=== PATIENT | female | born 1940 ===

== ENCOUNTER 2017-12-28 11:07 | Day surgery (SDC) | payer MEDICARE ==
[2017-12-23 14:18] VITALS: BMI 26.9
[2017-12-28] MEDS ORDERED: Propofol 10 mg/ml Inj (20 ML) ONE (13:54)
[2017-12-28 14:56] VITALS: RESP 16
[2017-12-28] MEDS ORDERED: Sodium Chloride 0.9% 1,000 ML IV SCH (15:00)
[2017-12-28 15:26] VITALS: PULSE 61
[2017-12-28 15:45] VITALS: BP 135/65; TEMP 98; O2SAT 99
== END 2017-12-28 16:20 | disposition home or self-care (01) ==
LOC: ENDO 11:07
PROVIDERS: ATTEND Internal Medicine Gastroenterology
DX: K92.1 Melena (principal); K63.5 Polyp of colon; K57.30 Diverticulosis of large intestine without perforation or abscess without bleeding; K64.8 Other hemorrhoids; K29.50 Unspecified chronic gastritis without bleeding
CPT/HCPCS: 43239; 45385; 88305; 88342; J2704; J7030; J7040

== ENCOUNTER 2018-07-20 07:04 | Outpatient (CLI) | payer MEDICARE | END 2018-07-20 07:05 | disposition home or self-care (01) | LOC: CARDIO 07:04 ==

== ENCOUNTER 2018-08-03 16:23 | Outpatient (CLI) | payer MEDICARE | END 2018-08-03 16:24 | disposition home or self-care (01) | LOC: RAD 16:24 | DX: G43.909 Migraine, unspecified, not intractable, without status migrainosus (principal); I73.9 Peripheral vascular disease, unspecified ==

== ENCOUNTER 2018-08-03 17:09 | Inpatient (IN) | payer MEDICARE ==
[2018-08-03 17:16] VITALS: BMI 25.1
--- NOTE | 2018-08-03 17:18 | ED PDOC ---
Arrival/HPI - General Time Seen by Provider: 08/03/18 17:10 - History of Present Illness Narrative History of Present Illness (Text): 78 y/o F c PMHx HTN, HLD, spontaneous ICH 15 years ago p/w intracranial hemorrhage. Patient has been having intermittent headache for approximately 1 week. Patient states headache was worst 3 nights ago[address] Sent to [facility] by LINDA Renteria for CT Head and found to have hemorrhage with mass effect and transported directly to ED. Patient denies any vision change, vomiting, numbness, weakness, confusion, trauma. Past Medical History - Cardiac Hx Hypertension: Yes - Neurological Hx Paralysis: No - Hematological/Oncological Hx Blood Transfusions: No - Musculoskeletal/Rheumatological Hx Musculoskeletal Disorders: Yes - Psychiatric Hx Emotional Abuse: No Hx Physical Abuse: No Hx Substance Use: No - Anesthesia Hx Anesthesia Reactions: No Hx Malignant Hyperthermia: No - Suicidal Assessment Feels Threatened In Home Enviroment: No Family/Social History Family/Social History: No Known Family HX Hx Alcohol Use: No Hx Substance Use: No Allergies/Home Meds Allergies/Adverse Reactions: Allergies No Known Allergies Allergy (Verified 12/23/17 14:18) Home Medications: Home Meds Medication Instructions Recorded Confirmed Calcium Carbonate [Calcium] 1,000 mg PO DAILY 12/23/17 07/20/18 Cholecalciferol (Vitamin D3) 2,000 units PO DAILY 12/23/17 07/20/18 [Vitamin D3] Raloxifene [Evista] 60 mg PO DAILY 12/23/17 07/20/18 Rosuvastatin Calcium [Crestor] 10 mg PO QOTHERDAY 12/23/17 07/20/18 Candesartan Cilexetil [Atacand] 4 mg PO DAILY 07/20/18 07/20/18 [id number] Ethyl Esters [OMEGA 3] 500 mg PO DAILY 07/20/18 07/20/18 Propranolol [Propranolol HCl] 10 mg PO DAILY 07/20/18 07/20/18 Review of Systems - Physician Review All systems were reviewed & negative as marked: Yes - Review of Systems Constitutional: absent: Fevers Respiratory: absent: SOB Cardiovascular: absent: Chest Pain Gastrointestinal: absent: Vomiting Physical Exam - Physical Exam Narrative Physical Exam (Text): Gen: NAD Head: NC/AT Eyes: PERRL ENT: MMM Neck: Supple Chest: No tenderness CV: Regular rate Lungs: CTA b/l Abd: Soft, NT Back: No CVA tenderness Skin: No rash Extremities: No edema Neuro: Alert, no focal deficit. CN II to XII intact. Motor 5/5 x 4. Sensation to light touch intact. Gait normal. Medical Decision Making ED Course and Treatment: EKG 63 bpm, no ST/T wave changes CXR no acute disease. Dr. Simon recommends cardene drip for SBP 120-150. HOB placed at 45 degrees. Keppra administered. Patient on no AC due to previous history of ICH. Dr. Norman consulted, recommends repeat CT at 6am. ICU accepts. Disposition/Present on Arrival - Present on Arrival Any Indicators Present on Arrival: No - Disposition Have Diagnosis and Disposition been Completed?: Yes Diagnosis: Intracranial hemorrhage Disposition: HOSPITALIZED Disposition Time: 18:30 Patient Plan: Admission, ICU Condition: CRITICAL
[2018-08-03] MEDS ORDERED: levETIRAcetam 1000mg/100ml NS 100 ML IV ONE (17:23)
[2018-08-03] MEDS ORDERED: Nicardipine 20 MG/200 ML 20 MG/200 ML BAG IV PRN (17:57)
[2018-08-03 18:17] LABS: BASO # 0.04 K/mm3 (0.0-2.0); BASO % 0.4 % (0.0-3.0); EOS # 0.1 (0.0-0.7); EOS % 1.3 % (1.5-5.0); HEMOGLOBIN 12.6 g/dL (12.0-16.0); LYMPH # 1.9 (1.2-3.4); MEAN CORPUSCULAR HEMOGLOBIN 27.8 pg (25.0-35.0); MEAN CORPUSCULAR HGB CONC 32.7 g/dl (31.0-37.0); MONO # 0.9 (0.1-0.6); MONO % 8.9 % (1.0-6.0); RBC 4.53 10^6/uL (3.5-6.1); RED CELL DISTRIBUTION WIDTH 13.6 % (11.5-14.5); WHITE BLOOD COUNT 9.5 10^3/uL (4.5-11.0)
[2018-08-03 18:26] LABS: INR 1.21; PARTIAL THROMBOPLASTIN TIME 33.2 Seconds (26.9-38.3); PROTHROMBIN TIME 13.4 SECONDS (9.4-12.5)
[2018-08-03 18:34] LABS: ALB/GLOB RATIO 1.1 (1.1-1.8); ALBUMIN 4.4 g/dL (3.0-4.8); ALT/SGPT 23 U/L (7-56); AST/SGOT 25 U/L (14-36); BLOOD UREA NITROGEN 21 mg/dL (7-21); CALCIUM 9.8 mg/dL (8.4-10.5); GFR NON-AFRICAN AMERICAN > 60
--- NOTE | 2018-08-03 21:27 | CP.PCM.HP ---
History of Present Illness - History of Present Illness History of Present Illness: Medicine History and Physical for Hospitalist Service, Dr. Torin Byers, DO PGY-1 This is a 78 y o female with PMhx HTN, HLD, prior spontaneous intracranial hemorrhage of unknown etiology 15 y ago, R breast cancer s/p lumpectomy in remission x 17 years, who presents to the ED sent in by her PMD Dr. Renteria for a bnormal Head CT results. Pt states that she has been having an intermittent headache for the past week. States the SHORT is localized to the R side of her head; pt describes the SHORT as "pushing toward the middle of my head against my brain". States the worst of her symptoms occurred 3 days ago. Pt states she went to her PMD's office with c/o these symptoms and that he sent her to do a CT scan of the head as outpatient at [facility] for further work-up. CT of Head at 16:39 on 08/03/18 demonstrated "intraparenchymal hemorrhage at the R parietal lobe with significant mass effect partially effacing the atrium of the R lateral ventricle; no significant midline shift, diffuse cerebral atrophy, chronic microangiopathy." Pt's PMD was notified by the radiologist at [facility] of the abnormal CT findings and thus instructed the pt to come to the ED immediately. Pt states her SHORT is resolved currently. Denies vision changes, tinnitus, changes in speech or being unable to articulate words, difficulty swallowing, gene ralized weakness, chest pain, sob, n/v/d/c, abd pain, urinary complaints, gait difficulties, or other symptoms. PMhx: HTN, HLD, prior spontaneous intracranial hemorrhage of unknown etiology 15 y ago, R breast cancer s/p lumpectomy in remission x 17 years PSurgHx: S/p R lumpectomy in 1994 for R breast cancer Allergies: NKDA Home meds: Propranolol 10 mg bid, Raloxifene 60 mg daily, Crestor 10 mg (takes 3 times/week) Fam hx: denies hx stroke, aneurysm, seizures, or sudden cardiac Soc hx: denies smoking, EtOH or illicit drug use PMD: Dr. Renteria Present on Admission - Present on Admission Any Indicators Present on Admission: No History of DVT/PE: No History of Uncontrolled Diabetes: No Urinary Catheter: No Decubitus Ulcer Present: No Review of Systems - Constitutional Constitutional: absent: Chills, Fever, Headache - EENT Eyes: absent: Blurred Vision, Change in Vision, Photophobia, Tunnel Vision Ears: absent: Tinnitus Nose/Mouth/Throat: absent: Dysphagia - Cardiovascular Cardiovascular: absent: Chest Pain, Dyspnea on Exertion, Leg Edema, Palpitations, Syncope - Respiratory Respiratory: absent: Cough, Dyspnea on Exertion - Neurological Neurological: Dizziness, Headaches. absent: Abnormal Gait, Abnormal Hearing, Abnormal Movements, Abnormal Speech, Behavioral Changes, Confusion, Numbness, Focal Weakness, Tingling, Tremor, Weakness Past Patient History - Past Social History Smoking Status: Never Smoked - CARDIAC Hx Hypertension: Yes - NEUROLOGICAL Hx Paralysis: No - HEMATOLOGICAL/ONCOLOGICAL Hx Blood Transfusions: No - MUSCULOSKELETAL/RHEUMATOLOGICAL Hx Musculoskeletal Disorders: Yes - PSYCHIATRIC Hx Emotional Abuse: No Hx Physical Abuse: No Hx Substance Use: No - SURGICAL HISTORY Hx Surgeries: Yes - ANESTHESIA Hx Anesthesia Reactions: No Hx Malignant Hyperthermia: No Meds Allergies/Adverse Reactions: Allergies Allergy/AdvReac Type Severity Reaction Status Date / Time No Known Allergies Allergy Verified 12/23/17 14:18 Physical Exam - Constitutional Appears: Non-toxic, No Acute Distress - Head Exam Head Exam: ATRAUMATIC, NORMOCEPHALIC - Eye Exam Eye Exam: EOMI, Normal appearance, PERRL - ENT Exam ENT Exam: Mucous Membranes Moist - Neck Exam Neck exam: Positive for: Full Rom, Normal Inspection. Negative for: Tenderness - Respiratory Exam Respiratory Exam: Clear to Auscultation Bilateral, NORMAL BREATHING PATTERN. absent: Rales, Rhonchi, Wheezes - Cardiovascular Exam Cardiovascular Exam: REGULAR RHYTHM, +S1, +S2. absent: Gallop, Rubs, Systolic Murmur - GI/Abdominal Exam GI & Abdominal Exam: Normal Bowel Sounds, Soft. absent: Distended, Organomegaly, Tenderness - Extremities Exam Extremities exam: Positive for: full ROM, normal capillary refill, normal inspection, pedal pulses present. Negative for: calf tenderness, pedal edema - Expanded Neurological Exam Expanded Patient oriented to: person, place, time Cranial nerves: EOM's Intact: Normal, Facial Sensation: Normal Cerebellar Function: Finger to Nose: Normal, Romberg: Normal Upper motor neuron: Babinski Sign: Normal, Pronator Drift: Normal Sensory exam: Lower Extremity 2 Point Discrimination: Normal, Lower Extremity Light Touch: Normal, Lower Extremity Pin Prick: Normal, Lower Extremity Temperature: Normal, Upper Extremity 2 Point Discrimination: Normal, Upper Extremity Light Touch: Normal, Upper Extremity Pin Prick: Normal, Upper Extremity Temperature: Normal Neuro motor strength exam: Left Upper Extremity: 5, Right Upper Extremity: 5, Left Lower Extremity: 5, Right Lower Extremity: 5 DTR: Patellar Left: 0, Patellar Right: 0 Coma Scale Eye Opening: SPONTANEOUS Coma Scale Motor Response: OBEYS COMMANDS Coma Scale Verbal: Oriented Coma Scale Total: 15 - Psychiatric Exam Psychiatric exam: Normal Affect, Normal Mood - Skin Skin Exam: Dry, Intact, Normal Color, Warm Results - Vital Signs Recent Vital Signs: Last Vital Signs Temp 98.5 F 08/03/18 17:25 Pulse 75 08/03/18 19:00 Resp 18 08/03/18 19:00 BP 149/80 08/03/18 19:00 Pulse Ox 95 08/03/18 19:00 - Labs Result Diagrams: 08/03/18 17:50 08/03/18 17:50 Labs: Laboratory Results - last 24 hr 08/03/18 08/03/18 08/03/18 17:50 17:50 17:50 WBC 9.5 RBC 4.53 Hgb 12.6 Hct 38.5 MCV 85.0 MCH 27.8 MCHC 32.7 RDW 13.6 Plt Count 198 MPV 12.0 H Neut % (Auto) 69.4 H Lymph % (Auto) 20.0 L Maverick % (Auto) 8.9 H Eos % (Auto) 1.3 L Baso % (Auto) 0.4 Lymph # (Auto) 1.9 Maverick # (Auto) 0.9 H Eos # (Auto) 0.1 Baso # (Auto) 0.04 Absolute Neuts (auto) 6.61 H PT 13.4 H INR 1.21 APTT 33.2 Sodium 139 Potassium 3.9 Chloride 105 Carbon Dioxide 27 Anion Gap 11 BUN 21 Creatinine 0.9 Est GFR ( Amer) > 60 Est GFR (Non-Af Amer) > 60 Random Glucose 127 H Calcium 9.8 Total Bilirubin 0.9 AST 25 ALT 23 Alkaline Phosphatase 58 Total Protein 8.3 Albumin 4.4 Globulin 3.9 Albumin/Globulin Ratio 1.1 Blood Type Antibody Screen BBK History Checked 08/03/18 17:50 WBC RBC Hgb Hct MCV MCH MCHC RDW Plt Count MPV Neut % (Auto) Lymph % (Auto) Maverick % (Auto) Eos % (Auto) Baso % (Auto) Lymph # (Auto) Maverick # (Auto) Eos # (Auto) Baso # (Auto) Absolute Neuts (auto) PT INR APTT Sodium Potassium Chloride Carbon Dioxide Anion Gap BUN Creatinine Est GFR ( Amer) Est GFR (Non-Af Amer) Random Glucose Calcium Total Bilirubin AST ALT Alkaline Phosphatase Total Protein Albumin Globulin Albumin/Globulin Ratio Blood Type O POSITIVE Antibody Screen Negative BBK History Checked No verified bt Assessment & Plan - Assessment and Plan (Free Text) Assessment: This is a 78 y o female with PMhx HTN, HLD, prior spontaneous intracranial h emorrhage of unknown etiology 15 y ago, R breast cancer s/p lumpectomy in remission x 17 years, who presents to the ED sent in by her PMD Dr. Renteria for abnormal Head CT results. Admitted for Intracranial Hemorrhage. Neurology and Neurosurgery consulted. Plan: Intracranial Hemorrhage Possibly 2/2 to small vessel dz; pt denies hx trauma, aneurysm or AVM Admit to ICU Neurology (Dr. Simon) and Neurosurgery consulted (Dr. Norman), recs appreciated; specialists recommend repeat CT head at 6 am tomorrow CTA head/neck study done, f/u results EKG on admission NSR at [address], [address]-t wave changes appreciated Neuro checks q 1 h Seizure/fall precautions Elevate head of bed at 45 degrees NPO Speech/swallow eval pending On Cardene drip Loaded w/ Keppra x1 in ED A1c pending Hx HTN BP 149/80, cont to trend vitals, goal to keep systolic BP 140-160 Home med Propranolol held on admission Currently on Cardene drip Hx HLD C/w home med Crestor Lipid panel pending Hx R breast ca s/p lumpectomy Home med Raloxifene held on admission Pt seen, examined with, and plan discussed with Dr. Torin Macdonald, attending physician. Trino Byers DO PGY-1, Director Of Elementary Education Pager #[phone]
[2018-08-04 06:24] LABS: BASO # 0.04 K/mm3 (0.0-2.0); BASO % 0.4 % (0.0-3.0); EOS # 0.2 (0.0-0.7); EOS % 2.5 % (1.5-5.0); HEMOGLOBIN 11.3 g/dL (12.0-16.0); LYMPH # 1.7 (1.2-3.4); LYMPH % 18.3 % (22.0-35.0); MEAN CELL VOLUME 84.7 fl (80.0-105.0); MEAN CORPUSCULAR HGB CONC 31.9 g/dl (31.0-37.0); MEAN PLATELET VOLUME 12.1 fl (7.0-11.0); MONO # 0.7 (0.1-0.6); MONO % 7.9 % (1.0-6.0); RBC 4.18 10^6/uL (3.5-6.1); RED CELL DISTRIBUTION WIDTH 13.6 % (11.5-14.5); WHITE BLOOD COUNT 9.2 10^3/uL (4.5-11.0)
[2018-08-04 06:32] LABS: ALB/GLOB RATIO 1.1 (1.1-1.8); ALBUMIN 3.8 g/dL (3.0-4.8); ALT/SGPT 22 U/L (7-56); AST/SGOT 21 U/L (14-36); BLOOD UREA NITROGEN 20 mg/dL (7-21); CALCIUM 9.1 mg/dL (8.4-10.5); GFR NON-AFRICAN AMERICAN > 60; HDL CHOLESTEROL 49 mg/dL (29-60)
[2018-08-04 06:42] LABS: LDL CHOLESTEROL 49 mg/dL (0-129)
--- NOTE | 2018-08-04 08:47 | CP.CCUPN ---
<Wilfrid Ulrich - Last Filed: 08/04/18 15:07> CCU Subjective - Physician Review Subjective (Free Text): 08/04/18 08:43 Wilfrid Ulrich PGY1 Critical Care Progress Note Patient seen and examined at bedside. No acute events reported overnight. Patient seen resting comfortably and denies any complaints at this time. She denies CP, SOB, headaches, blurry vision, tinnitus, nausea, vomiting, abdominal pain, urinary complaints, numbness, tingling and swelling. She states she slept comfortably and has good appetite. Per neurosurgery, no intervention at this time. Patient transferred to [facility]. CCU Objective - Vital Signs / Intake & Output Vital Signs (Last 4 hours): Vital Signs Pulse Resp BP Pulse Ox 08/04/18 08:10 59 L 15 95 08/04/18 08:00 58 L 21 115/60 95 08/04/18 07:50 68 17 93 L 08/04/18 07:40 68 31 H 93 L 08/04/18 07:30 70 20 93 L 08/04/18 07:20 74 93 L 08/04/18 07:10 68 13 94 L 08/04/18 07:00 65 117/57 L 95 08/04/18 06:50 70 19 95 08/04/18 06:40 68 94 L 08/04/18 06:30 74 19 95 08/04/18 06:20 71 16 94 L 08/04/18 06:18 71 16 109/45 L 93 L 08/04/18 06:17 73 14 08/04/18 05:57 65 18 106/54 L 95 08/04/18 05:50 55 L 18 93 L 08/04/18 05:40 53 L 17 92 L 08/04/18 05:30 62 11 L 95 08/04/18 05:20 56 L 17 92 L 08/04/18 05:10 55 L 17 92 L 08/04/18 05:00 63 13 99/46 L 93 L 08/04/18 04:50 57 L 17 91 L Intake and Output (Last 8hrs): Intake & Output 08/03/18 08/04/18 08/04/18 22:59 06:59 14:59 Weight 137 lb 9.6 oz 140 lb 1.6 oz - Physical Exam Head: Positive for: Normocephalic Pupils: Positive for: PERRL Extroacular Muscles: Positive for: EOMI Mouth: Positive for: Moist Mucous Membranes Neck: Positive for: Normal Range of Motion Respiratory/Chest: Positive for: Clear to Auscultation. Negative for: Respiratory Distress, Accessory Muscle Use Cardiovascular: Positive for: Regular Rate and Rhythm, Normal S1, S2 Abdomen: Positive for: Normal Bowel Sounds. Negative for: Tenderness, Rebound, Guarding Upper Extremity: Positive for: Normal Inspection, Normal ROM, NORMAL PULSES Lower Extremity: Positive for: Normal Inspection, NORMAL PULSES, Normal ROM. Negative for: CALF TENDERNESS Neurological: Positive for: GCS=15, CN II-XII Intact, Speech Normal, Motor Func Grossly Intact, Normal Sensory Function, Other (muscle strength in upper and lower extremitis 5/5 B/L ) Psychiatric: Positive for: Alert, Oriented x 3 - Medications Active Medications: Active Medications Generic Name Dose Route Start Last Admin Trade Name Freq PRN Reason Stop Dose Admin Atorvastatin Calcium 40 mg 08/05/18 10:00 Lipitor PO QOTHERDAY KEARA Nicardipine HCl 20 mg in 200 mls @ 50 mls/hr 08/03/18 17:57 Cardene Iv Premix IV .Q4H PRN TITRATE PER MD ORDER Protocol 5 MG/HR - Patient Studies Lab Studies: Lab Studies 08/04/18 08/04/18 08/03/18 Range/Units 05:25 05:25 22:55 WBC 9.2 (4.5-11.0) 10^3/uL RBC 4.18 (3.5-6.1) 10^6/uL Hgb 11.3 L (12.0-16.0) g/dL Hct 35.4 L (36.0-48.0) % MCV 84.7 (80.0-105.0) fl MCH 27.0 (25.0-35.0) pg MCHC 31.9 (31.0-37.0) g/dl RDW 13.6 (11.5-14.5) % Plt Count 182 (120.0-450.0) 10^3/uL MPV 12.1 H (7.0-11.0) fl Neut % (Auto) 70.9 H (50.0-68.0) % Lymph % (Auto) 18.3 L (22.0-35.0) % [place] % (Auto) 7.9 H (1.0-6.0) % Eos % (Auto) 2.5 (1.5-5.0) % Baso % (Auto) 0.4 (0.0-3.0) % Lymph # (Auto) 1.7 (1.2-3.4) [place] # (Auto) 0.7 H (0.1-0.6) Eos # (Auto) 0.2 (0.0-0.7) Baso # (Auto) 0.04 (0.0-2.0) K/mm3 Absolute Neuts (auto) 6.54 H (1.4-6.5) PT (9.4-12.5) SECONDS INR APTT (26.9-38.3) Seconds Sodium 140 (132-148) mmol/L Potassium 4.0 (3.6-5.0) mmol/L Chloride 110 H (98-107) mmol/L Carbon Dioxide 23 (21-33) mmol/L Anion Gap 10 (10-20) BUN 20 (7-21) mg/dL Creatinine 0.8 (0.7-1.2) mg/dl Est GFR ( Amer) > 60 Est GFR (Non-Af Amer) > 60 POC Glucose (mg/dL) (65-110) mg/dL Random Glucose 96 (70-110) mg/dL Calcium 9.1 (8.4-10.5) mg/dL Phosphorus 3.9 (2.5-4.5) mg/dL Magnesium 2.2 (1.7-2.2) mg/dL Total Bilirubin 0.9 (0.2-1.3) mg/dL AST 21 (14-36) U/L ALT 22 (7-56) U/L Alkaline Phosphatase 55 (38-126) U/L Total Protein 7.3 (5.8-8.3) g/dL Albumin 3.8 (3.0-4.8) g/dL Globulin 3.6 gm/dL Albumin/Globulin Ratio 1.1 (1.1-1.8) Triglycerides 84 (35-160) mg/dL Cholesterol 116 L (130-200) mg/dL LDL Cholesterol Direct 49 (0-129) mg/dL HDL Cholesterol 49 (29-60) mg/dL Blood Type Blood Type Confirm O POSITIVE Antibody Screen BBK History Checked 08/03/18 08/03/18 08/03/18 Range/Units 17:50 17:50 17:50 WBC (4.5-11.0) 10^3/uL RBC (3.5-6.1) 10^6/uL Hgb (12.0-16.0) g/dL Hct (36.0-48.0) % MCV (80.0-105.0) fl MCH (25.0-35.0) pg MCHC (31.0-37.0) g/dl RDW (11.5-14.5) % Plt Count (120.0-450.0) 10^3/uL MPV (7.0-11.0) fl Neut % (Auto) (50.0-68.0) % Lymph % (Auto) (22.0-35.0) % [place] % (Auto) (1.0-6.0) % Eos % (Auto) (1.5-5.0) % Baso % (Auto) (0.0-3.0) % Lymph # (Auto) (1.2-3.4) [place] # (Auto) (0.1-0.6) Eos # (Auto) (0.0-0.7) Baso # (Auto) (0.0-2.0) K/mm3 Absolute Neuts (auto) (1.4-6.5) PT 13.4 H (9.4-12.5) SECONDS INR 1.21 APTT 33.2 (26.9-38.3) Seconds Sodium 139 (132-148) mmol/L Potassium 3.9 (3.6-5.0) mmol/L Chloride 105 (98-107) mmol/L Carbon Dioxide 27 (21-33) mmol/L Anion Gap 11 (10-20) BUN 21 (7-21) mg/dL Creatinine 0.9 (0.7-1.2) mg/dl Est GFR ( Amer) > 60 Est GFR (Non-Af Amer) > 60 POC Glucose (mg/dL) (65-110) mg/dL Random Glucose 127 H (70-110) mg/dL Calcium 9.8 (8.4-10.5) mg/dL Phosphorus (2.5-4.5) mg/dL Magnesium (1.7-2.2) mg/dL Total Bilirubin 0.9 (0.2-1.3) mg/dL AST 25 (14-36) U/L ALT 23 (7-56) U/L Alkaline Phosphatase 58 (38-126) U/L Total Protein 8.3 (5.8-8.3) g/dL Albumin 4.4 (3.0-4.8) g/dL Globulin 3.9 gm/dL Albumin/Globulin Ratio 1.1 (1.1-1.8) Triglycerides (35-160) mg/dL Cholesterol (130-200) mg/dL LDL Cholesterol Direct (0-129) mg/dL HDL Cholesterol (29-60) mg/dL Blood Type O POSITIVE Blood Type Confirm Antibody Screen Negative BBK History Checked No verified bt 08/03/18 08/03/18 Range/Units 17:50 17:43 WBC 9.5 (4.5-11.0) 10^3/uL RBC 4.53 (3.5-6.1) 10^6/uL Hgb 12.6 (12.0-16.0) g/dL Hct 38.5 (36.0-48.0) % MCV 85.0 (80.0-105.0) fl MCH 27.8 (25.0-35.0) pg MCHC 32.7 (31.0-37.0) g/dl RDW 13.6 (11.5-14.5) % Plt Count 198 (120.0-450.0) 10^3/uL MPV 12.0 H (7.0-11.0) fl Neut % (Auto) 69.4 H (50.0-68.0) % Lymph % (Auto) 20.0 L (22.0-35.0) % [place] % (Auto) 8.9 H (1.0-6.0) % Eos % (Auto) 1.3 L (1.5-5.0) % Baso % (Auto) 0.4 (0.0-3.0) % Lymph # (Auto) 1.9 (1.2-3.4) [place] # (Auto) 0.9 H (0.1-0.6) Eos # (Auto) 0.1 (0.0-0.7) Baso # (Auto) 0.04 (0.0-2.0) K/mm3 Absolute Neuts (auto) 6.61 H (1.4-6.5) PT (9.4-12.5) SECONDS INR APTT (26.9-38.3) Seconds Sodium (132-148) mmol/L Potassium (3.6-5.0) mmol/L Chloride (98-107) mmol/L Carbon Dioxide (21-33) mmol/L Anion Gap (10-20) BUN (7-21) mg/dL Creatinine (0.7-1.2) mg/dl Est GFR ( Amer) Est GFR (Non-Af Amer) POC Glucose (mg/dL) 130 H (65-110) mg/dL Random Glucose (70-110) mg/dL Calcium (8.4-10.5) mg/dL Phosphorus (2.5-4.5) mg/dL Magnesium (1.7-2.2) mg/dL Total Bilirubin (0.2-1.3) mg/dL AST (14-36) U/L ALT (7-56) U/L Alkaline Phosphatase (38-126) U/L Total Protein (5.8-8.3) g/dL Albumin (3.0-4.8) g/dL Globulin gm/dL Albumin/Globulin Ratio (1.1-1.8) Triglycerides (35-160) mg/dL Cholesterol (130-200) mg/dL LDL Cholesterol Direct (0-129) mg/dL HDL Cholesterol (29-60) mg/dL Blood Type Blood Type Confirm Antibody Screen BBK History Checked Laboratory Results - last 24 hr 08/03/18 08/03/18 08/03/18 17:43 17:50 17:50 WBC 9.5 RBC 4.53 Hgb 12.6 Hct 38.5 MCV 85.0 MCH 27.8 MCHC 32.7 RDW 13.6 Plt Count 198 MPV 12.0 H Neut % (Auto) 69.4 H Lymph % (Auto) 20.0 L [place] % (Auto) 8.9 H Eos % (Auto) 1.3 L Baso % (Auto) 0.4 Lymph # (Auto) 1.9 [place] # (Auto) 0.9 H Eos # (Auto) 0.1 Baso # (Auto) 0.04 Absolute Neuts (auto) 6.61 H PT 13.4 H INR 1.21 APTT 33.2 Sodium Potassium Chloride Carbon Dioxide Anion Gap BUN Creatinine Est GFR ( Amer) Est GFR (Non-Af Amer) POC Glucose (mg/dL) 130 H Random Glucose Calcium Phosphorus Magnesium Total Bilirubin AST ALT Alkaline Phosphatase Total Protein Albumin Globulin Albumin/Globulin Ratio Triglycerides Cholesterol LDL Cholesterol Direct HDL Cholesterol Blood Type Blood Type Confirm Antibody Screen BBK History Checked 08/03/18 08/03/18 08/03/18 17:50 17:50 22:55 WBC RBC Hgb Hct MCV MCH MCHC RDW Plt Count MPV Neut % (Auto) Lymph % (Auto) [place] % (Auto) Eos % (Auto) Baso % (Auto) Lymph # (Auto) [place] # (Auto) Eos # (Auto) Baso # (Auto) Absolute Neuts (auto) PT INR APTT Sodium 139 Potassium 3.9 Chloride 105 Carbon Dioxide 27 Anion Gap 11 BUN 21 Creatinine 0.9 Est GFR ( Amer) > 60 Est GFR (Non-Af Amer) > 60 POC Glucose (mg/dL) Random Glucose 127 H Calcium 9.8 Phosphorus Magnesium Total Bilirubin 0.9 AST 25 ALT 23 Alkaline Phosphatase 58 Total Protein 8.3 Albumin 4.4 Globulin 3.9 Albumin/Globulin Ratio 1.1 Triglycerides Cholesterol LDL Cholesterol Direct HDL Cholesterol Blood Type O POSITIVE Blood Type Confirm O POSITIVE Antibody Screen Negative BBK History Checked No verified bt 08/04/18 08/04/18 05:25 05:25 WBC 9.2 RBC 4.18 Hgb 11.3 L Hct 35.4 L MCV 84.7 MCH 27.0 MCHC 31.9 RDW 13.6 Plt Count 182 MPV 12.1 H Neut % (Auto) 70.9 H Lymph % (Auto) 18.3 L [place] % (Auto) 7.9 H Eos % (Auto) 2.5 Baso % (Auto) 0.4 Lymph # (Auto) 1.7 [place] # (Auto) 0.7 H Eos # (Auto) 0.2 Baso # (Auto) 0.04 Absolute Neuts (auto) 6.54 H PT INR APTT Sodium 140 Potassium 4.0 Chloride 110 H Carbon Dioxide 23 Anion Gap 10 BUN 20 Creatinine 0.8 Est GFR ( Amer) > 60 Est GFR (Non-Af Amer) > 60 POC Glucose (mg/dL) Random Glucose 96 Calcium 9.1 Phosphorus 3.9 Magnesium 2.2 Total Bilirubin 0.9 AST 21 ALT 22 Alkaline Phosphatase 55 Total Protein 7.3 Albumin 3.8 Globulin 3.6 Albumin/Globulin Ratio 1.1 Triglycerides 84 Cholesterol 116 L LDL Cholesterol Direct 49 HDL Cholesterol 49 Blood Type Blood Type Confirm Antibody Screen BBK History Checked EKG/Cardiology Studies: Cardiology / EKG Studies 08/03/18 17:41 ELECTROCARDIOGRAM Stat Comment: Reason For Exam: intracranial hemorrhage Critical Care Progress Note - Nutrition Nutrition: Nutrition Category Date Time Status NPO Diet [DIET] Diets 08/03/18 Dinner Ordered Assessment/Plan - Assessment and Plan (Free Text) Assessment: This is a 78 y o female with PMhx HTN, HLD, prior spontaneous intracranial hemorrhage of unknown etiology 15 y ago, R breast cancer s/p lumpectomy in remission x 17 years, who presents to the ED sent in by her PMD Dr. Renteria for abnormal Head CT results. CT head on 08/03/18 showed intraparenchymal hemorrhage at the R parietal lobe with significant mass effect partially effacing the atrium of the R lateral ventricle; no significant midline shift, diffuse cerebral atrophy, chronic microangiopathy. Patient admitted to ICU for intrapare nchymal hemorrhage. Per neurosurgery, no intervention at this time. Transferred to [facility]. Plan: Neuro: Intracranial Hemorrhage -neurochecks, elevate HOB 45 degrees -Neurology (Dr. Simon) and Neurosurgery consulted (Dr. Norman) -per neursurgery, no neurosurgical interventions are indicated at this time -CTA head neck shows no acute process -CT head shows stable right parietal intraparenchymal hemorrhage, no midline shit -MRI Brain pending -Seizure/fall precautions -Speech/swallow eval pending -On Cardene drip -maintain normothermia -AAO x3, moving extremities spontaneously past midline Cardio: -maintain MAP>65 -Maintain SBP between 120 and 150mmHg -will monitor vitals including HR and BP closely -echo pending Hx HLD -continue home med Crestor -lipid panel unremarkable -troponin pending Hx HTN -goal to keep systolic BP 140-160 -currently on Cardene drip Lungs: -SaO2 >90% -supplementary O2 PRN Renal: -maintain euvolemia -avoid nephrotoxic agents, hypochloremia -replace electrolytes as needed -BUN/Cr WNL Heme: -Hg today is 11.3 from 12.6 , will monitor -INR 1.21 -DVT ppx Endo: -maintain euglycemia ID: -WBC is WNL today, afebrile GI: -HHD Patient seen and case discussed with attending, Dr. Alva <Manuel Alva - Last Filed: 08/04/18 16:04> CCU Objective - Vital Signs / Intake & Output Vital Signs (Last 4 hours): Vital Signs Pulse 08/04/18 14:00 80 Intake and Output (Last 8hrs): Intake & Output 08/04/18 08/04/18 08/04/18 06:59 14:59 22:59 Weight 140 lb 1.6 oz - Medications Active Medications: Active Medications Generic Name Dose Route Start Last Admin Trade Name Freq PRN Reason Stop Dose Admin Amlodipine Besylate 5 mg 08/05/18 10:00 Norvasc PO DAILY [facility] Atorvastatin Calcium 40 mg 08/05/18 10:00 Lipitor PO QOTHERDAY KEARA Nicardipine HCl 20 mg in 200 mls @ 50 mls/hr 08/03/18 17:57 Cardene Iv Premix IV .Q4H PRN TITRATE PER MD ORDER Protocol 5 MG/HR Sodium Chloride 1,000 mls @ 100 mls/hr 08/04/18 10:00 08/04/18 11:00 Sodium Chloride 0.9% IV Not Given .Q10H KEARA Levetiracetam 500 mg 08/04/18 12:00 08/04/18 12:24 Keppra PO 08/11/18 12:01 500 mg BID KEARA Administration - Patient Studies Lab Studies: Lab Studies 08/04/18 08/04/18 08/04/18 Range/Units 05:25 05:25 05:25 WBC (4.5-11.0) 10^3/uL RBC (3.5-6.1) 10^6/uL Hgb (12.0-16.0) g/dL Hct (36.0-48.0) % MCV (80.0-105.0) fl MCH (25.0-35.0) pg MCHC (31.0-37.0) g/dl RDW (11.5-14.5) % Plt Count (120.0-450.0) 10^3/uL MPV (7.0-11.0) fl Neut % (Auto) (50.0-68.0) % Lymph % (Auto) (22.0-35.0) % [place] % (Auto) (1.0-6.0) % Eos % (Auto) (1.5-5.0) % Baso % (Auto) (0.0-3.0) % Lymph # (Auto) (1.2-3.4) [place] # (Auto) (0.1-0.6) Eos # (Auto) (0.0-0.7) Baso # (Auto) (0.0-2.0) K/mm3 Absolute Neuts (auto) (1.4-6.5) PT (9.4-12.5) SECONDS INR APTT (26.9-38.3) Seconds Sodium 140 (132-148) mmol/L Potassium 4.0 (3.6-5.0) mmol/L Chloride 110 H (98-107) mmol/L Carbon Dioxide 23 (21-33) mmol/L Anion Gap 10 (10-20) BUN 20 (7-21) mg/dL Creatinine 0.8 (0.7-1.2) mg/dl Est GFR ( Amer) > 60 Est GFR (Non-Af Amer) > 60 POC Glucose (mg/dL) (65-110) mg/dL Random Glucose 96 (70-110) mg/dL Hemoglobin A1c 5.9 (4.2-6.5) % Calcium 9.1 (8.4-10.5) mg/dL Phosphorus 3.9 (2.5-4.5) mg/dL Magnesium 2.2 (1.7-2.2) mg/dL Total Bilirubin 0.9 (0.2-1.3) mg/dL AST 21 (14-36) U/L ALT 22 (7-56) U/L Alkaline Phosphatase 55 (38-126) U/L Troponin I < 0.01 ng/mL Total Protein 7.3 (5.8-8.3) g/dL Albumin 3.8 (3.0-4.8) g/dL Globulin 3.6 gm/dL Albumin/Globulin Ratio 1.1 (1.1-1.8) Triglycerides 84 (35-160) mg/dL Cholesterol 116 L (130-200) mg/dL LDL Cholesterol Direct 49 (0-129) mg/dL HDL Cholesterol 49 (29-60) mg/dL Blood Type Blood Type Confirm Antibody Screen BBK History Checked 08/04/18 08/03/18 08/03/18 Range/Units 05:25 22:55 17:50 WBC 9.2 (4.5-11.0) 10^3/uL RBC 4.18 (3.5-6.1) 10^6/uL Hgb 11.3 L (12.0-16.0) g/dL Hct 35.4 L (36.0-48.0) % MCV 84.7 (80.0-105.0) fl MCH 27.0 (25.0-35.0) pg MCHC 31.9 (31.0-37.0) g/dl RDW 13.6 (11.5-14.5) % Plt Count 182 (120.0-450.0) 10^3/uL MPV 12.1 H (7.0-11.0) fl Neut % (Auto) 70.9 H (50.0-68.0) % Lymph % (Auto) 18.3 L (22.0-35.0) % [place] % (Auto) 7.9 H (1.0-6.0) % Eos % (Auto) 2.5 (1.5-5.0) % Baso % (Auto) 0.4 (0.0-3.0) % Lymph # (Auto) 1.7 (1.2-3.4) [place] # (Auto) 0.7 H (0.1-0.6) Eos # (Auto) 0.2 (0.0-0.7) Baso # (Auto) 0.04 (0.0-2.0) K/mm3 Absolute Neuts (auto) 6.54 H (1.4-6.5) PT (9.4-12.5) SECONDS INR APTT (26.9-38.3) Seconds Sodium (132-148) mmol/L Potassium (3.6-5.0) mmol/L Chloride (98-107) mmol/L Carbon Dioxide (21-33) mmol/L Anion Gap (10-20) BUN (7-21) mg/dL Creatinine (0.7-1.2) mg/dl Est GFR ( Amer) Est GFR (Non-Af Amer) POC Glucose (mg/dL) (65-110) mg/dL Random Glucose (70-110) mg/dL Hemoglobin A1c (4.2-6.5) % Calcium (8.4-10.5) mg/dL Phosphorus (2.5-4.5) mg/dL Magnesium (1.7-2.2) mg/dL Total Bilirubin (0.2-1.3) mg/dL AST (14-36) U/L ALT (7-56) U/L Alkaline Phosphatase (38-126) U/L Troponin I ng/mL Total Protein (5.8-8.3) g/dL Albumin (3.0-4.8) g/dL Globulin gm/dL Albumin/Globulin Ratio (1.1-1.8) Triglycerides (35-160) mg/dL Cholesterol (130-200) mg/dL LDL Cholesterol Direct (0-129) mg/dL HDL Cholesterol (29-60) mg/dL Blood Type O POSITIVE Blood Type Confirm O POSITIVE Antibody Screen Negative BBK History Checked No verified bt 08/03/18 08/03/18 08/03/18 Range/Units 17:50 17:50 17:50 WBC 9.5 (4.5-11.0) 10^3/uL RBC 4.53 (3.5-6.1) 10^6/uL Hgb 12.6 (12.0-16.0) g/dL Hct 38.5 (36.0-48.0) % MCV 85.0 (80.0-105.0) fl MCH 27.8 (25.0-35.0) pg MCHC 32.7 (31.0-37.0) g/dl RDW 13.6 (11.5-14.5) % Plt Count 198 (120.0-450.0) 10^3/uL MPV 12.0 H (7.0-11.0) fl Neut % (Auto) 69.4 H (50.0-68.0) % Lymph % (Auto) 20.0 L (22.0-35.0) % [place] % (Auto) 8.9 H (1.0-6.0) % Eos % (Auto) 1.3 L (1.5-5.0) % Baso % (Auto) 0.4 (0.0-3.0) % Lymph # (Auto) 1.9 (1.2-3.4) [place] # (Auto) 0.9 H (0.1-0.6) Eos # (Auto) 0.1 (0.0-0.7) Baso # (Auto) 0.04 (0.0-2.0) K/mm3 Absolute Neuts (auto) 6.61 H (1.4-6.5) PT 13.4 H (9.4-12.5) SECONDS INR 1.21 APTT 33.2 (26.9-38.3) Seconds Sodium 139 (132-148) mmol/L Potassium 3.9 (3.6-5.0) mmol/L Chloride 105 (98-107) mmol/L Carbon Dioxide 27 (21-33) mmol/L Anion Gap 11 (10-20) BUN 21 (7-21) mg/dL Creatinine 0.9 (0.7-1.2) mg/dl Est GFR ( Amer) > 60 Est GFR (Non-Af Amer) > 60 POC Glucose (mg/dL) (65-110) mg/dL Random Glucose 127 H (70-110) mg/dL Hemoglobin A1c (4.2-6.5) % Calcium 9.8 (8.4-10.5) mg/dL Phosphorus (2.5-4.5) mg/dL Magnesium (1.7-2.2) mg/dL Total Bilirubin 0.9 (0.2-1.3) mg/dL AST 25 (14-36) U/L ALT 23 (7-56) U/L Alkaline Phosphatase 58 (38-126) U/L Troponin I ng/mL Total Protein 8.3 (5.8-8.3) g/dL Albumin 4.4 (3.0-4.8) g/dL Globulin 3.9 gm/dL Albumin/Globulin Ratio 1.1 (1.1-1.8) Triglycerides (35-160) mg/dL Cholesterol (130-200) mg/dL LDL Cholesterol Direct (0-129) mg/dL HDL Cholesterol (29-60) mg/dL Blood Type Blood Type Confirm Antibody Screen BBK History Checked 08/03/18 Range/Units 17:43 WBC (4.5-11.0) 10^3/uL RBC (3.5-6.1) 10^6/uL Hgb (12.0-16.0) g/dL Hct (36.0-48.0) % MCV (80.0-105.0) fl MCH (25.0-35.0) pg MCHC (31.0-37.0) g/dl RDW (11.5-14.5) % Plt Count (120.0-450.0) 10^3/uL MPV (7.0-11.0) fl Neut % (Auto) (50.0-68.0) % Lymph % (Auto) (22.0-35.0) % [place] % (Auto) (1.0-6.0) % Eos % (Auto) (1.5-5.0) % Baso % (Auto) (0.0-3.0) % Lymph # (Auto) (1.2-3.4) [place] # (Auto) (0.1-0.6) Eos # (Auto) (0.0-0.7) Baso # (Auto) (0.0-2.0) K/mm3 Absolute Neuts (auto) (1.4-6.5) PT (9.4-12.5) SECONDS INR APTT (26.9-38.3) Seconds Sodium (132-148) mmol/L Potassium (3.6-5.0) mmol/L Chloride (98-107) mmol/L Carbon Dioxide (21-33) mmol/L Anion Gap (10-20) BUN (7-21) mg/dL Creatinine (0.7-1.2) mg/dl Est GFR ( Amer) Est GFR (Non-Af Amer) POC Glucose (mg/dL) 130 H (65-110) mg/dL Random Glucose (70-110) mg/dL Hemoglobin A1c (4.2-6.5) % Calcium (8.4-10.5) mg/dL Phosphorus (2.5-4.5) mg/dL Magnesium (1.7-2.2) mg/dL Total Bilirubin (0.2-1.3) mg/dL AST (14-36) U/L ALT (7-56) U/L Alkaline Phosphatase (38-126) U/L Troponin I ng/mL Total Protein (5.8-8.3) g/dL Albumin (3.0-4.8) g/dL Globulin gm/dL Albumin/Globulin Ratio (1.1-1.8) Triglycerides (35-160) mg/dL Cholesterol (130-200) mg/dL LDL Cholesterol Direct (0-129) mg/dL HDL Cholesterol (29-60) mg/dL Blood Type Blood Type Confirm Antibody Screen BBK History Checked Laboratory Results - last 24 hr 08/03/18 08/03/18 08/03/18 17:43 17:50 17:50 WBC 9.5 RBC 4.53 Hgb 12.6 Hct 38.5 MCV 85.0 MCH 27.8 MCHC 32.7 RDW 13.6 Plt Count 198 MPV 12.0 H Neut % (Auto) 69.4 H Lymph % (Auto) 20.0 L [place] % (Auto) 8.9 H Eos % (Auto) 1.3 L Baso % (Auto) 0.4 Lymph # (Auto) 1.9 [place] # (Auto) 0.9 H Eos # (Auto) 0.1 Baso # (Auto) 0.04 Absolute Neuts (auto) 6.61 H PT 13.4 H INR 1.21 APTT 33.2 Sodium Potassium Chloride Carbon Dioxide Anion Gap BUN Creatinine Est GFR ( Amer) Est GFR (Non-Af Amer) POC Glucose (mg/dL) 130 H Random Glucose Hemoglobin A1c Calcium Phosphorus Magnesium Total Bilirubin AST ALT Alkaline Phosphatase Troponin I Total Protein Albumin Globulin Albumin/Globulin Ratio Triglycerides Cholesterol LDL Cholesterol Direct HDL Cholesterol Blood Type Blood Type Confirm Antibody Screen BBK History Checked 08/03/18 08/03/18 08/03/18 17:50 17:50 22:55 WBC RBC Hgb Hct MCV MCH MCHC RDW Plt Count MPV Neut % (Auto) Lymph % (Auto) [place] % (Auto) Eos % (Auto) Baso % (Auto) Lymph # (Auto) [place] # (Auto) Eos # (Auto) Baso # (Auto) Absolute Neuts (auto) PT INR APTT Sodium 139 Potassium 3.9 Chloride 105 Carbon Dioxide 27 Anion Gap 11 BUN 21 Creatinine 0.9 Est GFR ( Amer) > 60 Est GFR (Non-Af Amer) > 60 POC Glucose (mg/dL) Random Glucose 127 H Hemoglobin A1c Calcium 9.8 Phosphorus Magnesium Total Bilirubin 0.9 AST 25 ALT 23 Alkaline Phosphatase 58 Troponin I Total Protein 8.3 Albumin 4.4 Globulin 3.9 Albumin/Globulin Ratio 1.1 Triglycerides Cholesterol LDL Cholesterol Direct HDL Cholesterol Blood Type O POSITIVE Blood Type Confirm O POSITIVE Antibody Screen Negative BBK History Checked No verified bt 08/04/18 08/04/18 08/04/18 05:25 05:25 05:25 WBC 9.2 RBC 4.18 Hgb 11.3 L Hct 35.4 L MCV 84.7 MCH 27.0 MCHC 31.9 RDW 13.6 Plt Count 182 MPV 12.1 H Neut % (Auto) 70.9 H Lymph % (Auto) 18.3 L [place] % (Auto) 7.9 H Eos % (Auto) 2.5 Baso % (Auto) 0.4 Lymph # (Auto) 1.7 [place] # (Auto) 0.7 H Eos # (Auto) 0.2 Baso # (Auto) 0.04 Absolute Neuts (auto) 6.54 H PT INR APTT Sodium 140 Potassium 4.0 Chloride 110 H Carbon Dioxide 23 Anion Gap 10 BUN 20 Creatinine 0.8 Est GFR ( Amer) > 60 Est GFR (Non-Af Amer) > 60 POC Glucose (mg/dL) Random Glucose 96 Hemoglobin A1c 5.9 Calcium 9.1 Phosphorus 3.9 Magnesium 2.2 Total Bilirubin 0.9 AST 21 ALT 22 Alkaline Phosphatase 55 Troponin I Total Protein 7.3 Albumin 3.8 Globulin 3.6 Albumin/Globulin Ratio 1.1 Triglycerides 84 Cholesterol 116 L LDL Cholesterol Direct 49 HDL Cholesterol 49 Blood Type Blood Type Confirm Antibody Screen BBK History Checked 08/04/18 05:25 WBC RBC Hgb Hct MCV MCH MCHC RDW Plt Count MPV Neut % (Auto) Lymph % (Auto) [place] % (Auto) Eos % (Auto) Baso % (Auto) Lymph # (Auto) [place] # (Auto) Eos # (Auto) Baso # (Auto) Absolute Neuts (auto) PT INR APTT Sodium Potassium Chloride Carbon Dioxide Anion Gap BUN Creatinine Est GFR ( Amer) Est GFR (Non-Af Amer) POC Glucose (mg/dL) Random Glucose Hemoglobin A1c Calcium Phosphorus Magnesium Total Bilirubin AST ALT Alkaline Phosphatase Troponin I < 0.01 Total Protein Albumin Globulin Albumin/Globulin Ratio Triglycerides Cholesterol LDL Cholesterol Direct HDL Cholesterol Blood Type Blood Type Confirm Antibody Screen BBK History Checked Radiology Impressions: Radiology Impressions Head/Neck CTA 08/03/18 17:59 IMPRESSION: Unremarkable CT Angiography of the Brain and Neck. Incidental note is made of intraparenchymal hemorrhage right parietal lobe. Normal variation at origin of right common carotid artery off distal portion brachycephalic artery. [facility] 8:[address] 08/04/18 06:00 IMPRESSION: Stable right parietal intraparenchymal hemorrhage with stable local edema and mass effect but no midline shift once again. No new intracranial hemorrhage appreciable in the interval. 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 Otherwise [facility], 08/04/2018 at 6:43 a.m.. EKG/Cardiology Studies: Cardiology / EKG Studies 08/03/18 17:41 ELECTROCARDIOGRAM Stat Comment: Reason For Exam: intracranial hemorrhage Critical Care Progress Note - Nutrition Nutrition: Nutrition Category Date Time Status Heart Healthy Diet [DIET] Diets 08/04/18 Lunch Active Attending/Attestation - Attestation I have personally seen and examined this patient.: Yes I have fully participated in the care of the patient.: Yes I have reviewed all pertinent clinical information: Yes Notes (Text): 08/04/18 16:[address] Alva note
--- NOTE | 2018-08-04 09:40 | CP.PCM.PN ---
Subjective - Date & Time of Evaluation Date of Evaluation: 08/04/18 Time of Evaluation: 09:39 - Subjective Subjective: Discussed case with Dr Vargas small R parietal hematoma no indication for evacuation Objective - Vital Signs/Intake and Output Vital Signs (last 24 hours): Temp Pulse Resp BP Pulse Ox 98.5 F 75 21 146/58 L 97 08/03/18 17:25 08/04/18 09:00 08/04/18 09:00 08/04/18 09:00 08/04/18 09:00 - Medications Medications: Current Medications Atorvastatin Calcium (Lipitor) 40 mg PO QOTHERDAY KEARA Nicardipine HCl (Cardene Iv Premix) 20 mg in 200 mls @ 50 mls/hr IV .Q4H PRN; Protocol PRN Reason: TITRATE PER MD ORDER - Labs Labs: 08/04/18 05:25 08/04/18 05:25 PT 13.4 SECONDS (9.4-12.5) H 08/03/18 17:50 INR 1.21 08/03/18 17:50 APTT 33.2 Seconds (26.9-38.3) 08/03/18 17:50
[2018-08-04] MEDS ORDERED: Sodium Chloride 0.9% 1,000 ML IV SCH (10:00)
--- NOTE | 2018-08-04 10:22 | CT ---
Date of service: 08/03/2018 PROCEDURE: CT Angiography of the Brain and Neck. HISTORY: intracranial hemorrhage COMPARISON: None available. TECHNIQUE: CT angiography of the head and neck was performed following intravenous contrast administration. Coronal and sagittal maximum intensity projection reformatted images were generated. Contrast Dose: Omnipaque 350, 148 cc Radiation dose: Total exam DLP = 581.94 mGy-cm. This CT exam was performed using one or more of the following dose reduction techniques: Automated exposure control, adjustment of the mA and/or kV according to patient size, and/or use of iterative reconstruction technique. FINDINGS: A 2 vessel aortic arch is identified with the right common carotid artery originating relatively distal off the brachiocephalic artery. INTERNAL CEREBRAL ARTERIES: Unremarkable. The skull base, petrous, cavernous and supraclinoid segments are bilaterally widely patent. ANTERIOR CEREBRAL ARTERIES: Unremarkable. A1 and A2 segments are widely patent. Smaller distal branches unremarkable, as visualized. MIDDLE CEREBRAL ARTERIES: Unremarkable. M1 and M2 segments are widely patent. Perisylvian branches grossly symmetric. POSTERIOR CIRCULATION: Basilar Artery: Unremarkable. Distal Vertebral Arteries: Unremarkable. Posterior Cerebral Arteries: Unremarkable. Posterior Inferior Cerebellar Arteries: Unremarkable. NECK CTA: Common Carotid arteries: The bilateral common carotid appear widely patent from their origins to their bifurcations with no significant stenosis appreciated. No evidence to suggest common carotid artery dissection. Internal Carotid arteries: No significant stenosis is appreciated throughout the cervical internal carotid artery segments bilaterally and there is no evidence of dissection either. External Carotid arteries: Appear unremarkable bilaterally. Vertebral arteries: The bilateral vertebral arteries appear normal in caliber from their origins to their distal cervical segments. No significant stenosis or definite pattern of dissection. ANEURYSM/ VASCULAR MALFORMATIONS: None. OTHER FINDINGS: Intraparenchymal hemorrhage right parietal lobe of the brain. IMPRESSION: Unremarkable CT Angiography of the Brain and Neck. Incidental note is made of intraparenchymal hemorrhage right parietal lobe. Normal variation at origin of right common carotid artery off distal portion brachycephalic artery. Concordant preliminary report from [facility], 08/03/2018, 8:51 p.m..
--- NOTE | 2018-08-04 11:08 | CP.PCM.PN ---
<Almaz Hayden - Last Filed: 08/04/18 11:28> Subjective - Date & Time of Evaluation Date of Evaluation: 08/04/18 Time of Evaluation: 11:05 - Subjective Subjective: INTERNAL MEDICINE PROGRESS NOTE FOR DR. JOSE Hayden PGY1 Pt seen and examined at bedside. No acute events overnight. Pt resting c omfortably. Pt denies any acute complaints, specifically headache, dizziness, vision changes, rhinorrhea, numbness, tingling, weakness, urinary/bowel incontinence. 12 point ROS otherwise negative Objective - Vital Signs/Intake and Output Vital Signs (last 24 hours): Temp Pulse Resp BP Pulse Ox 98.5 F 75 21 146/58 L 97 08/03/18 17:25 08/04/18 09:00 08/04/18 09:00 08/04/18 09:00 08/04/18 09:00 - Medications Medications: Current Medications Atorvastatin Calcium (Lipitor) 40 mg PO QOTHERDAY KEARA Nicardipine HCl (Cardene Iv Premix) 20 mg in 200 mls @ 50 mls/hr IV .Q4H PRN; Protocol PRN Reason: TITRATE PER MD ORDER Sodium Chloride (Sodium Chloride 0.9%) 1,000 mls @ 100 mls/hr IV .Q10H KEARA - Labs Labs: 08/04/18 05:25 08/04/18 05:25 PT 13.4 SECONDS (9.4-12.5) H 08/03/18 17:50 INR 1.21 08/03/18 17:50 APTT 33.2 Seconds (26.9-38.3) 08/03/18 17:50 - Constitutional Appears: Well, Non-toxic, No Acute Distress - Head Exam Head Exam: NORMAL INSPECTION, NORMOCEPHALIC - Eye Exam Eye Exam: EOMI, Normal appearance - ENT Exam ENT Exam: Mucous Membranes Moist, Normal Exam - Neck Exam Neck Exam: Normal Inspection. absent: Meningismus - Respiratory Exam Respiratory Exam: Clear to Ausculation Bilateral - Cardiovascular Exam Cardiovascular Exam: REGULAR RHYTHM, +S1, +S2 - GI/Abdominal Exam GI & Abdominal Exam: Soft. absent: Tenderness - Extremities Exam Extremities Exam: Normal Inspection. absent: Calf Tenderness - Back Exam Back Exam: NORMAL INSPECTION - Neurological Exam Neurological Exam: Alert, Awake, CN II-XII Intact, Oriented x3, Reflexes Normal. absent: Motor Sensory Deficit Neuro motor strength exam: Left Upper Extremity: 5, Right Upper Extremity: 5, Left Lower Extremity: 5, Right Lower Extremity: 5 - Psychiatric Exam Psychiatric exam: Normal Affect, Normal Mood - Skin Skin Exam: Dry, Intact, Warm Assessment and Plan - Assessment and Plan (Free Text) Assessment: 78 y o female with PMhx HTN, HLD, prior spontaneous intracranial hemorrhage of unknown etiology 15 y ago, R breast cancer s/p lumpectomy in remission x 17 years, who presented to the ED sent in by her PMD Dr. Renteria for abnormal Head CT results. Admitted for Intracranial Hemorrhage. Neurology and Neurosurgery consulted. Plan: Intracranial Hemorrhage Repeat CT this am reveals stable intraperenchymal hemorrhage w/ stable local edema and mass effect but no midline shift once again. No new intracranial hemorrhage appreciable in the interval. H/N CTA is unremarkable with incidental note of intraparenchymal hemorrhage. EKG on admission NSR at 63 bpm, no St-t wave changes appreciated No neurosurgical intervention per neurosurgery Echo pending Neuro checks q 1 h Seizure/fall precautions Elevate head of bed at 45 degrees NPO Speech/swallow eval pending Pt never received nicardipine drip Loaded w/ Keppra x1 in ED A1c pending HTN continue to to trend vitals, maintain systolic BP 140-160 continue home propranolol HLD continue home crestor R breast ca s/p lumpectomy Home med Raloxifene held on admission Dispo: Pending PT/OT/Speech/Swallow eval Case seen, examined and discussed with attending physician, Dr. Jose Hayden PGY1 <Sheila Garcia R - Last Filed: 08/05/18 08:35> Objective - Vital Signs/Intake and Output Vital Signs (last 24 hours): Temp Pulse Resp BP Pulse Ox 98.0 F 78 18 118/59 L 97 08/05/18 06:00 08/05/18 06:00 08/05/18 06:00 08/05/18 06:00 08/05/18 06:00 - Medications Medications: Current Medications Amlodipine Besylate (Norvasc) 5 mg PO DAILY KEARA Atorvastatin Calcium (Lipitor) 40 mg PO QOTHERDAY KEARA Nicardipine HCl (Cardene Iv Premix) 20 mg in 200 mls @ 50 mls/hr IV .Q4H PRN; Protocol PRN Reason: TITRATE PER MD ORDER Sodium Chloride (Sodium Chloride 0.9%) 1,000 mls @ 100 mls/hr IV .Q10H KEARA Last Admin: 08/04/18 11:00 Dose: Not Given Levetiracetam (Keppra) 500 mg PO BID KEARA Stop: 08/11/18 12:01 Last Admin: 08/04/18 18:19 Dose: 500 mg - Labs Labs: 08/05/18 07:30 08/05/18 07:30 PT 13.4 SECONDS (9.4-12.5) H 08/03/18 17:50 INR 1.21 08/03/18 17:50 APTT 33.2 Seconds (26.9-38.3) 08/03/18 17:50 Attending/Attestation - Attestation I have personally seen and examined this patient.: Yes I have fully participated in the care of the patient.: Yes I have reviewed all pertinent clinical information, including history, physical exam and plan: Yes Notes (Text): Patient seen and examined by me with resident at 8:25 AM in 08/04/18. Case including HPI, physical exam, and assessment and plan discussed with resident. Agree with above with following additions/corrections. Patient is a 78-year-old female past medical history significant for hypertension, hyperlipidemia, prior spontaneous intracranial hemorrhage, and right breast cancer status post lumpectomy who was sent to the emergency room by her primary care doctor for abnormal head CT results Patient states she is feeling ok. Patient denies any headaches today. Patient states she feels a little lightheaded and dizzy when she stands up. No change in vision. Patient denies any muscle weakness. She denies shortness of breath. No chest pain or palpitations. No fevers or chills. No nausea, vomiting, or abdominal pain. No dysuria or difficulty urinating. No diarrhea or constipation. Physical exam: General: Awake and alert sitting up in bed in no acute distress HEENT: Normocephalic, atraumatic. Extraocular muscles intact, pupils equal and reactive, no scleral icterus. Oropharynx is pink and moist. No pharyngeal eryth john or exudate apreciated. Neck is supple. Cardiovascular: Regular rhythm. Normal S1 and S2. No murmurs, rubs, or gallops appreciated Pulmonary: Normal respiratory effort. No rhonchi, rales, or wheezing appreciated. Gastrointestinal: Soft, nondistended. Nontender. Positive bowel sounds all 4 quadrants. No guarding. Musculoskeletal: Moves all extremities. No calf tenderness. No edema appreciate d Central nervous system: AAOx3, CN 2-12 grossly intact. 5/ 5 muscle strength all extremities. No aphasia. No facial droop. Dermatologic: Skin warm and dry. Assessment and plan: Patient is a 78-year-old female past medical history significant for hypertension, hyperlipidemia, prior spontaneous intracranial hemorrhage, and right breast cancer status post lumpectomy who was sent to the emergency room by her primary care doctor for abnormal head CT results 1. Right parietal lobe intracranial hemorrhage. CT head per radiologist showed stable right parietal intraparenchymal hemorrhage was stable local edema and mass effect but no midline shift, no new intracranial hemorrhage appreciable in the interval. Head and neck CTA per radiologist's showed unremarkable CT angiography of the brain and neck, incidental note is made of intraparenchymal hemorrhage right parietal lobe, normal variation at origin of right common carotid artery off distal portion of brachycephalic artery. No trauma. Brain MRI pending. Neurology following, recommendations appreciated. Neurosurgery following, recommendations appreciated. Per neurosurgery small right parietal hematoma, no indication for evacuation. 2-D echo pending. Speech and swallow eval pending. Continue neuro checks. PT/OT eval and treat. Continue Keppra. Continue Lipitor. 2. Essential hypertension. Home propanolol held for now. Periods of hypotension. Monitor blood pressure and add medications if needed. 3. Hyperlipidemia. Continue Lipitor 4. Right breast cancer status post lumpectomy. Patient to continue outpatient follow-up with with her oncologist and continue home medications upon discharge. 5. DVT prophylaxis. SCDs 6. Patient is a full code Case discussed in detail with the patient regarding current diagnosis and treatment plan. All questions answered.
--- NOTE | 2018-08-04 11:16 | CT ---
Date of service: 08/04/2018 PROCEDURE: CT HEAD WITHOUT CONTRAST. HISTORY: intracranial hemorrhage COMPARISON: Noncontrast head CT 08/03/2018. TECHNIQUE: Axial computed tomography images were obtained through the head/brain without intravenous contrast. Radiation dose: Total exam DLP = 844.19 mGy-cm. This CT exam was performed using one or more of the following dose reduction techniques: Automated exposure control, adjustment of the mA and/or kV according to patient size, and/or use of iterative reconstruction technique. FINDINGS: HEMORRHAGE: Stable right parietal intraparenchymal hemorrhage is identified measuring 3.2 x 1.9 x 4.0 cm (transverse by anteroposterior by superoinferior dimensions), not significantly changed in size in the interval. Local edema is stable and there remains no midline shift although the local sulci are effaced and the right lateral ventricle atrium is partially effaced once again as well. The basilar cisterns remain widely patent. No new intracranial hemorrhage is identified above or below the tentorium. BRAIN: Diffuse cerebral atrophy chronic microangiopathy are again identified. No suspicious extra-axial fluid collection is identified in the midline brain anatomy remains normal appearing. VENTRICLES: Unremarkable. No hydrocephalus. CALVARIUM: Unremarkable. PARANASAL SINUSES: Unremarkable as visualized. No significant inflammatory changes. MASTOID AIR CELLS: Unremarkable as visualized. No inflammatory changes. OTHER FINDINGS: None. IMPRESSION: Stable right parietal intraparenchymal hemorrhage with stable local edema and mass effect but no midline shift once again. No new intracranial hemorrhage appreciable in the interval. 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 Otherwise concordant comments are recognized in the [facility] report provided today, 08/04/2018 at 6:43 a.m..
--- NOTE | 2018-08-04 11:27 | CARD ---
APPROVED REPORT Date of service: 08/03/2018 EKG Measurement Heart [id number] <Conclusion> Sinus rhythm with Marked Sinus Arrythmia. Otherwise normal ECG
--- NOTE | 2018-08-04 13:06 | CON ---
DATE: 08/04/2018 HISTORY OF PRESENT ILLNESS: This is a 78-year-old lady with history of hypertension, hyperlipidemia, and prior CVA/intracranial hemorrhage of unknown etiology 10 years ago, who presented to ED after being sent by Dr. Renteria for abnormal head CT results. The patient states that she has been having the intermittent headaches for the past week and she is localizing this pain to the right side of her head. The pain is dull, pushing in nature. She stated that her symptoms climaxed around three days ago and she went to her PMD office with these symptoms. CT of the head yesterday showed intraparenchymal hemorrhage of the right parietal lobe with significant mass effect partially effacing the atrium of the right lateral ventricle. No significant midline shift, diffuse cerebral artery, chronic microangiopathy. At present time, the patient does not have any headache. She denies any vision change, tinnitus. No fever, no chills, no sweats, no nausea, no vomiting, no diarrhea, no constipation, no chest pain, no abdominal pain. PAST MEDICAL HISTORY: Hypertension, hyperlipidemia, prior spontaneous intracranial hemorrhage of unknown etiology, right breast cancer, status post lumpectomy in remission for 17 years. PAST SURGICAL HISTORY: Status post right lumpectomy in 1994 for right breast cancer. ALLERGIES: NKDA. MEDICATIONS AT HOME: Propranolol, raloxifene, Crestor. FAMILY HISTORY: Noncontributory. SOCIAL HISTORY: No alcohol or illicit drug abuse. No tobacco smoking. REVIEW OF SYSTEMS: Review of 12-organ system other than mentioned in history of present illness is negative. PHYSICAL EXAMINATION: VITAL SIGNS: Blood pressure 126/58, heart rate 68, oxygen saturation 94%, respiratory rate 16. ENT: Head and neck atraumatic. LUNGS: Clear to auscultation bilaterally. HEART: Regular rate and rhythm. S1, S2 normal. ABDOMEN: Soft, nontender, nondistended. MUSCULOSKELETAL EXAM: No C/C/E. NEURO: The patient moves all extremities spontaneously. 5/5 motor strength in both upper and lower extremities. No gross neuro deficits on cranial nerves II-XII. SKIN: Moist. PSYCH: The patient is alert, awake, and oriented x3. LABORATORY DATA: WBC 9.2, hemoglobin 11.3, platelet count 182. Sodium 140, potassium 4, chloride 110, carbon dioxide 23, BUN 20, creatinine 0.8, glucose 96. Troponin less than 0.01, glucose 127. INR 1.21. Head CT showed unchanged acute subacute intraparenchymal hematoma of the right parietal lobe measuring 3.3/3.7 cm in his largest anterior-posterior and transverse dimensions respectively, unchanged associated layering acute hemorrhage material, unchanged surrounded moderate brain edema, unchanged moderate impingement of the adjacent right lateral ventricle, unchanged 6.5 mm midline shift to the left side. CURRENT MEDICATIONS: Lipitor, Cardene drip, and Keppra. ASSESSMENT AND PLAN: This is a 78-year-old lady, who presented with intracranial hemorrhage without significant neurological deficit associated with some midline shift and mass effect. Neurosurgical consult was requested and Dr. Ruggiero evaluated the patient at bedside. His note is pending; however, he indicated that there is no neurosurgical intervention pending. At present time, we will proceed with blood pressure control with systolic pressure between 140 and 160. We are going to use nicardipine drip for this purpose. We will continue to target euvolemia, euglycemia, normothermia, and oxygen saturation more than 90%. We will continue with deep vein thrombosis and gastrointestinal prophylaxis.. Physical therapy, occupational therapy, speech and swallow eval. Official report of CTA of the head and neck is pending. We will continue with mechanical deep vein thrombosis and gastrointestinal prophylaxis. ccm time 40 min Manuel Alva MD DONNA
--- NOTE | 2018-08-04 13:48 | CP.PCM.CON ---
<Maurilio Hernandez - Last Filed: 08/04/18 14:02> History of Present Illness - History of Present Illness History of Present Illness: Neurology Consultation (Dr. Simon's Service) Consulting Physician: Dr. Torin Macdonald CC: ICH HPI: Mrs. Rivera is a 78 year old female with a past medical history significant for HTN, HLD, previous unprovoked intracranial hemorrhage (unknown etiology; 15 years ago; no neurosurgical intervention performed) and right breast cancer s/p lumpectomy (in remission for 17 years) who presents after being sent by her PMD for abnormal outpatient CT Head findings. Patient reported to her PMD for a headache that started three days [employer], which is when the worst of symptoms were experienced. She described the headache as a pounding headache on the top of her head. Patient was sent for a CT Head [place] [facility] and this showed an acute intraparenchymal hemorrhage within the right parietal lobe. Patient was notified of this by her PMD and she was instructed to come to the ED immediately. Patient currently reports that her headache has been resolved. She is resting comfortably without complaints and 12 point ROS unremarkable outside of what was mentioned above. PMH: As stated above PSH: Right Lumpectomy (1994) Family History: Denies any history of strokes, aneurysms or seizures Social History: Denies any tobacco, alcohol or illicit drug abuse Allergies: NKDA Home Medications: As per [facility] PMD: Dr. Renteria Review of Systems - Review of Systems Review of Systems: As stated in HPI, otherwise negative Past Patient History - Past Social History Smoking Status: Never Smoked - CARDIAC Hx Cardiac Disorders: No Hx Angina: No Hx Cardia Arrhythmia: No Hx Circulatory Problems: No Hx Congestive Heart Failure: No Hx Heart Murmur: No Hx Heart Transplant: No Hx Hypertension: No Hx Internal Defibrillator: Yes Hx Mitral Valve Prolapse: No Hx Pacemaker: No Hx Peripheral Edema: No Hx Peripheral Vascular Disease: No - PULMONARY Hx Respiratory Disorders: No Hx Asthma: No Hx Bronchitis: No Hx Chronic Obstructive Pulmonary Disease (COPD): No Hx Emphysema: No Hx Pneumonia: No Hx Respiratory Aspiration: No Hx Respiratory Tract Infection: No Hx Sleep Apnea: No Hx Tuberculosis: No - NEUROLOGICAL Hx Paralysis: No - HEMATOLOGICAL/ONCOLOGICAL Hx Blood Transfusions: No - MUSCULOSKELETAL/RHEUMATOLOGICAL Hx Falls: No - PSYCHIATRIC Hx Emotional Abuse: No Hx Physical Abuse: No Hx Substance Use: No - SURGICAL HISTORY Hx Cardiac Catheterization: No Hx Coronary Stent: No - ANESTHESIA Hx Anesthesia Reactions: No Hx Malignant Hyperthermia: No Meds Allergies/Adverse Reactions: Allergies Allergy/AdvReac Type Severity Reaction Status Date / Time No Known Allergies Allergy Verified 08/06/18 20:46 - Medications Medications: Current Medications Amlodipine Besylate (Norvasc) 5 mg PO DAILY [facility] Atorvastatin Calcium (Lipitor) 40 mg PO QOTHERDAY [facility] Nicardipine HCl (Cardene Iv Premix) 20 mg in 200 mls @ 50 mls/hr IV .Q4H PRN; Protocol PRN Reason: TITRATE PER MD ORDER Sodium Chloride (Sodium Chloride 0.9%) 1,000 mls @ 100 mls/hr IV .Q10H [facility] Last Admin: 08/04/18 11:00 Dose: Not Given Levetiracetam (Keppra) 500 mg PO BID [facility] Stop: 08/11/18 12:01 Last Admin: 08/04/18 12:24 Dose: 500 mg Physical Exam - Constitutional Appears: Non-toxic, No Acute Distress - Head Exam Head Exam: ATRAUMATIC, NORMOCEPHALIC - Eye Exam Eye Exam: EOMI, Normal appearance, PERRL. absent: Conjunctival injection, Nystagmus, Periorbital swelling, Periorbital tenderness, Scleral icterus Pupil Exam: NORMAL ACCOMODATION, PERRL. absent: Fixed, Irregular, Miosis, Mydriatic, Unequal - ENT Exam ENT Exam: Mucous Membranes Moist, Normal Exam - Neck Exam Neck exam: Positive for: Full Rom, Normal Inspection - Respiratory Exam Respiratory Exam: Clear to Auscultation Bilateral, NORMAL BREATHING PATTERN - Cardiovascular Exam Cardiovascular Exam: REGULAR RHYTHM - GI/Abdominal Exam GI & Abdominal Exam: Normal Bowel Sounds, Soft. absent: Tenderness - Neurological Exam Neurological exam: Alert, CN II-XII Intact, Normal Gait, Oriented x3, Reflexes Normal - Expanded Neurological Exam Expanded Patient oriented to: person, place, time Cranial nerves: EOM's Intact: Normal, Facial Palsey w/Forehead Movement: Normal, Facial Palsey w/o Forehead Movement: Normal, Facial Sensation: Normal, Gag Reflex: Normal, Nystagmus: Normal, Tongue Deviation: Normal Ataxia: No Cerebellar Function: Finger to Nose: Normal, Heel to Freeman: Normal, Romberg: Normal Upper motor neuron: Babinski Sign: Normal, Deniz Neglect: Normal, Pronator Drift: Abnormal Left, Sensory Extinction: Normal Sensory exam: Lower Extremity Light Touch: Normal, Upper Extremity Light Touch: Normal Neuro motor strength exam: Left Upper Extremity: 5, Right Upper Extremity: 5, Left Lower Extremity: 5, Right Lower Extremity: 5 Coma Scale Eye Opening: SPONTANEOUS Coma Scale Motor Response: OBEYS COMMANDS Coma Scale Verbal: Oriented Coma Scale Total: 15 - Psychiatric Exam Psychiatric exam: Normal Affect, Normal Mood - Skin Skin Exam: Dry, Intact, Normal Color, Warm Results - Vital Signs Recent Vital Signs: Last Vital Signs Temp 97.9 F 08/04/18 07:24 Pulse 80 08/04/18 12:00 Resp 20 08/04/18 12:00 BP 141/75 08/04/18 12:00 Pulse Ox 93 L 08/04/18 12:00 - Labs Result Diagrams: 08/04/18 05:25 08/04/18 05:25 Labs: Laboratory Results - last 24 hr 08/03/18 08/03/18 08/03/18 17:43 17:50 17:50 WBC 9.5 RBC 4.53 Hgb 12.6 Hct 38.5 MCV 85.0 MCH 27.8 MCHC 32.7 RDW 13.6 Plt Count 198 MPV 12.0 H Neut % (Auto) 69.4 H Lymph % (Auto) 20.0 L Rutherford % (Auto) 8.9 H Eos % (Auto) 1.3 L Baso % (Auto) 0.4 Lymph # (Auto) 1.9 Rutherford # (Auto) 0.9 H Eos # (Auto) 0.1 Baso # (Auto) 0.04 Absolute Neuts (auto) 6.61 H PT 13.4 H INR 1.21 APTT 33.2 Sodium Potassium Chloride Carbon Dioxide Anion Gap BUN Creatinine Est GFR ( Amer) Est GFR (Non-Af Amer) POC Glucose (mg/dL) 130 H Random Glucose Hemoglobin A1c Calcium Phosphorus Magnesium Total Bilirubin AST ALT Alkaline Phosphatase Troponin I Total Protein Albumin Globulin Albumin/Globulin Ratio Triglycerides Cholesterol LDL Cholesterol Direct HDL Cholesterol Blood Type Blood Type Confirm Antibody Screen BBK History Checked 08/03/18 08/03/18 08/03/18 17:50 17:50 22:55 WBC RBC Hgb Hct MCV MCH MCHC RDW Plt Count MPV Neut % (Auto) Lymph % (Auto) Rutherford % (Auto) Eos % (Auto) Baso % (Auto) Lymph # (Auto) Rutherford # (Auto) Eos # (Auto) Baso # (Auto) Absolute Neuts (auto) PT INR APTT Sodium 139 Potassium 3.9 Chloride 105 Carbon Dioxide 27 Anion Gap 11 BUN 21 Creatinine 0.9 Est GFR ( Amer) > 60 Est GFR (Non-Af Amer) > 60 POC Glucose (mg/dL) Random Glucose 127 H Hemoglobin A1c Calcium 9.8 Phosphorus Magnesium Total Bilirubin 0.9 AST 25 ALT 23 Alkaline Phosphatase 58 Troponin I Total Protein 8.3 Albumin 4.4 Globulin 3.9 Albumin/Globulin Ratio 1.1 Triglycerides Cholesterol LDL Cholesterol Direct HDL Cholesterol Blood Type O POSITIVE Blood Type Confirm O POSITIVE Antibody Screen Negative BBK History Checked No verified bt 08/04/18 08/04/18 08/04/18 05:25 05:25 05:25 WBC 9.2 RBC 4.18 Hgb 11.3 L Hct 35.4 L MCV 84.7 MCH 27.0 MCHC 31.9 RDW 13.6 Plt Count 182 MPV 12.1 H Neut % (Auto) 70.9 H Lymph % (Auto) 18.3 L Rutherford % (Auto) 7.9 H Eos % (Auto) 2.5 Baso % (Auto) 0.4 Lymph # (Auto) 1.7 Rutherford # (Auto) 0.7 H Eos # (Auto) 0.2 Baso # (Auto) 0.04 Absolute Neuts (auto) 6.54 H PT INR APTT Sodium 140 Potassium 4.0 Chloride 110 H Carbon Dioxide 23 Anion Gap 10 BUN 20 Creatinine 0.8 Est GFR ( Amer) > 60 Est GFR (Non-Af Amer) > 60 POC Glucose (mg/dL) Random Glucose 96 Hemoglobin A1c 5.9 Calcium 9.1 Phosphorus 3.9 Magnesium 2.2 Total Bilirubin 0.9 AST 21 ALT 22 Alkaline Phosphatase 55 Troponin I Total Protein 7.3 Albumin 3.8 Globulin 3.6 Albumin/Globulin Ratio 1.1 Triglycerides 84 Cholesterol 116 L LDL Cholesterol Direct 49 HDL Cholesterol 49 Blood Type Blood Type Confirm Antibody Screen BBK History Checked 08/04/18 05:25 WBC RBC Hgb Hct MCV MCH MCHC RDW Plt Count MPV Neut % (Auto) Lymph % (Auto) Rutherford % (Auto) Eos % (Auto) Baso % (Auto) Lymph # (Auto) Rutherford # (Auto) Eos # (Auto) Baso # (Auto) Absolute Neuts (auto) PT INR APTT Sodium Potassium Chloride Carbon Dioxide Anion Gap BUN Creatinine Est GFR ( Amer) Est GFR (Non-Af Amer) POC Glucose (mg/dL) Random Glucose Hemoglobin A1c Calcium Phosphorus Magnesium Total Bilirubin AST ALT Alkaline Phosphatase Troponin I < 0.01 Total Protein Albumin Globulin Albumin/Globulin Ratio Triglycerides Cholesterol LDL Cholesterol Direct HDL Cholesterol Blood Type Blood Type Confirm Antibody Screen BBK History Checked Assessment & Plan - Assessment and Plan (Free Text) Assessment: 78 year old female with a past medical history significant for HTN, HLD, previous unprovoked intracranial hemorrhage (unknown etiology; 15 years ago; no neurosurgical intervention performed) and right breast cancer s/p lumpectomy (in remission for 17 years) who presents after being sent by her PMD for abnormal outpatient CT Head findings including acute intraparenchymal hemorrhage within the right parietal lobe. Plan: -MRI Brain with/without contrast pending -Repeat CT Head showed no interval changes from previous study -CT Head showed an acute 3.0x4.0cm intraparenchymal hemorrhage within the right parietal lobe with significant mass effect partially effacing the atrium of the right lateral ventricle with no significant midline shift, diffuse cerebral atrophy, and chronic microangiopathy. -Start Keppra 500mg PO BID; Only for 7 days -No anticoagulation/antiplatelet medications at this time -Neurosurgery consulted and no neurosurgical interventions are indicated at this time -Maintain SBP between 120 and 150mmHg, normothermia, euglycemia and sodium concentrations within normal range -Further recommendations as per Dr. Simon Disposition: Patient will no longer require ICU level of care at this time. We will continue to follow with you. Patient seen and case discussed with attending, Dr. Simon. Maurilio Hernandez PGY2 - Date & Time Date: 08/04/18 Time: 13:43 <Connor Simon - Last Filed: 08/08/18 02:08> Results - Vital Signs Recent Vital Signs: Last Vital Signs Temp 98.0 F 08/06/18 14:00 Pulse 86 08/06/18 14:00 Resp 18 08/06/18 14:00 BP 128/61 08/06/18 14:00 Pulse Ox 96 08/06/18 14:00 - Labs Result Diagrams: 08/06/18 06:15 08/06/18 06:15 Attending/Attestation - Attestation I have personally seen and examined this patient.: Yes I have fully participated in the care of the patient.: Yes I have reviewed all pertinent clinical information: Yes Notes (Text): I agree with the assessment and plan. ICH appears to be cortical and may be due to amyloid or could be due to uncontrolled hypertension. Will proceed with work- up and management as outlined above.
[2018-08-04] MEDS ORDERED: Gadodiamide 287 MG/ML VIAL (15ML) IV ONE (20:25)
[2018-08-05 07:54] LABS: BASO # 0.03 K/mm3 (0.0-2.0); BASO % 0.4 % (0.0-3.0); EOS # 0.2 (0.0-0.7); EOS % 2.4 % (1.5-5.0); HEMOGLOBIN 13.1 g/dL (12.0-16.0); LYMPH # 1.7 (1.2-3.4); LYMPH % 20.1 % (22.0-35.0); MEAN CELL VOLUME 85.2 fl (80.0-105.0); MEAN CORPUSCULAR HEMOGLOBIN 27.7 pg (25.0-35.0); MEAN CORPUSCULAR HGB CONC 32.5 g/dl (31.0-37.0); MEAN PLATELET VOLUME 11.3 fl (7.0-11.0); MONO # 0.7 (0.1-0.6); RBC 4.73 10^6/uL (3.5-6.1); RED CELL DISTRIBUTION WIDTH 13.5 % (11.5-14.5); WHITE BLOOD COUNT 8.2 10^3/uL (4.5-11.0)
[2018-08-05 08:07] LABS: ALB/GLOB RATIO 1.1 (1.1-1.8); ALBUMIN 4.4 g/dL (3.0-4.8); ALT/SGPT 18 U/L (7-56); AST/SGOT 17 U/L (14-36); BLOOD UREA NITROGEN 20 mg/dL (7-21); CALCIUM 9.8 mg/dL (8.4-10.5); GFR NON-AFRICAN AMERICAN 54
--- NOTE | 2018-08-05 09:15 | CP.PCM.PN ---
<Maurilio Hernandez - Last Filed: 08/05/18 14:39> Subjective - Date & Time of Evaluation Date of Evaluation: 08/05/18 Time of Evaluation: 09:12 - Subjective Subjective: Neurology Progress Note: Patient seen and assessed at bedside. Patient noted to be hypotensive overnight with some reported dizziness. Patient denies any other complaints at this time and further 12 point ROS unremarkable. Objective - Vital Signs/Intake and Output Vital Signs (last 24 hours): Temp Pulse Resp BP Pulse Ox 98.0 F 78 18 118/59 L 97 08/05/18 06:00 08/05/18 06:00 08/05/18 06:00 08/05/18 06:00 08/05/18 06:00 - Medications Medications: Current Medications Amlodipine Besylate (Norvasc) 5 mg PO DAILY [facility] Atorvastatin Calcium (Lipitor) 40 mg PO QOTHERDAY [facility] Sodium Chloride (Sodium Chloride 0.9%) 1,000 mls @ 100 mls/hr IV .Q10H [facility] Last Admin: 08/04/18 11:00 Dose: Not Given Levetiracetam (Keppra) 500 mg PO BID [facility] Stop: 08/11/18 12:01 Last Admin: 08/04/18 18:19 Dose: 500 mg - Labs Labs: 08/05/18 07:30 08/05/18 07:30 PT 13.4 SECONDS (9.4-12.5) H 08/03/18 17:50 INR 1.21 08/03/18 17:50 APTT 33.2 Seconds (26.9-38.3) 08/03/18 17:50 - Additional Findings Additional findings: - Constitutional Appears: Non-toxic, No Acute Distress - Head Exam Head Exam: ATRAUMATIC, NORMOCEPHALIC - Eye Exam Eye Exam: EOMI, Normal appearance, PERRL. absent: Conjunctival injection, Nystagmus, Periorbital swelling, Periorbital tenderness, Scleral icterus Pupil Exam: NORMAL ACCOMODATION, PERRL. absent: Fixed, Irregular, Miosis, Mydriatic, Unequal - ENT Exam ENT Exam: Mucous Membranes Moist, Normal Exam - Neck Exam Neck exam: Positive for: Full Rom, Normal Inspection - Respiratory Exam Respiratory Exam: Clear to Auscultation Bilateral, NORMAL BREATHING PATTERN - Cardiovascular Exam Cardiovascular Exam: REGULAR RHYTHM - GI/Abdominal Exam GI & Abdominal Exam: Normal Bowel Sounds, Soft. absent: Tenderness - Neurological Exam Neurological exam: Alert, CN II-XII Intact, Normal Gait, Oriented x3, Reflexes Normal - Expanded Neurological Exam Expanded Patient oriented to: person, place, time Cranial nerves: EOM's Intact: Normal, Facial Palsey w/Forehead Movement: Normal, Facial Palsey w/o Forehead Movement: Normal, Facial Sensation: Normal, Gag Reflex: Normal, Nystagmus: Normal, Tongue Deviation: Normal Ataxia: No Cerebellar Function: Finger to Nose: Normal, Heel to Freeman: Normal, Romberg: Normal Upper motor neuron: Babinski Sign: Normal, Deniz Neglect: Normal, Pronator Drift: Abnormal Left, Sensory Extinction: Normal Sensory exam: Lower Extremity Light Touch: Normal, Upper Extremity Light Touch: Normal Neuro motor strength exam: Left Upper Extremity: 5, Right Upper Extremity: 5, Left Lower Extremity: 5, Right Lower Extremity: 5 Coma Scale Eye Opening: SPONTANEOUS Coma Scale Motor Response: OBEYS COMMANDS Coma Scale Verbal: Oriented Coma Scale Total: 15 - Psychiatric Exam Psychiatric exam: Normal Affect, Normal Mood - Skin Skin Exam: Dry, Intact, Normal Color, Warm Assessment and Plan - Assessment and Plan (Free Text) Assessment: 78 year old female with a past medical history significant for HTN, HLD, previous unprovoked intracranial hemorrhage (unknown etiology; 15 years ago; no neurosurgical intervention performed) and right breast cancer s/p lumpectomy (in remission for 17 years) who presents after being sent by her PMD for abnormal outpatient CT Head findings including acute intraparenchymal hemorrhage within the right parietal lobe. Plan: -MRI Brain with/without contrast showed stable appearing right posterior temporoparietal parenchymal hematoma with surrounding edema continuing to exert adjacent mass effect with overlying sulcal effacement and compression of the right atrium/right occipital horn, mild to moderate chronic periventricular white matter ischemic changes with multiple chronic lacunar infarcts scattered in the deep/subcortical white matter and to a lesser degree bilateral superior basal ganglia, mild to moderate atrophy and states that atypical hypertensive hemorrhage or possibly amyloid angiopathy must be ruled out -Repeat CT Head (08/04) showed no interval changes from previous study -CT Head (08/03) showed an acute 3.0x4.0cm intraparenchymal hemorrhage within the right parietal lobe with significant mass effect partially effacing the atrium of the right lateral ventricle with no significant midline shift, diffuse cerebral atrophy, and chronic microangiopathy -CTA Head/Neck (08/03) was unremarkable -Continue Keppra 500mg PO BID for a total of 7 days -Continue Lipitor -No anticoagulation/antiplatelet medications at this time -Neurosurgery consulted, no neurosurgical interventions are indicated at this time; All recommendations appreciated -Maintain SBP between 120 and 150mmHg, normothermia, euglycemia and sodium concentrations within normal range -Further recommendations as per Dr. Simon Disposition: Will obtain a repeat CT Head without contrast in the AM to monitor progression of the hemorrhage. Patient will need to be worked up for [facility] as an outpatient. Dr. Simon's contact information will be added to discharge paperwork and patient instructed to follow up with him two weeks after discharge. Patient also instructed that she should NOT take ASA or any NSAID's going forward. We will continue to follow this patient with you. Patient seen and case discussed with attending, Dr. Simon. Maurilio Hernandze PGY2 <Connor Simon - Last Filed: 08/08/18 01:43> Objective - Vital Signs/Intake and Output Vital Signs (last 24 hours): Temp Pulse Resp BP Pulse Ox 98.0 F 86 18 128/61 96 08/06/18 14:00 08/06/18 14:00 08/06/18 14:00 08/06/18 14:00 08/06/18 14:00 - Labs Labs: 08/06/18 06:15 08/06/18 06:15 PT 13.4 SECONDS (9.4-12.5) H 08/03/18 17:50 INR 1.21 08/03/18 17:50 APTT 33.2 Seconds (26.9-38.3) 08/03/18 17:50 Attending/Attestation - Attestation I have personally seen and examined this patient.: Yes I have fully participated in the care of the patient.: Yes I have reviewed all pertinent clinical information, including history, physical exam and plan: Yes Notes (Text): I agree with the assessment and plan. Likely amyloid angiopathy. Will follow as outpatient. Transfer to rehab if needed.
--- NOTE | 2018-08-05 09:23 | MRI ---
Date of service: 08/04/2018 PROCEDURE: MRI BRAIN WITH AND WITHOUT CONTRAST HISTORY: Hemorrhagic stroke COMPARISON: Comparison made with prior CT scan brain 08/04/2018. TECHNIQUE: Multiplanar, multisequence MR images of the brain were obtained with and without intravenous contrast enhancement. FINDINGS: HEMORRHAGE: Redemonstrated is a right posterior of temporoparietal parenchymal hemorrhage in various stages of evolution. There is a surrounding rim of prolonged T2 signal edema. No definitive underlying enhancing lesions are identified. Rule out atypical hypertensive hemorrhage or possibly sequela of amyloid angiopathy. Clinical the correlation recommended. The hematoma and attendant surrounding edema continue to exert adjacent mass effect with overlying sulcal effacement and compression of the right atrium/right occipital horn. No significant midline shift. DWI: No evidence of an acute or early subacute infarction seen on diffusion imaging.. BRAIN PARENCHYMA: Mild-moderate chronic periventricular white matter ischemic changes with multiple more discrete chronic appearing lacunar type infarcts scattered about the deep and subcortical white matter as well as to a lesser degree both superior basal ganglia. None of these changes exhibit restricted diffusion. Moderate- moderate the generalized volume loss. ENHANCEMENT: No abnormal intracranial enhancement. VENTRICLES: No obstructive hydrocephalus. CRANIUM: Unremarkable. ORBITS: Grossly unremarkable. PARANASAL SINUSES/MASTOIDS: Clear VASCULAR SYSTEM: Visualized major vascular flow voids at skull base patent. OTHER FINDINGS: None . IMPRESSION: Stable appearing right posterior temporoparietal parenchymal hematoma with surrounding edema. Rule out atypical hypertensive hemorrhage or possibly amyloid angiopathy. The hematoma and attendant surrounding edema continue to exert adjacent mass effect with overlying sulcal effacement and compression of the right atrium/right occipital horn. Mild to moderate chronic white matter and lesser basal nuclei ischemic changes. Mild moderate atrophy.
[2018-08-05 16:01] LABS: PH,URINE 5.5 (4.7-8.0); URINE BILIRUBIN NEGATIVE (NEGATIVE); URINE BLOOD SMALL (NEGATIVE); URINE GLUCOSE (UA) NEGATIVE (NEGATIVE); URINE LEUKOCYTE ESTERASE MODERATE Leu/uL (NEGATIVE); URINE PROTEIN NEGATIVE mg/dL (<30 mg/dL); URINE UROBILINOGEN 0.2 E.U./dL (<1 E.U./dL)
[2018-08-05 16:06] LABS: URINE APPEARANCE CLEAR (CLEAR); URINE COLOR YELLOW (YELLOW)
[2018-08-05 16:27] LABS: URINE AMORPHOUS SEDIMENT FEW /hpf; URINE BACTERIA LARGE /hpf; URINE RBC 15 - 20 /hpf (0-2); URINE WBC 25 - 30 /hpf (0-6)
--- NOTE | 2018-08-05 19:47 | CP.PCM.PN ---
<Almaz Hayden - Last Filed: 08/05/18 19:40> Subjective - Date & Time of Evaluation Date of Evaluation: 08/05/18 Time of Evaluation: 12:00 - Subjective Subjective: INTERNAL MEDICINE PROGRESS NOTE FOR DR. FREIDA Hayden PGY1 Pt seen and examined at bedside this am. No acute events overnight. Tolerating diet. Pt evaluated physical therapy session. Denies 12 point ROS Objective - Vital Signs/Intake and Output Vital Signs (last 24 hours): Temp Pulse Resp BP Pulse Ox 97.9 F 76 20 126/61 97 08/05/18 14:00 08/05/18 14:00 08/05/18 14:00 08/05/18 14:00 08/05/18 14:00 - Medications Medications: Current Medications Atorvastatin Calcium (Lipitor) 40 mg PO QOTHERDAY [facility] Last Admin: 08/05/18 10:50 Dose: 40 mg Sodium Chloride (Sodium Chloride 0.9%) 1,000 mls @ 100 mls/hr IV .Q10H [facility] Last Admin: 08/04/18 11:00 Dose: Not Given Levetiracetam (Keppra) 500 mg PO BID [facility] Stop: 08/11/18 12:01 Last Admin: 08/05/18 17:40 Dose: 500 mg - Labs Labs: 08/05/18 07:30 08/05/18 07:30 PT 13.4 SECONDS (9.4-12.5) H 08/03/18 17:50 INR 1.21 08/03/18 17:50 APTT 33.2 Seconds (26.9-38.3) 08/03/18 17:50 - Constitutional Appears: Well, Non-toxic, No Acute Distress - Head Exam Head Exam: NORMAL INSPECTION, NORMOCEPHALIC - Eye Exam Eye Exam: EOMI, Normal appearance - ENT Exam ENT Exam: Mucous Membranes Moist, Normal Exam - Neck Exam Neck Exam: Normal Inspection - Respiratory Exam Respiratory Exam: Clear to Ausculation Bilateral, NORMAL BREATHING PATTERN - Cardiovascular Exam Cardiovascular Exam: REGULAR RHYTHM - GI/Abdominal Exam GI & Abdominal Exam: Soft. absent: Tenderness - Extremities Exam Extremities Exam: Normal Inspection. absent: Calf Tenderness - Back Exam Back Exam: NORMAL INSPECTION - Neurological Exam Neurological Exam: Alert, Awake, Oriented x3 - Psychiatric Exam Psychiatric exam: Normal Affect, Normal Mood - Skin Skin Exam: Dry, Intact, Warm Assessment and Plan - Assessment and Plan (Free Text) Assessment: 78 y o female with PMhx HTN, HLD, prior spontaneous intracranial hemorrhage of unknown etiology 15 y ago, R breast cancer s/p lumpectomy in remission x 17 years, who presented to the ED sent in by her PMD Dr. Renteria for abnormal Head CT results. Admitted for Intracranial Hemorrhage. Neurology and Neurosurgery consulted. Plan: Intracranial Hemorrhage Repeat CT revealed stable intraperenchymal hemorrhage w/ stable local edema and mass effect but no midline shift once again. No new intracranial hemorrhage appreciable in the interval. H/N CTA is unremarkable with incidental note of intraparenchymal hemorrhage. EKG on admission NSR at 63 bpm, no St-t wave changes appreciated No neurosurgical intervention per neurosurgery continue keppra per neuro recs Neuro checks q 1 h Seizure/fall precautions Elevate head of bed at 45 degrees A1c pending Neurology consulted Pt to avoid ASA/NSAIDs HTN continue to to trend vitals, maintain systolic BP 140-160 hold SBP between 120-150mmHg Hold home antihypertensive HLD continue home crestor R breast ca s/p lumpectomy Home med Raloxifene held on admission Dispo: pending rehab placement Case seen, examined and discussed with attending physician, Dr. Freida Hayden PGY1 <Sheila Garcia R - Last Filed: 08/06/18 15:44> Objective - Vital Signs/Intake and Output Vital Signs (last 24 hours): Temp Pulse Resp BP Pulse Ox 98.0 F 86 18 128/61 96 08/06/18 14:00 08/06/18 14:00 08/06/18 14:00 08/06/18 14:00 08/06/18 14:00 Intake and Output: 08/06/18 08/06/18 06:59 18:59 Intake Total 660 Balance 660 - Medications Medications: Current Medications Atorvastatin Calcium (Lipitor) 40 mg PO QOTHERDAY [facility] Last Admin: 08/05/18 10:50 Dose: 40 mg Sodium Chloride (Sodium Chloride 0.9%) 1,000 mls @ 100 mls/hr IV .Q10H [facility] Last Admin: 08/04/18 11:00 Dose: Not Given Levetiracetam (Keppra) 500 mg PO BID [facility] Stop: 08/11/18 12:01 Last Admin: 08/06/18 10:43 Dose: 500 mg - Labs Labs: 08/06/18 06:15 08/06/18 06:15 PT 13.4 SECONDS (9.4-12.5) H 08/03/18 17:50 INR 1.21 08/03/18 17:50 APTT 33.2 Seconds (26.9-38.3) 08/03/18 17:50 Attending/Attestation - Attestation I have personally seen and examined this patient.: Yes I have fully participated in the care of the patient.: Yes I have reviewed all pertinent clinical information, including history, physical exam and plan: Yes Notes (Text): Patient seen and examined by me with resident at 11:10 AM in 08/05/18. Case including HPI, physical exam, and assessment and plan discussed with resident. Agree with above with following additions/corrections. Patient is a 78-year-old female past medical history significant for hypertension, hyperlipidemia, prior spontaneous intracranial hemorrhage, and right breast cancer status post lumpectomy who was sent to the emergency room by her primary care doctor for abnormal head CT results Patient states feels a little better today. States she had a right sided headache last night but that has since resolved. She denies feeling lightheaded or dizzy but states she is feeling weak. No change in vision. Patient denies any muscle weakness. She denies shortness of breath. No chest pain or palpitations. No fevers or chills. No nausea, vomiting, or abdominal pain. No dysuria or difficulty urinating. No diarrhea or constipation. Physical exam: General: Awake and alert sitting up in bed in no acute distress HEENT: Normocephalic, atraumatic. Extraocular muscles intact, pupils equal and reactive, no scleral icterus. Oropharynx is pink and moist. No pharyngeal erythema or exudate apreciated. Neck is supple. Cardiovascular: Regular rhythm. Normal S1 and S2. No murmurs, rubs, or gallops appreciated Pulmonary: Normal respiratory effort. No rhonchi, rales, or wheezing appreciated. Gastrointestinal: Soft, nondistended. Nontender. Positive bowel sounds all 4 quadrants. No guarding. Musculoskeletal: Moves all extremities. No calf tenderness. No edema appreciated Central nervous system: AAOx3, CN 2-12 grossly intact. 5/ 5 muscle strength all extremities. No aphasia. No facial droop. Dermatologic: Skin warm and dry. Assessment and plan: Patient is a 78-year-old female past medical history significant for hypertension, hyperlipidemia, prior spontaneous intracranial hemorrhage, and right breast cancer status post lumpectomy who was sent to the emergency room by her primary care doctor for abnormal head CT results 1. Right parietal lobe intracranial hemorrhage. PT/OT following, TCU recommended. Continue Keppra. Continue Lipitor. Brain MRI per radiologist showed stable appearing right posterior temporal parietal parenchymal hematoma with surrounding edema, hematoma and attendant surrounding edema continue to exert adjacent mass effect with overlying sulcal effacement and compression of the right atrium/right occipital horn; mild to moderate chronic white matter and posterior basal nuclei ischemic changes; mild/moderate atrophy. CT head per radiologist showed stable right parietal intraparenchymal hemorrhage was stable local edema and mass effect but no midline shift, no new intracranial hemorrhage appreciable in the interval. Head and neck CTA per radiologist's showed unremarkable CT angiography of the brain and neck, incidental note is made of intraparenchymal hemorrhage right parietal lobe, normal variation at origin of right common carotid artery off distal portion of brachycephalic artery. No trauma. Neurology following, recommendations appreciated. Neurosurgery following , recommendations appreciated. Per neurosurgery small right parietal hematoma, no indication for evacuation. 2-D echo recently done on 07/18/18 with hand roller. Speech and swallow following, recommendations appreciated. Continue neuro checks. 2. Essential hypertension. Home propanolol held for now. Normotensive now. Monitor blood pressure and add medications if needed. 3. Hyperlipidemia. Continue Lipitor 4. Right breast cancer status post lumpectomy. Patient to continue outpatient follow-up with with her oncologist and continue home medications upon discharge. 5. DVT prophylaxis. SCDs 6. Patient is a full code 7. Dispo. D/C planning to TCU. Case discussed in detail with the patient regarding current diagnosis and treatment plan. All questions answered.
[2018-08-05 21:41] VITALS: RESP 18; O2SAT 96
[2018-08-06 07:23] LABS: BASO # 0.03 K/mm3 (0.0-2.0); BASO % 0.3 % (0.0-3.0); EOS # 0.2 (0.0-0.7); EOS % 2.3 % (1.5-5.0); HEMOGLOBIN 13.2 g/dL (12.0-16.0); LYMPH # 2.1 (1.2-3.4); LYMPH % 22.1 % (22.0-35.0); MEAN CELL VOLUME 85.5 fl (80.0-105.0); MEAN CORPUSCULAR HEMOGLOBIN 27.3 pg (25.0-35.0); MONO # 0.8 (0.1-0.6); MONO % 8.1 % (1.0-6.0); RBC 4.83 10^6/uL (3.5-6.1); RED CELL DISTRIBUTION WIDTH 13.6 % (11.5-14.5); WHITE BLOOD COUNT 9.4 10^3/uL (4.5-11.0)
[2018-08-06 07:28] LABS: ALB/GLOB RATIO 1.1 (1.1-1.8); ALBUMIN 4.5 g/dL (3.0-4.8); ALT/SGPT 18 U/L (7-56); AST/SGOT 20 U/L (14-36); BLOOD UREA NITROGEN 22 mg/dL (7-21); CALCIUM 9.8 mg/dL (8.4-10.5); GFR NON-AFRICAN AMERICAN > 60
--- NOTE | 2018-08-06 14:04 | CT ---
Date of service: 08/06/2018 PROCEDURE: CT HEAD WITHOUT CONTRAST. HISTORY: [facility] COMPARISON: Comparison made with prior CT scan of the brain 08/04/2018. What is TECHNIQUE: Axial computed tomography images were obtained through the head/brain without intravenous contrast. Radiation dose: Total exam DLP = 867.97 mGy-cm. This CT exam was performed using one or more of the following dose reduction techniques: Automated exposure control, adjustment of the mA and/or kV according to patient size, and/or use of iterative reconstruction technique. FINDINGS: HEMORRHAGE: Redemonstrated is a elliptical shaped hemorrhage which is surrounded by a rim of low-attenuation edema located in the right posterior temporoparietal watershed zone.. The hemorrhage and attendant surrounding edema continue to exert surrounding mass effect with compression of overlying sulci and compressive effects on the right atrium/occipital horn. No evidence of a new hemorrhages BRAIN: Mild chronic periventricular white matter ischemic changes seen extending peripherally into the deep and to a lesser degree subcortical white matter both cerebral hemispheres. There may also be a few scattered chronic bilateral basal nuclei lacunar type infarcts. VENTRICLES: No evidence of hydrocephalus CALVARIUM: Unremarkable. PARANASAL SINUSES: Unremarkable as visualized. No significant inflammatory changes. MASTOID AIR CELLS: Unremarkable as visualized. No inflammatory changes. OTHER FINDINGS: None. IMPRESSION: Redemonstrated is a elliptical shaped hemorrhage which is surrounded by a rim of low-attenuation edema located in the right posterior temporoparietal watershed zone.. The hemorrhage and attendant surrounding edema continue to exert surrounding mass effect with compression of overlying sulci and compressive effects on the right atrium/occipital horn. No evidence of a new hemorrhages mild chronic periventricular white matter ischemic changes seen extending peripherally into the deep and to a lesser degree subcortical white matter both cerebral hemispheres. There may also be a few scattered chronic bilateral basal nuclei lacunar type infarcts.
[2018-08-06 14:55] VITALS: BP 128/61; PULSE 86; TEMP 98
--- NOTE | 2018-08-06 21:09 | CP.PCM.DIS ---
Provider - Provider Date of Admission: 08/03/18 19:36 Attending physician: Sheila Garcia DO Primary care physician: Juancarlos Renteria MD Consults: 08/03/18 21:01 Neurology Consult Routine Comment: Consulting Provider: Connor Simon Consulting Physician: Connor Simon Reason for Consult: [facility] 08/03/18 21:02 Physician Consult Routine Comment: Consulting Provider: Nehemiah Norman Consulting Physician: Nehemiah Norman Reason for Consult: [facility] 08/05/18 11:56 TCU [Evaluation for TRCU] Routine Comment: Physician Instructions: Reason For Exam: deconditioned Hospital Course - Lab Results Lab Results: Micro Results 08/04/18 02:05 [place] MRSA Culture (Admit) - Final MRSA NOT DETECTED Most Recent Lab Values WBC 9.4 10^3/uL (4.5-11.0) 08/06/18 06:15 RBC 4.83 10^6/uL (3.5-6.1) 08/06/18 06:15 Hgb 13.2 g/dL (12.0-16.0) 08/06/18 06:15 Hct 41.3 % (36.0-48.0) 08/06/18 06:15 MCV 85.5 fl (80.0-105.0) 08/06/18 06:15 MCH 27.3 pg (25.0-35.0) 08/06/18 06:15 MCHC 32.0 g/dl (31.0-37.0) 08/06/18 06:15 RDW 13.6 % (11.5-14.5) 08/06/18 06:15 Plt Count 228 10^3/uL (120.0-450.0) 08/06/18 06:15 MPV 12.0 fl (7.0-11.0) H 08/06/18 06:15 Neut % (Auto) 67.2 % (50.0-68.0) 08/06/18 06:15 Lymph % (Auto) 22.1 % (22.0-35.0) 08/06/18 06:15 [place] % (Auto) 8.1 % (1.0-6.0) H 08/06/18 06:15 Eos % (Auto) 2.3 % (1.5-5.0) 08/06/18 06:15 Baso % (Auto) 0.3 % (0.0-3.0) 08/06/18 06:15 Lymph # (Auto) 2.1 (1.2-3.4) 08/06/18 06:15 [place] # (Auto) 0.8 (0.1-0.6) H 08/06/18 06:15 Eos # (Auto) 0.2 (0.0-0.7) 08/06/18 06:15 Baso # (Auto) 0.03 K/mm3 (0.0-2.0) 08/06/18 06:15 Absolute Neuts (auto) 6.29 (1.4-6.5) 08/06/18 06:15 PT 13.4 SECONDS (9.4-12.5) H 08/03/18 17:50 INR 1.21 08/03/18 17:50 APTT 33.2 Seconds (26.9-38.3) 08/03/18 17:50 Sodium 140 mmol/L (132-148) 08/06/18 06:15 Potassium 4.4 mmol/L (3.6-5.0) 08/06/18 06:15 Chloride 106 mmol/L (98-107) 08/06/18 06:15 Carbon Dioxide 27 mmol/L (21-33) 08/06/18 06:15 Anion Gap 12 (10-20) 08/06/18 06:15 BUN 22 mg/dL (7-21) H 08/06/18 06:15 Creatinine 0.9 mg/dl (0.7-1.2) 08/06/18 06:15 Est GFR ( Amer) > 60 08/06/18 06:15 Est GFR (Non-Af Amer) > 60 08/06/18 06:15 POC Glucose (mg/dL) 130 mg/dL (65-110) H 08/03/18 17:43 Random Glucose 100 mg/dL (70-110) 08/06/18 06:15 Hemoglobin A1c 5.9 % (4.2-6.5) 08/04/18 05:25 Calcium 9.8 mg/dL (8.4-10.5) 08/06/18 06:15 Phosphorus 3.9 mg/dL (2.5-4.5) 08/04/18 05:25 Magnesium 2.2 mg/dL (1.7-2.2) 08/04/18 05:25 Total Bilirubin 1.0 mg/dL (0.2-1.3) 08/06/18 06:15 AST 20 U/L (14-36) 08/06/18 06:15 ALT 18 U/L (7-56) 08/06/18 06:15 Alkaline Phosphatase 63 U/L (38-126) 08/06/18 06:15 Troponin I < 0.01 ng/mL 08/04/18 05:25 Total Protein 8.6 g/dL (5.8-8.3) H 08/06/18 06:15 Albumin 4.5 g/dL (3.0-4.8) 08/06/18 06:15 Globulin 4.1 gm/dL 08/06/18 06:15 Albumin/Globulin Ratio 1.1 (1.1-1.8) 08/06/18 06:15 Triglycerides 84 mg/dL (35-160) 08/04/18 05:25 Cholesterol 116 mg/dL (130-200) L 08/04/18 05:25 LDL Cholesterol Direct 49 mg/dL (0-129) 08/04/18 05:25 HDL Cholesterol 49 mg/dL (29-60) 08/04/18 05:25 Urine Color Yellow (YELLOW) 08/05/18 15:00 Urine Appearance Clear (CLEAR) 08/05/18 15:00 Urine pH 5.5 (4.7-8.0) 08/05/18 15:00 Ur Specific [place] 1.020 (1.005-1.035) 08/05/18 15:00 Urine Protein Negative mg/dL (<30 mg/dL) 08/05/18 15:00 Urine Glucose (UA) Negative mg/dL (NEGATIVE) 08/05/18 15:00 Urine Ketones Negative mg/dL (NEGATIVE) 08/05/18 15:00 Urine Blood Small (NEGATIVE) H 08/05/18 15:00 Urine Nitrate Negative (NEGATIVE) 08/05/18 15:00 Urine Bilirubin Negative (NEGATIVE) 08/05/18 15:00 Urine Urobilinogen 0.2 E.U./dL (<1 E.U./dL) 08/05/18 15:00 Ur Leukocyte Esterase Moderate [place]/uL (NEGATIVE) H 08/05/18 15:00 Urine RBC 15 - 20 /hpf (0-2) H 08/05/18 15:00 Urine WBC 25 - 30 /hpf (0-6) H 08/05/18 15:00 Ur Epithelial Cells 4 - 5 /hpf (0-5) 08/05/18 15:00 Amorphous Sediment Few /hpf (NONE) 08/05/18 15:00 Urine Bacteria Large /hpf (NONE) 08/05/18 15:00 Urine Other Uyeast /hpf 08/05/18 15:00 Blood Type O POSITIVE 08/03/18 17:50 Blood Type Confirm O POSITIVE 08/03/18 22:55 Antibody Screen Negative 08/03/18 17:50 BBK History Checked No verified bt 08/03/18 17:50 Discharge Exam - Head Exam Head Exam: NORMAL INSPECTION, NORMOCEPHALIC Discharge Plan - Discharge Medications Prescriptions: Levetiracetam [Keppra] 500 mg PO BID #9 tablet - Follow Up Plan Condition: CRITICAL Disposition: TRANSF TO SNF Instructions: Subdural Hematoma Additional Instructions: You are being discharged from the main hospital to the [facility], called the Transitional Care Unit (TCU). Please follow up with your primary care doctor, Dr. Renteria, within 3-5 days of discharge from the TCU. Please follow up with the neurologist that saw you in the hospital, Dr. Simon, two weeks after discharge for outpatient follow up. Dr. Simon's contact information has been provided in this paperwork. Please note that you should NOT take Aspirin or any Non-Steroidal Anti- Inflammatory Drugs going forward. Please resume the medications that you were taking previously. Please discuss all your medications with your primary care doctor. Please note that you will being taking Keppra 500 mg twice a day; you will take an evening dose today, and will start taking it twice a day tomorrow for the four more days. Please participate in Physical Therapy while in the Transitional Care Unit. If your symptoms return, or you experience new symptoms, please return to the nearest ER Referrals: Juancarlos Renteria MD [Primary Care Provider] - Connor Simon MD [Staff Provider] -
== END 2018-08-06 20:00 | DRG 64 ==
LOC: ED 17:09 → ERH 19:36 → ICU 08-04 02:05 → 5RSO 08-04 22:35
PROVIDERS: ADMIT Internal Medicine; ATTEND Hospitalist
DX: I61.1 Nontraumatic intracerebral hemorrhage in hemisphere, cortical (principal); G93.6 Cerebral edema; I10 Essential (primary) hypertension; E78.5 Hyperlipidemia, unspecified; Z85.3 Personal history of malignant neoplasm of breast; Z86.73 Personal history of transient ischemic attack (TIA), and cerebral infarction without residual deficits

== ENCOUNTER 2018-08-06 20:44 | Inpatient (IN) | payer OTHER, MEDICARE ==
[2018-08-06 20:46] VITALS: BMI 24.7
[2018-08-06 23:00] VITALS: BP 148/81; PULSE 102; RESP 16; TEMP 98.2
[2018-08-06] MEDS ORDERED: Pneumococcal 23-Valent Vaccine IM ONE (23:00)
[2018-08-06] MEDS ORDERED: Influenza Vaccine 60 mcg/0.5 mL SYR (4YR UP) IM ONE (23:00)
[2018-08-07 08:10] LABS: BASO # 0.02 K/mm3 (0.0-2.0); BASO % 0.3 % (0.0-3.0); EOS # 0.2 (0.0-0.7); EOS % 2.7 % (1.5-5.0); HEMOGLOBIN 12.1 g/dL (12.0-16.0); LYMPH # 1.4 (1.2-3.4); LYMPH % 20.9 % (22.0-35.0); MEAN CELL VOLUME 85.1 fl (80.0-105.0); MEAN CORPUSCULAR HEMOGLOBIN 26.9 pg (25.0-35.0); MEAN CORPUSCULAR HGB CONC 31.7 g/dl (31.0-37.0); MONO # 0.6 (0.1-0.6); MONO % 8.6 % (1.0-6.0); RBC 4.49 10^6/uL (3.5-6.1); RED CELL DISTRIBUTION WIDTH 13.6 % (11.5-14.5)
[2018-08-07 08:20] LABS: WHITE BLOOD COUNT 6.6 10^3/uL (4.5-11.0)
[2018-08-07 08:44] LABS: ALB/GLOB RATIO 1.1 (1.1-1.8); ALT/SGPT 14 U/L (7-56); AST/SGOT 20 U/L (14-36); BLOOD UREA NITROGEN 21 mg/dL (7-21); CALCIUM 9.4 mg/dL (8.4-10.5); GFR NON-AFRICAN AMERICAN > 60
--- NOTE | 2018-08-07 13:50 | CP.PCM.HP ---
Past Patient History - Past Social History Smoking Status: Never Smoked - CARDIAC Hx Cardiac Disorders: Yes Hx Hypercholesterolemia: Yes Hx Hypertension: Yes - PULMONARY Hx Respiratory Disorders: No Hx Asthma: No Hx Bronchitis: No Hx Chronic Obstructive Pulmonary Disease (COPD): No Hx Emphysema: No Hx Pneumonia: No Hx Respiratory Aspiration: No Hx Respiratory Tract Infection: No Hx Sleep Apnea: No Hx Tuberculosis: No - NEUROLOGICAL Hx Seizures: Yes - HEMATOLOGICAL/ONCOLOGICAL Hx Cancer: Yes Hx Unexplained Bleeding: Yes - MUSCULOSKELETAL/RHEUMATOLOGICAL Hx Falls: No - GASTROINTESTINAL Hx Gastrointestinal Disorders: No - GENITOURINARY/GYNECOLOGICAL Hx Genitourinary Disorders: No Hx Reproductive Disorders: No - PSYCHIATRIC Hx Emotional Abuse: No Hx Physical Abuse: No Hx Substance Use: No - SURGICAL HISTORY Hx Surgeries: Yes - ANESTHESIA Hx Anesthesia Reactions: No Hx Malignant Hyperthermia: No Meds Allergies/Adverse Reactions: Allergies Allergy/AdvReac Type Severity Reaction Status Date / Time No Known Allergies Allergy Verified 08/06/18 20:46 Results - Vital Signs Recent Vital Signs: Last Vital Signs Temp 98.2 F 08/06/18 22:40 Pulse 102 H 08/06/18 22:40 Resp 16 08/06/18 22:40 BP 148/81 08/06/18 22:40 Pulse Ox - Labs Result Diagrams: 08/07/18 07:00 08/07/18 07:00 Labs: Laboratory Results - last 24 hr 08/07/18 08/07/18 07:00 07:00 WBC 6.6 D RBC 4.49 Hgb 12.1 Hct 38.2 MCV 85.1 MCH 26.9 MCHC 31.7 RDW 13.6 Plt Count 202 MPV 12.0 H Neut % (Auto) 67.5 Lymph % (Auto) 20.9 L [place] % (Auto) 8.6 H Eos % (Auto) 2.7 Baso % (Auto) 0.3 Lymph # (Auto) 1.4 [place] # (Auto) 0.6 Eos # (Auto) 0.2 Baso # (Auto) 0.02 Absolute Neuts (auto) 4.48 Sodium 139 Potassium 4.2 Chloride 108 H Carbon Dioxide 25 Anion Gap 11 BUN 21 Creatinine 0.8 Est GFR ( Amer) > 60 Est GFR (Non-Af Amer) > 60 Random Glucose 97 Calcium 9.4 Total Bilirubin 0.7 AST 20 ALT 14 Alkaline Phosphatase 60 Total Protein 7.8 Albumin 4.0 Globulin 3.7 Albumin/Globulin Ratio 1.1
--- NOTE | 2018-08-07 15:55 | CP.PCM.DIS ---
Provider - Provider Date of Admission: 08/06/18 20:44 Attending physician: Sheila Garcia DO Primary care physician: Juancarlos Renteria MD Consults: 08/07/18 08:00 Physician Consult Routine Comment: Consulting Provider: Nehemiah Norman Consulting Physician: Nehemiah Norman Reason for Consult: [facility] Physician Consult Routine Comment: Consulting Provider: Connor Simon Consulting Physician: Connor Simon Reason for Consult: [facility] Hospital Course - Lab Results Lab Results: Most Recent Lab Values WBC 6.6 10^3/uL (4.5-11.0) D 08/07/18 07:00 RBC 4.49 10^6/uL (3.5-6.1) 08/07/18 07:00 Hgb 12.1 g/dL (12.0-16.0) 08/07/18 07:00 Hct 38.2 % (36.0-48.0) 08/07/18 07:00 MCV 85.1 fl (80.0-105.0) 08/07/18 07:00 MCH 26.9 pg (25.0-35.0) 08/07/18 07:00 MCHC 31.7 g/dl (31.0-37.0) 08/07/18 07:00 RDW 13.6 % (11.5-14.5) 08/07/18 07:00 Plt Count 202 10^3/uL (120.0-450.0) 08/07/18 07:00 MPV 12.0 fl (7.0-11.0) H 08/07/18 07:00 Neut % (Auto) 67.5 % (50.0-68.0) 08/07/18 07:00 Lymph % (Auto) 20.9 % (22.0-35.0) L 08/07/18 07:00 [place] % (Auto) 8.6 % (1.0-6.0) H 08/07/18 07:00 Eos % (Auto) 2.7 % (1.5-5.0) 08/07/18 07:00 Baso % (Auto) 0.3 % (0.0-3.0) 08/07/18 07:00 Lymph # (Auto) 1.4 (1.2-3.4) 08/07/18 07:00 [place] # (Auto) 0.6 (0.1-0.6) 08/07/18 07:00 Eos # (Auto) 0.2 (0.0-0.7) 08/07/18 07:00 Baso # (Auto) 0.02 K/mm3 (0.0-2.0) 08/07/18 07:00 Absolute Neuts (auto) 4.48 (1.4-6.5) 08/07/18 07:00 Sodium 139 mmol/L (132-148) 08/07/18 07:00 Potassium 4.2 mmol/L (3.6-5.0) 08/07/18 07:00 Chloride 108 mmol/L (98-107) H 08/07/18 07:00 Carbon Dioxide 25 mmol/L (21-33) 08/07/18 07:00 Anion Gap 11 (10-20) 08/07/18 07:00 BUN 21 mg/dL (7-21) 08/07/18 07:00 Creatinine 0.8 mg/dl (0.7-1.2) 08/07/18 07:00 Est GFR ( Amer) > 60 08/07/18 07:00 Est GFR (Non-Af Amer) > 60 08/07/18 07:00 Random Glucose 97 mg/dL (70-110) 08/07/18 07:00 Calcium 9.4 mg/dL (8.4-10.5) 08/07/18 07:00 Total Bilirubin 0.7 mg/dL (0.2-1.3) 08/07/18 07:00 AST 20 U/L (14-36) 08/07/18 07:00 ALT 14 U/L (7-56) 08/07/18 07:00 Alkaline Phosphatase 60 U/L (38-126) 08/07/18 07:00 Total Protein 7.8 g/dL (5.8-8.3) 08/07/18 07:00 Albumin 4.0 g/dL (3.0-4.8) 08/07/18 07:00 Globulin 3.7 gm/dL 08/07/18 07:00 Albumin/Globulin Ratio 1.1 (1.1-1.8) 08/07/18 07:00 Discharge Plan - Discharge Medications Prescriptions: Levetiracetam [Keppra] 500 mg PO BID 3 Days #7 tablet - Follow Up Plan Condition: GOOD Disposition: HOME/ ROUTINE Additional Instructions: You are being discharged from the Transitional Care Unit (TCU) at [facility] to home. Please follow up with your primary care doctor, Dr. Renteria, within 3-5 days of discharge from the TCU. Please follow up with the neurologist that saw you in the hospital, Dr. Simon, two weeks after discharge for outpatient follow up. Dr. Simon's contact information has been provided in this paperwork. Please note that you should NOT take Aspirin or any Non-Steroidal Anti- Inflammatory Drugs going forward. Please resume the medications that you were taking previously. Please discuss all your medications with your primary care doctor. Please note that you will being taking Keppra 500 mg twice a day; you will take an evening dose today, and will start taking it twice a day tomorrow for the three more days. Please participate in Physical Therapy while in the Transitional Care Unit. If your symptoms return, or you experience new symptoms, please return to the nearest ER Referrals: Juancarlos Renteria MD [Primary Care Provider] - Connor Simon MD [Staff Provider] -
== END 2018-08-07 17:05 | disposition home or self-care (01) | DRG 66 ==
LOC: TRCU 20:44
PROVIDERS: ADMIT Hospitalist; ATTEND Hospitalist
DX: I61.1 Nontraumatic intracerebral hemorrhage in hemisphere, cortical (principal); E78.00 Pure hypercholesterolemia, unspecified; I10 Essential (primary) hypertension; Z85.3 Personal history of malignant neoplasm of breast; Z86.73 Personal history of transient ischemic attack (TIA), and cerebral infarction without residual deficits; Z53.8 Procedure and treatment not carried out for other reasons

== ENCOUNTER 2018-08-19 14:22 | Inpatient (IN) | payer MEDICARE ==
[2018-08-19 14:22] VITALS: BMI 24.7
--- NOTE | 2018-08-19 15:23 | ED PDOC ---
Arrival/HPI - General Time Seen by Provider: 08/19/18 14:57 Historian: Patient - History of Present Illness Narrative History of Present Illness (Text): 08/19/18 15:18 A 78 year old female, whose past medical history includes HTN, HLD, prior spontaneous intracranial hemorrhage of unknown etiology 15 y ago, R breast cancer s/p lumpectomy in remission x 17 years, presents to the emergency department with a complaint of generalized weakness. The patient notes that her symptoms began today with associated dizziness, nausea and mild headache. She reports that she had a hemorrhage 2 weeks ago. The patient's neighbor notes that the patient seemed weak today. The neighbor checked the patient's blood pressure and noted that it was low. The patient currently complains of weakness. She denies trauma/ fall/ injury, fevers, chills, chest pain, shortness of breath, dyspnea on exertion, cough, abdominal pain, vomiting, diarrhea, back pain, neck pain, urinary/bowel changes, or any other complaint. PMD: Dr. Renteria Shelving Supervisor: Dr. Cr Neurologist: Dr. Simon Time/Duration: Other (Today) Symptom Onset: Sudden Symptom Course: Intermittent Activities at Onset: Rest, Light Context: Home Past Medical History - Provider Review Nursing Documentation Reviewed: Yes - Cardiac Hx Cardiac Disorders: Yes Hx Hypertension: Yes - Pulmonary Hx Respiratory Disorders: No Hx Asthma: No Hx Bronchitis: No Hx Chronic Obstructive Pulmonary Disease (COPD): No Hx Emphysema: No Hx Pneumonia: No Hx Respiratory Aspiration: No Hx Respiratory Tract Infection: No Hx Sleep Apnea: No Hx Tuberculosis: No - Neurological Hx Seizures: Yes - Hematological/Oncological Hx Cancer: Yes Hx Unexplained Bleeding: Yes - Musculoskeletal/Rheumatological Hx Falls: No - Gastrointestinal Hx Gastrointestinal Disorders: No - Genitourinary/Gynecological Hx Genitourinary Disorders: No Hx Reproductive Disorders: No - Psychiatric Hx Emotional Abuse: No Hx Physical Abuse: No Hx Substance Use: No - Surgical History Hx Cardiac Catheterization: No Hx Coronary Stent: No - Anesthesia Hx Anesthesia Reactions: No Hx Malignant Hyperthermia: No - Suicidal Assessment Feels Threatened In Home Enviroment: No Family/Social History - Physician Review Nursing Documentation Reviewed: Yes Smoking Status: Never Smoked Hx Alcohol Use: No Hx Substance Use: No Allergies/Home Meds Allergies/Adverse Reactions: Allergies No Known Allergies Allergy (Verified 08/06/18 20:46) Home Medications: Home Meds Medication Instructions Recorded Confirmed Cholecalciferol (Vitamin D3) 2,000 units PO DAILY 12/23/17 08/06/18 [Vitamin D3] Raloxifene [Evista] 60 mg PO DAILY 12/23/17 08/06/18 Rosuvastatin Calcium [Crestor] 10 mg PO QOTHERDAY 12/23/17 08/06/18 Coake-9-Redb Ethyl Esters [OMEGA 3] 500 mg PO DAILY 07/20/18 08/06/18 Review of Systems - Physician Review All systems were reviewed & negative as marked: Yes - Review of Systems Constitutional: Other (Generalized weakness). absent: Fevers Respiratory: absent: SOB, Cough Cardiovascular: absent: Chest Pain, BEE Gastrointestinal: Nausea. absent: Abdominal Pain, Stool Changes, Diarrhea, Vomiting Genitourinary Female: absent: Urine Output Changes Musculoskeletal: absent: Back Pain, Neck Pain Neurological: Headache, Dizziness Physical Exam Vital Signs Reviewed: Yes Vital Signs Pulse Resp BP Pulse Ox 08/19/18 15:01 76 18 131/58 L 99 Temperature: Afebrile Blood Pressure: Hypotensive Pulse: Regular Respiratory Rate: Normal Appearance: Positive for: Well-Appearing, Non-Toxic, Comfortable Pain Distress: None Mental Status: Positive for: Alert and Oriented X 3 Finger Stick Blood Glucose: 114 - Systems Exam Head: Present: Atraumatic, Normocephalic Pupils: Present: PERRL Extroacular Muscles: Present: EOMI Conjunctiva: Present: Normal Mouth: Present: Moist Mucous Membranes Neck: Present: Normal Range of Motion Respiratory/Chest: Present: Decreased Breath Sounds (Bilaterally. ) Cardiovascular: Present: Regular Rate and Rhythm, Normal S1, S2. No: Murmurs, Rub, Gallop Abdomen: No: Tenderness, Distention, Peritoneal Signs Back: Present: Normal Inspection Upper Extremity: Present: Neurovascularly Intact (3/5 strength motor senior coldfusion developer right upper extremity. 5/5 strength senior coldfusion developer left upper extremity. ). No: Cyanosis, Edema Lower Extremity: Present: Neurovascularly Intact (5/5 strength bilaterally. ). No: Edema Neurological: Present: GCS=15, CN II-XII Intact, Speech Normal, Normal Sensory Function, Other (Able to respond to verbal commands. ) Skin: Present: Warm, Dry, Normal Color. No: Rashes Psychiatric: Present: Alert, Oriented x 3, Normal Insight, Normal Concentration Medical Decision Making ED Course and Treatment: 08/19/18 15:28 Impression: A 78 year old female presents to the emergency department with a complaint of ge neralized weakness today with associated headache, dizziness, and nausea. Differential Diagnosis included but are not limited to: Plan: -- Head CT -- Chest X-ray -- Urinalysis -- Labs --Blood culture --Urine Culture --Rocephin -- Reassess and disposition Prior Visits: Notes and results from previous visits were reviewed. 08/03/18 the patient was seen in the emergency department with a complaint of intermittent headache for 1 week, worsening 3 nights prior to emergency department visit. Patient was hospitalized for intracranial hemorrhage. Progress Notes: 08/19/18 17:15 Labs reviewed with leukocytosis of 12 noted and UA positive for nitrites and esterases. Rocephin ordered. Call placed to Dr. Colin(medical service) 08/19/18 17:[address] Mendes who accepts the patient onto her service. - Lab Interpretations I have reviewed the lab results: Yes - RAD Interpretation Narrative RAD Interpretations (Text): 08/19/18 17:55 Procedure: Head CT Dictator: Franklin Green MD Impression: Previously noted hematoma within the right posterior a temporoparietal watershed zone has diminished in size and attenuation. Redemonstrated is a relatively wide rim of low-attenuation vasogenic white matter edema surrounding the hematoma. Hematoma and its attendant surrounding edema exert persistent considerable mass effect with overlying sulcal enlargement effacement as well as compression of the right occipital horn and posterior body of the right lateral ventricle.. Mild chronic periventricular white matter ischemic changes are seen extending peripherally into the deep white matter both cerebral hemispheres. In addition, there also appear to be scattered small chronic appearing subcortical white matter infarcts as well.. The there also appear to be a few scattered chronic bilateral basal nuclei lacunar type infarcts. 08/19/18 16:46 Procedure: Chest X-ray Dictator: Marlene Vu MD Impression: Small size right lung and elevation of the right hemidiaphragm noted. Radiology Orders: 08/19/18 15:01 CHEST PORTABLE [RAD] Stat Assistant Store Manager Operations: Radiologist - EKG Interpretation Interpreted by ED Physician: Yes Type: 12 lead EKG - Scribe Statement The provider has reviewed the documentation as recorded by the Scribe Zehra Hannon Provider Gaetano Attestation: All medical record entries made by the Gaetano were at my direction and personally dictated by me. I have reviewed the chart and agree that the record accurately reflects my personal performance of the history, physical exam, medical decision making, and the department course for this patient. I have also personally directed, reviewed, and agree with the discharge instructions and disposition. Disposition/Present on Arrival - Present on Arrival Any Indicators Present on Arrival: No History of DVT/PE: No History of Uncontrolled Diabetes: No Urinary Catheter: No History Surgical Site Infection Following: None - Disposition Have Diagnosis and Disposition been Completed?: Yes Diagnosis: UTI (urinary tract infection) Disposition: HOSPITALIZED Disposition Time: 17:34 Patient Plan: Admission Patient Problems: Current Active Problems Problem Status Onset UTI (urinary tract infection) Acute Condition: FAIR
[2018-08-19 15:53] LABS: VENOUS BLOOD GAS BASE EXCESS 5.2 mmol/L (0.0-2.0); VENOUS BLOOD GAS PO2 27 mm/Hg (30-55); VENOUS BLOOD PH 7.39 (7.32-7.43)
[2018-08-19 16:13] LABS: BASO # 0.02 K/mm3 (0.0-2.0); BASO % 0.2 % (0.0-3.0); EOS # 0.1 (0.0-0.7); EOS % 0.7 % (1.5-5.0); HEMOGLOBIN 13.2 g/dL (12.0-16.0); LYMPH # 1.2 (1.2-3.4); LYMPH % 9.6 % (22.0-35.0); MEAN CELL VOLUME 84.9 fl (80.0-105.0); MEAN CORPUSCULAR HEMOGLOBIN 27.6 pg (25.0-35.0); MEAN CORPUSCULAR HGB CONC 32.5 g/dl (31.0-37.0); MEAN PLATELET VOLUME 11.8 fl (7.0-11.0); MONO # 0.3 (0.1-0.6); MONO % 2.8 % (1.0-6.0); RBC 4.78 10^6/uL (3.5-6.1); RED CELL DISTRIBUTION WIDTH 13.3 % (11.5-14.5)
[2018-08-19 16:14] LABS: INR 1.14; PARTIAL THROMBOPLASTIN TIME 29.3 Seconds (26.9-38.3); PROTHROMBIN TIME 12.6 SECONDS (9.4-12.5)
[2018-08-19 16:30] LABS: B-TYPE NATRIURETIC PEPTIDE 169 pg/mL (0-450); TROPONIN I < 0.01 ng/mL
[2018-08-19 16:32] LABS: ALB/GLOB RATIO 1.2 (1.1-1.8); ALBUMIN 4.5 g/dL (3.0-4.8); ALT/SGPT 9 U/L (7-56); AST/SGOT 25 U/L (14-36); BLOOD UREA NITROGEN 22 mg/dL (7-21); CALCIUM 9.9 mg/dL (8.4-10.5); GFR NON-AFRICAN AMERICAN > 60
[2018-08-19 16:44] LABS: URINE BILIRUBIN NEGATIVE (NEGATIVE); URINE BLOOD SMALL (NEGATIVE); URINE GLUCOSE (UA) NEGATIVE (NEGATIVE); URINE LEUKOCYTE ESTERASE MODERATE Leu/uL (NEGATIVE); URINE PROTEIN NEGATIVE mg/dL (<30 mg/dL); URINE UROBILINOGEN 0.2 E.U./dL (<1 E.U./dL)
[2018-08-19 16:46] LABS: URINE APPEARANCE CLEAR (CLEAR); URINE COLOR YELLOW (YELLOW)
--- NOTE | 2018-08-19 16:49 | RAD ---
Date of service: 08/19/2018 HISTORY: sob COMPARISON: No prior. FINDINGS: LUNGS: Elevation of the right hemidiaphragm is noted. PLEURA: Possible blunting of the right costophrenic angle. CARDIOVASCULAR: No aortic atherosclerotic calcification present. Normal cardiac size. No pulmonary vascular congestion. OSSEOUS STRUCTURES: No significant abnormalities. VISUALIZED UPPER ABDOMEN: Normal. OTHER FINDINGS: None. IMPRESSION: Small size right lung and elevation of the right hemidiaphragm noted.
[2018-08-19 17:01] LABS: URINE BACTERIA MOD /hpf; URINE WBC 20 - 25 /hpf (0-6)
[2018-08-19] MEDS ORDERED: cefTRIAXone 1 gm 1 GM/100 ML BAG IVPB STA (17:13)
--- NOTE | 2018-08-19 17:59 | CT ---
Date of service: 08/19/2018 PROCEDURE: CT HEAD WITHOUT CONTRAST. HISTORY: Headache w/h/o intracranial bleeding COMPARISON: Comparison made with prior CT scan brain 08/06/2018. TECHNIQUE: Axial computed tomography images were obtained through the head/brain without intravenous contrast. Radiation dose: Total exam DLP = 857.59 mGy-cm. This CT exam was performed using one or more of the following dose reduction techniques: Automated exposure control, adjustment of the mA and/or kV according to patient size, and/or use of iterative reconstruction technique. FINDINGS: HEMORRHAGE: Previously noted hematoma within the right posterior a temporoparietal watershed zone has diminished in size and attenuation. Redemonstrated is a relatively wide rim of low-attenuation vasogenic white matter edema surrounding the hematoma. Hematoma and its attendant surrounding edema exert persistent considerable mass effect with overlying sulcal enlargement effacement as well as compression of the right occipital horn and posterior body of the right lateral ventricle. BRAIN: Mild chronic periventricular white matter ischemic changes are seen extending peripherally into the deep white matter both cerebral hemispheres. In addition, there also appear to be scattered small chronic appearing subcortical white matter infarcts as well.. The there also appear to be a few scattered chronic bilateral basal nuclei lacunar type infarcts. Mild age-appropriate volume loss. VENTRICLES: No obstructive hydrocephalus. CALVARIUM: Calvarium intact. Mild hyperostosis frontalis interna again noted. PARANASAL SINUSES: Unremarkable as visualized. No significant inflammatory changes. MASTOID AIR CELLS: Unremarkable as visualized. No inflammatory changes. OTHER FINDINGS: None. IMPRESSION: Previously noted hematoma within the right posterior a temporoparietal watershed zone has diminished in size and attenuation. Redemonstrated is a relatively wide rim of low-attenuation vasogenic white matter edema surrounding the hematoma. Hematoma and its attendant surrounding edema exert persistent considerable mass effect with overlying sulcal enlargement effacement as well as compression of the right occipital horn and posterior body of the right lateral ventricle.. Mild chronic periventricular white matter ischemic changes are seen extending peripherally into the deep white matter both cerebral hemispheres. In addition, there also appear to be scattered small chronic appearing subcortical white matter infarcts as well.. The there also appear to be a few scattered chronic bilateral basal nuclei lacunar type infarcts.
--- NOTE | 2018-08-20 07:47 | CARD ---
APPROVED REPORT Date of service: 08/19/2018 EKG Measurement Heart [id number] <Conclusion> Normal sinus rhythm Normal ECG
[2018-08-21 07:34] LABS: HEMOGLOBIN 12.4 g/dL (12.0-16.0); MEAN CELL VOLUME 85.7 fl (80.0-105.0); MEAN CORPUSCULAR HEMOGLOBIN 27.3 pg (25.0-35.0); MEAN CORPUSCULAR HGB CONC 31.8 g/dl (31.0-37.0); MEAN PLATELET VOLUME 11.5 fl (7.0-11.0); RBC 4.55 10^6/uL (3.5-6.1); RED CELL DISTRIBUTION WIDTH 13.5 % (11.5-14.5); WHITE BLOOD COUNT 8.4 10^3/uL (4.5-11.0)
[2018-08-21] MEDS: Tmp-Smz 800 mg-160 mg DS Tab PO SCH ×2 (13:07→17:29)
--- NOTE | 2018-08-21 15:15 | CP.PCM.CON ---
History of Present Illness - History of Present Illness History of Present Illness: Neurology Consultation Note: Consult requested by Dr. Colin Mrs. Rivera is a 78-year-old woman with a past medical history of HTN, HLD, who I saw in the hospital about 2 weeks ago for a new right parietal occipital lobe intracerebral hemorrhage. She had a previous bleed about 15 years ago and also has a history of breast cancer, but has been in remission for the last 17 years. The patient was discharged from the hospital and returned on 08/19 complaining of generalized weakness and malaise. CT scan of the head shows resolving bleed, but there is a significant amount of edema surrounding it and it is suspicious for a possible mass. The patient was started on Keppra previously, but it does not appear to be on the home meds at this time. Review of Systems - Constitutional Constitutional: As Per HPI - EENT Eyes: absent: As Per HPI, Blind Spots, Blurred Vision, Change in Vision, Decreased Night Vision, Diplopia, Discharge, Dry Eye, Exophthalmos, Floaters, Irritation, Itchy Eyes, Loss of Peripheral Vision, Pain, Photophobia, Requires Corrective Lenses, Sees Flashes, Spots in Vision, Tunnel Vision, Other Visual D isturbances, Loss of Vision, Other Ears: absent: As Per HPI, Decreased Hearing, Ear Discharge, Ear Pain, Tinnitus, Abnormal Hearing, Disequilibrium, Dizziness, Other Nose/Mouth/Throat: absent: As Per HPI, Epistaxis, Nasal Congestion, Nasal Discharge, Nasal Obstruction, Nasal Trauma, Nose Pain, Post Nasal Drip, Sinus Pain, Sinus Pressure, Bleeding Gums, Change in Voice, Dental Pain, Dry Mouth, Dysphagia, Halitosis, Hoarsness, Lip Swelling, Mouth Lesions, Mouth Pain, Odynophagia, Sore Throat, Throat Swelling, Tongue Swelling, Facial Pain, Neck Pa in, Neck Mass, Other - Cardiovascular Cardiovascular: Irregular Heart Rhythm, Slow Heart Rate - Respiratory Respiratory: absent: As Per HPI, Cough, Dyspnea, Hemoptysis, Dyspnea on Exertion, Wheezing, Snoring, Stridor, Pain on Inspiration, Chest Congestion, Excessive Mucous Production, Change in Mucous Color, Pain with Coughing, Other - Gastrointestinal Gastrointestinal: absent: As Per HPI, Abdominal Pain, Belching, Bloating, Change in Bowel Habits, Change in Stool Character, Coffee Ground Emesis, Constipation, Cramping, Diarrhea, Dyspepsia, Dysphagia, Early Satiety, Excessive Flatus, Fecal Incontinence, Heartburn, Hematemesis, Hematochezia, Loose Stools, Melena, Nausea, Odynophagia, Temesmus, Vomiting, Other - Musculoskeletal Musculoskeletal: absent: As Per HPI, Abnormal Gait, Arthralgias, Atrophy, Back Pain, Deformity, Joint Swelling, Limited Range of Motion, Loss of Height, Muscle Cramps, Muscle Weakness, Myalgias, Neck Pain, Numbness, Radiating Pain into Limb, Stiffness, Tingling, Other - Integumentary Integumentary: absent: As Per HPI, Acne, Alopecia, Bleeding Lesions, Change in Hair, Change in Nails, Change in Pigmentation, Changing Lesions, Dry Skin, Erythema, Furuncle, Hirsutism, Lesions, New Lesions, Non-Healing Lesions, Photosensitivity, Pruritus, Rash, Skin Pain, Skin Ulcer, Sores, Striae, Swelling, Unusual Bruising, Wounds, Jaundice, Other - Neurological Neurological: As Per HPI - Psychiatric Psychiatric: absent: As Per HPI, Abnormal Sleep Pattern, Anhedonia, Anxiety, Auditory Hallucinations, Behavioral Changes, Change in Appetite, Change in Libido, Confusion, Depression, Difficulty Concentrating, Hallucinations, Homicidal Ideation, Hopelessness, Irritability, Memory Loss, Mood Swings, Panic Attacks, Paranoia, Suicidal Ideation, Visual Hallucinations, Tactile Hallucinations, Other - Endocrine Endocrine: absent: As Per HPI, Change in Body Appearance, Change in Libido, Cold Intolorance, Deepening of Voice, Excessive Sweating, Fatigue, Flushing, Heat Intolorance, Increase in Ring/Shoe/Hat Size, Palpitations, Polydipsia, Polyphagia, Polyuria, Other Past Patient History - Past Social History Smoking Status: Never Smoked - CARDIAC Hx Cardiac Disorders: Yes Hx Hypercholesterolemia: Yes Hx Hypertension: Yes Hx Internal Defibrillator: Yes - PULMONARY Hx Respiratory Disorders: No Hx Asthma: No Hx Bronchitis: No Hx Chronic Obstructive Pulmonary Disease (COPD): No Hx Emphysema: No Hx Pneumonia: No Hx Respiratory Aspiration: No Hx Respiratory Tract Infection: No Hx Sleep Apnea: No Hx Tuberculosis: No - NEUROLOGICAL Hx Neurological Disorder: Yes HX Cerebrovascular Accident: Yes (CVA 2wks ago) Hx Seizures: Yes - HEENT Hx HEENT Problems: No - RENAL Hx Chronic Kidney Disease: No - ENDOCRINE/METABOLIC Hx Endocrine Disorders: No - HEMATOLOGICAL/ONCOLOGICAL Hx Blood Disorders: Yes Hx Cancer: Yes (hx breast CA) Hx Unexplained Bleeding: Yes - INTEGUMENTARY Hx Dermatological Problems: No - MUSCULOSKELETAL/RHEUMATOLOGICAL Hx Musculoskeletal Disorders: No Hx Falls: No - GASTROINTESTINAL Hx Gastrointestinal Disorders: No - GENITOURINARY/GYNECOLOGICAL Hx Genitourinary Disorders: No - PSYCHIATRIC Hx Psychophysiologic Disorder: No Hx Substance Use: No (denies) - SURGICAL HISTORY Hx Surgeries: Yes Other/Comment: R breast lumpectomy, bladder sx - ANESTHESIA Hx Anesthesia Reactions: No Hx Malignant Hyperthermia: No Meds Allergies/Adverse Reactions: Allergies Allergy/AdvReac Type Severity Reaction Status Date / Time No Known Allergies Allergy Verified 08/06/18 20:46 - Medications Medications: Current Medications Atorvastatin Calcium (Lipitor) 40 mg PO DIN [facility] Last Admin: 08/20/18 17:46 Dose: 40 mg Hydrochlorothiazide (Hydrodiuril) 25 mg PO DAILY [facility] Last Admin: 08/21/18 09:20 Dose: 25 mg Raloxifene HCl (Evista) 60 mg PO DAILY [facility] Last Admin: 08/21/18 09:19 Dose: 60 mg Trimethoprim/Sulfamethoxazole (Bactrim Ds Tab) 1 tab PO BID [facility]; Protocol Last Admin: 08/21/18 13:07 Dose: 1 tab Physical Exam - Constitutional Appears: Confused - Head Exam Head Exam: ATRAUMATIC, NORMAL INSPECTION, NORMOCEPHALIC - Eye Exam Eye Exam: EOMI, Normal appearance, PERRL Pupil Exam: NORMAL ACCOMODATION, PERRL - ENT Exam ENT Exam: Mucous Membranes Moist, Normal Exam - Neck Exam Neck exam: Positive for: Normal Inspection - Respiratory Exam Respiratory Exam: Clear to Auscultation Bilateral, NORMAL BREATHING PATTERN - Cardiovascular Exam Cardiovascular Exam: REGULAR RHYTHM, +S1, +S2 - GI/Abdominal Exam GI & Abdominal Exam: Normal Bowel Sounds, Soft. absent: Tenderness - Extremities Exam Extremities exam: Positive for: normal inspection - Back Exam Back exam: NORMAL INSPECTION - Neurological Exam Neurological exam: Alert, CN II-XII Intact, Normal Gait, Oriented x3, Reflexes Normal Additional comments: Left side pronator drift and slight neglect. - Psychiatric Exam Psychiatric exam: Normal Affect, Normal Mood - Skin Skin Exam: Dry, Intact, Normal Color, Warm Results - Vital Signs Recent Vital Signs: Last Vital Signs Temp 97.7 F 08/21/18 06:00 Pulse 62 08/21/18 06:00 Resp 20 08/21/18 06:00 BP 121/58 L 08/21/18 06:00 Pulse Ox 96 08/21/18 06:00 - Labs Result Diagrams: 08/21/18 06:50 08/19/18 16:00 Labs: Laboratory Results - last 24 hr 08/20/18 08/21/18 12:50 06:50 WBC 8.4 D RBC 4.55 Hgb 12.4 Hct 39.0 MCV 85.7 MCH 27.3 MCHC 31.8 RDW 13.5 Plt Count 189 MPV 11.5 H 25-OH Vitamin D Total 50.1 Assessment & Plan (1) Intracerebral hemorrhage Assessment and Plan: I recommend resuming Keppra 500 mg BID for seizure prophylaxis considering the location of the mass-like bleeding lesion. An MRI of the brain should be obtained again with and without contrast now that the blood is resolving. This will help determine if there is an underlying mass. There is a significant amount of what appears to be vasogenic edema. I will start her on decadron 10 mg Q 8 hours for a total of 6 doses. Thank you for this consultation. Status: Acute
--- NOTE | 2018-08-21 15:58 | PN ---
DATE: 08/21/2018 SUBJECTIVE: This 78-year-old female remains hospitalized on the cardiac mejía at the [facility] on the morning of 08/21/2018. I did review her urine culture results that are growing gram-negative julita, identification and sensitivity to follow. Her head CT was reviewed by Dr. Franklin Juarez from Radiology which shows a previously noted hematoma in her right posterior temporoparietal area which has diminished in size and attenuation. There is a wide rim of low attenuation vasogenic white matter edema surrounding the hematoma and the hematoma and its attendant surrounding the edema exert persistent considerable mass effect as well as compression of her right occipital horn and posterior body of the right lateral ventricle. As a result, a consultation with Dr. Connor Simon from Neurology has been requested. PHYSICAL EXAMINATION: GENERAL: The patient is chest pain free and in normal sinus rhythm. VITAL SIGNS: Temperature of 97.7, respirations 20, pulse 67 and blood pressure 121/58. Pulse ox 96% on room air. Physical exam is unchanged. LABORATORY DATA: White count 8400, hemoglobin 12.4, hematocrit 39, platelets 189,000. Vitamin D level 50.1. Influenza A and B serology negative. IMPRESSION: A 78-year-old female admitted with dizziness, history of bradycardia at home and comorbidities of hyperlipidemia, chronic hypertension, history of old breast cancer, now with urinary tract infection. PLAN: To await neurological evaluation regarding symptoms of dizziness, bradycardia, and CT findings of intracranial edema. She will continue on Lipitor, HydroDIURIL, Evista and I will start Bactrim double strength 1 tablet p.o. b.i.d. for a gram-negative urinary tract infection. She will continue on heart-healthy diet, has been encouraged to ambulate with assistance. Blood culture show no growth. Based on clinical results and neurological evaluation, additional diagnostic workup and testing will be entertained. Greater than 35 minutes were spent in the care of this patient today. Rosalba Colin MD DONNA
[2018-08-21] MEDS ORDERED: Gadodiamide 287 MG/ML VIAL (15ML) IV ONE (16:25)
[2018-08-21] MEDS: Dexamethasone 10 MG in Sodium Chloride 0.9% 50 ML IV SCH ×2 (17:24→21:20)
[2018-08-22] MEDS: Dexamethasone 10 MG in Sodium Chloride 0.9% 50 ML IV SCH ×3 (05:19→22:34)
--- NOTE | 2018-08-22 07:07 | MRI ---
Date of service: 08/21/2018 PROCEDURE: MRI BRAIN WITH AND WITHOUT CONTRAST HISTORY: ICH, possible mass COMPARISON: Comparison 08/25/2030 TECHNIQUE: Multiplanar, multisequence MR images of the brain were obtained with and without intravenous contrast enhancement. FINDINGS: HEMORRHAGE: Redemonstrated is elliptical shaped hematoma stages of evolution located right posterior temporoparietal watershed zone... No evidence definitive abnormal enhancement within or about hemorrhage seen to suggest underlying mass. The rim surrounding edema has increased with compared prior MRI. The hemorrhage and surrounding edema continue to exert moderate mass effect with overlying sulcal effacement and compression of the right right atrium as well as mild occipital horn and to a lesser degree posterior body of the right lateral ventricle DWI: No evidence of an acute or early subacute infarction seen on diffusion imaging. BRAIN PARENCHYMA: Mild moderate chronic periventricular white ischemic changes again seen extending peripherally deep and subcortical white matter both of cerebral hemispheres fall with multiple more discrete lacunar type infarcts scattered about the deep and subcortical white matter.. [id number] generalized volume loss ENHANCEMENT: No abnormal intracranial enhancement. VENTRICLES: No obstructive hydrocephalus. CRANIUM: Unremarkable. ORBITS: Grossly unremarkable. PARANASAL SINUSES/MASTOIDS: Minimal mucosal thickening seen within the ethmoid air complex VASCULAR SYSTEM: Skull base flow voids intact. OTHER FINDINGS: None . IMPRESSION: Redemonstrated is elliptical shaped hematoma stages of evolution located right posterior temporoparietal watershed zone... No evidence definitive abnormal enhancement within or about hemorrhage seen to suggest underlying mass. The rim surrounding edema has increased with compared prior MRI. The hemorrhage and surrounding edema continue to exert moderate mass effect with overlying sulcal effacement and compression of the right atrium as well as mild occipital horn and to a lesser degree posterior body of the right lateral ventricle Mild moderate chronic periventricular white ischemic changes again seen extending peripherally deep and subcortical white matter both of cerebral hemispheres. Mild to moderate generalized volume loss
--- NOTE | 2018-08-22 08:11 | HP ---
DATE OF EXAM: 08/19/2018 HISTORY OF PRESENT ILLNESS: This 78-year-old female was examined in the [facility] emergency room on the afternoon of Wednesday, August 19, 2018. Present for this interview was her daughter and her . Case was reviewed in detail with emergency room physician, Chan Garza, medical doctor. This patient presented to the emergency room today complaining of generalized weakness. Within this past month, she was hospitalized for an intracranial hemorrhage of unclear etiology. PAST MEDICAL HISTORY: Includes hypertension, hyperlipidemia, history of old breast cancer 15 years ago status post lumpectomy. The patient states that on the afternoon of her admission she had weakness, dizziness, lightheadedness and a mild headache. The patient states she took a blood pressure and pulse at home and her pulse was in the 40s. She had been told to take propranolol 10 mg p.o. b.i.d. after having been switched from Lopressor to propranolol and states she has not felt well since starting this medication. Additionally her outpatient medications included Keppra 500 mg p.o. b.i.d. completed after her intracranial hemorrhage approximately 4 weeks ago, Evista 60 mg p.o. daily and Crestor 10 mg p.o. daily. ALLERGIES: SHE DENIED ANY ALLERGIES TO MEDICATION. SOCIAL HISTORY: Is a nondrinker, nonsmoker and non IV drug misuser. FAMILY HISTORY: Noncontributory. REVIEW OF SYSTEMS: CONSTITUTIONAL: No fever, no chills. HEAD: Light headache at home. EYES: No change in visual acuity. EAR: No hearing loss. THROAT: No swallowing difficulty. NECK: No stiffness. CARDIAC: As per HPI. PULMONARY: No cough. No hemoptysis. GI: No hematemesis. No melena. : No dysuria. SKIN: No rash. VASCULAR: No claudication. PSYCHOLOGICAL: No anxiety. No depression. OUTPATIENT MEDICATIONS: Included; Crestor, Evista, completion of Keppra and previous propranolol. PHYSICAL EXAMINATION: GENERAL: At the time of my interview, the patient was noted to be alert and oriented x3. VITAL SIGNS: Temperature 98.7, respirations 18, pulse 75 and blood pressure 127/60. Pulse ox 98% room air. HEENT: Head normocephalic and atraumatic. Eyes: No icterus. Ears: Clear. Throat: Noninjected. NECK: Supple. HEART: S1 and S2. No pathological rubs, murmurs or gallops. LUNGS: Clear. ABDOMEN: Soft. EXTREMITIES: No edema. SKIN: Without rash. NEUROLOGICAL: Intact. PSYCHOLOGICAL: Alert. VASCULAR: Legs warm to touch. LABORATORY DATA: White count 12,000, hemoglobin 13.2, hematocrit 40.6 and platelets 221,000. PT/INR 1.14 and PTT 29.3. Sodium 139, K 3.6, chloride 100, bicarb 29, BUN 22, creatinine 0.8, random blood sugar 144, calcium 9.9, magnesium 2.1, bilirubin 0.9, AST 25, ALT 9 and alk phos 60. Troponin less than 0.01. BNP 169. Urinalysis showed moderate bacteria. Influenza A and B serology was negative. Chest x-ray was reviewed. It showed possible blunting of her right costophrenic angle. There was no evidence of infiltrate, CHF or effusion. Head CT was reviewed and a previously noted hematoma was in the right posterior temporoparietal zone was noted that had diminish in size and attenuation. Also EKG was reviewed. It showed normal sinus rhythm with nonspecific ST-T wave changes. IMPRESSION: This is a 78-year-old female admitted with dizziness, history of recent intracranial hemorrhage within the past month, now off Keppra as per neurological evaluation, rule out urinary tract infection, rule out bradycardia secondary to outpatient medication now on hold. PLAN: To admit this patient to the cardiac mejía. She will be ordered to have blood and urine cultures. She will continue her Evista and Lipitor. She is on a heart-healthy diet and will be monitored on the cardiac mejía while receiving physical therapy. Based on clinical progress, additional diagnostic workup and testing will be entertained. Greater than 75 minutes was spent in the care management, review of labs, outlining of orders and discussion of this patient with emergency room physician and family as well as herself. All questions were answered. Rosalba Colin MD
[2018-08-22] MEDS: Tmp-Smz 800 mg-160 mg DS Tab PO SCH ×2 (09:09→17:07)
[2018-08-22] MEDS ORDERED: Iohexol 350 MG/100 ML VIAL ONE (11:21)
--- NOTE | 2018-08-22 12:05 | CP.PCM.PN ---
<Ernst Lui - Last Filed: 08/22/18 14:48> Subjective - Date & Time of Evaluation Date of Evaluation: 08/22/18 Time of Evaluation: 12:05 - Subjective Subjective: PGY-1 Neurology Progress note for Dr. Gay Patient seen and examined at bedside. No acute events overnight. She has no complaints at this time. Objective - Vital Signs/Intake and Output Vital Signs (last 24 hours): Temp Pulse Resp BP Pulse Ox 98.1 F 98 H 18 111/70 93 L 08/22/18 05:45 08/22/18 10:00 08/22/18 05:45 08/22/18 05:45 08/22/18 05:45 Intake and Output: 08/22/18 08/22/18 06:59 18:59 Intake Total 460 Balance 460 - Medications Medications: Current Medications Atorvastatin Calcium (Lipitor) 40 mg PO DIN [facility] Last Admin: 08/21/18 17:27 Dose: 40 mg Hydrochlorothiazide (Hydrodiuril) 25 mg PO DAILY [facility] Last Admin: 08/22/18 09:08 Dose: 25 mg Dexamethasone 10 mg/ Sodium (Chloride) 52.5 mls @ 150 mls/hr IV Q8 [facility] Stop: 08/23/18 06:20 Last Admin: 08/22/18 05:19 Dose: 150 mls/hr Levetiracetam (Keppra) 500 mg PO BID [facility] Last Admin: 08/22/18 09:09 Dose: 500 mg Raloxifene HCl (Evista) 60 mg PO DAILY [facility] Last Admin: 08/22/18 09:09 Dose: 60 mg Trimethoprim/Sulfamethoxazole (Bactrim Ds Tab) 1 tab PO BID [facility]; Protocol Last Admin: 08/22/18 09:09 Dose: 1 tab - Labs Labs: 08/21/18 06:50 08/19/18 16:00 PT 12.6 SECONDS (9.4-12.5) H 08/19/18 16:00 INR 1.14 08/19/18 16:00 APTT 29.3 Seconds (26.9-38.3) 08/19/18 16:00 - Additional Findings Additional findings: - Constitutional Appears: Not in distress - Head Exam Head Exam: ATRAUMATIC, NORMAL INSPECTION, NORMOCEPHALIC - Eye Exam Eye Exam: EOMI, Normal appearance, PERRL Pupil Exam: NORMAL ACCOMODATION, PERRL - ENT Exam ENT Exam: Mucous Membranes Moist, Normal Exam - Neck Exam Neck exam: Positive for: Normal Inspection - Respiratory Exam Respiratory Exam: Clear to Auscultation Bilateral, NORMAL BREATHING PATTERN - Cardiovascular Exam Cardiovascular Exam: REGULAR RHYTHM, +S1, +S2 - GI/Abdominal Exam GI & Abdominal Exam: Normal Bowel Sounds, Soft. absent: Tenderness - Extremities Exam Extremities exam: Positive for: normal inspection - Back Exam Back exam: NORMAL INSPECTION - Neurological Exam Neurological exam: Alert, CN II-XII Intact, Normal Gait, Oriented x3, Reflexes Normal Additional comments: Mild ptosis on the left side. - Psychiatric Exam Psychiatric exam: Normal Affect, Normal Mood - Skin Skin Exam: Dry, Intact, Normal Color, Warm Assessment and Plan - Assessment and Plan (Free Text) Assessment: Patient is a 78 year old female with a histroty of right parietal occipital lobe intracerebral hemorrhage, presenting with generalized fatigue and malaise. CT scan of the head shows resolving bleed, but there is a significant amount of edema surrounding it and it is suspicious for a possible mass. Plan: - Chest, abdomen, pelvic CT to rule out metastasis: pending - Continue Decadron 10 mg Q8 hours for a total of 6 doses - Continue Lipitor 40mg daily - Continue Keppra 500mg PO BID - Hold Aspirin or other anticoagulants - Further recommendations as per Dr. Gay Patient seen and case discussed with attending, Dr. Gay. Ernst Lui, PGY-1 Imaging: - Brain MRI (08/21): Redemonstrated is elliptical shaped hematoma stages of evolution located right posterior temporoparietal watershed zone... No evidence definitive abnormal enhancement within or about hemorrhage seen to suggest underlying mass. The rim surrounding edema has increased with compared prior MRI. The hemorrhage and surrounding edema continue to exert moderate mass effect with overlying sulcal effacement and compression of the right atrium as well as mild occipital horn and to a lesser degree posterior body of the right lateral ventricle. (See full report) - Head CT (08/19): Previously noted hematoma within the right posterior a temporoparietal watershed zone has diminished in size and attenuation. Redemonstrated is a relatively wide rim of low-attenuation vasogenic white matter edema surrounding the hematoma. Hematoma and its attendant surrounding edema exert persistent considerable mass effect with overlying sulcal enlargement effacement as well as compression of the right occipital horn and posterior body of the right lateral ventricle. (See full report) - Heand/neck CTA (08/03): Unremarkable CT Angiography of the Brain and Neck. <Kale Gay - Last Filed: 08/22/18 23:35> Objective - Vital Signs/Intake and Output Vital Signs (last 24 hours): Temp Pulse Resp BP Pulse Ox 98.3 F 74 20 116/64 94 L 08/22/18 18:00 08/22/18 18:00 08/22/18 18:00 08/22/18 18:00 08/22/18 16:51 Intake and Output: 08/22/18 08/23/18 18:59 06:59 Intake Total 1310 Output Total 5 Balance 1305 - Medications Medications: Current Medications Atorvastatin Calcium (Lipitor) 40 mg PO DIN [facility] Last Admin: 08/22/18 17:07 Dose: 40 mg Hydrochlorothiazide (Hydrodiuril) 25 mg PO DAILY [facility] Last Admin: 08/22/18 09:08 Dose: 25 mg Dexamethasone 10 mg/ Sodium (Chloride) 52.5 mls @ 150 mls/hr IV Q8 [facility] Stop: 08/23/18 06:20 Last Admin: 08/22/18 22:34 Dose: 150 mls/hr Levetiracetam (Keppra) 500 mg PO BID [facility] Last Admin: 08/22/18 17:07 Dose: 500 mg Raloxifene HCl (Evista) 60 mg PO DAILY [facility] Last Admin: 08/22/18 09:09 Dose: 60 mg Trimethoprim/Sulfamethoxazole (Bactrim Ds Tab) 1 tab PO BID [facility]; Protocol Last Admin: 08/22/18 17:07 Dose: 1 tab - Labs Labs: 08/21/18 06:50 08/19/18 16:00 PT 12.6 SECONDS (9.4-12.5) H 08/19/18 16:00 INR 1.14 08/19/18 16:00 APTT 29.3 Seconds (26.9-38.3) 08/19/18 16:00 Assessment and Plan - Assessment and Plan (Free Text) Plan: Attending/Attestation - Attestation I have personally seen and examined this patient.: Yes I have fully participated in the care of the patient.: Yes I have reviewed all pertinent clinical information: Yes Notes (Text): Mrs Rivera has had a new hemorrhaGe with significant edema that i feel is quite suspicious for a hemorrhagic metstases. Plan: 1. CT chest abdomen pelvis. 2. Continue pt. Dr. Gay
--- NOTE | 2018-08-22 15:52 | CT ---
Date of service: 08/22/2018 PROCEDURE: CT Chest, Abdomen and Pelvis with intravenous contrast HISTORY: r/o mets COMPARISON: 01/31/2018 TECHNIQUE: IV dose administered: 100 cc of Omni 350 Radiation dose: Total exam DLP = 398.5 mGy-cm. This CT exam was performed using one or more of the following dose reduction techniques: Automated exposure control, adjustment of the mA and/or kV according to patient size, and/or use of iterative reconstruction technique. FINDINGS: CT CHEST WITH CONTRAST: LUNGS: Clear. No nodule, mass or consolidation. MEDIASTINUM: Unremarkable. Normal caliber aorta and pulmonary arterial trunk. No aortic dissection. Normal size heart. LYMPH NODES: Unremarkable. PLEURA: Unremarkable. No pneumothorax. No pleural fluid. BONES: Unremarkable. OTHER FINDINGS: None. CT ABDOMEN AND PELVIS: LIVER: Unremarkable. No gross lesion or ductal dilatation. GALLBLADDER AND BILE DUCTS: Small gallstones PANCREAS: Unremarkable. No gross lesion or ductal dilatation. SPLEEN: Unremarkable. ADRENALS: Unremarkable. No mass. KIDNEYS AND URETERS: Unremarkable. No hydronephrosis. No solid mass. VASCULATURE: No aortic atherosclerotic calcification or mural plaque present. Unremarkable. No aortic aneurysm. BOWEL: There is severe constipation. There diverticulosis of the sigmoid and descending colon. APPENDIX: Normal appendix. PERITONEUM: Unremarkable. No free fluid. No free air. LYMPH NODES: Unremarkable. No enlarged lymph nodes. BLADDER: Unremarkable. REPRODUCTIVE: Unremarkable. BONES: No acute fracture. OTHER FINDINGS: None. IMPRESSION: No acute findings. No evidence of metastatic disease
--- NOTE | 2018-08-22 22:39 | PN ---
DATE: 08/22/2018 SUBJECTIVE: This 78-year-old female was examined on the cardiac mejía at the [facility] on the morning of 08/22/2018. The case was reviewed in detail with herself, neurologist Dr. Gay, and cardiac nurse Kandace Jin, registered nurse. The patient was seen by Dr. Connor Simon yesterday afternoon. He did concur with the finding of increased edema on the patient's CAT scan and has requested an MRI. The patient was placed on IV Decadron and oral Keppra as a precaution and she is undergoing additional testing for these findings. She is tolerating Bactrim for her urinary tract infection and remains in a normal sinus rhythm on the cardiac cath tech. PHYSICAL EXAMINATION: VITAL SIGNS: Today, her temperature is 98.4, respirations 20, pulse 102 and blood pressure 144/70. HEENT: Head: Normocephalic, atraumatic. Eyes: No icterus. Ears: Clear. Throat: Noninjected. NECK: Supple. HEART: Regular. S1, S2. LUNGS: Clear. ABDOMEN: Soft. EXTREMITIES: No edema. SKIN: Without rash. NEUROLOGICAL: Intact. PSYCHOLOGICAL: Alert. VASCULAR: Legs warm to touch. LABORATORY DATA: Urine culture is growing E. coli sensitive to Bactrim. Blood cultures are negative x2. White count 8400, previously 12,000, hemoglobin 12.4, hematocrit 39.0, platelets 189,000. PT/INR 1.14, PTT 29.3. Sodium 139, K 3.6, chloride 100, bicarb 29, BUN 22, creatinine 0.8, random blood sugar 144. All liver function testing was normal. Influenza A and B serologies were negative. IMPRESSION: A 78-year-old female with history of hemorrhagic stroke approximately 1 month ago of unclear etiology, now with a CT of the head showing evidence of increased edema in the area of her previous hemorrhage and also with urinary tract infection secondary to Escherichia coli in a woman with history of breast cancer in the distant past, hyperlipidemia, hypertension and history of tachybrady syndrome. PLAN: At present is to continue Bactrim, dexamethasone intravenously, Evista, HydroDIURIL, Keppra and Lipitor. She is being scheduled for a CT of abdomen and pelvis for completeness sake and will have neurological medication adjusted accordingly. Greater than 35 minutes was spent in the care management, review of labs, orders, x-rays, discussion of this patient with nurse Davin, Dr. Gay and the patient. All questions were answered Rosalba Colin MD
[2018-08-23] MEDS: Dexamethasone 10 MG in Sodium Chloride 0.9% 50 ML IV SCH (06:43)
[2018-08-23] MEDS: Tmp-Smz 800 mg-160 mg DS Tab PO SCH ×2 (10:20→17:29)
--- NOTE | 2018-08-23 19:56 | CON ---
DATE: 08/23/2018 REASON FOR THE CONSULTATION: Bradycardia, was on propranolol, cardiac evaluation. Admitted with syncope, rule out metastatic lesion, intracranial hemorrhage with unclear etiology. BRIEF CLINICAL HISTORY: This is a 78-year-old female with past medical history significant for hypertension, hyperlipidemia, arrhythmia, recently seen by Dr. Cr and was on metoprolol, changed to propranolol, who was in usual state of health, was sitting with a friend. Suddenly, she felt that she is going to pass out, but did not pass out. Friend helped. At that time, she states that her friend checked her heart rate was found to be 40 and the blood pressure was elevated. Fingerstick was normal and blood sugar was not low, called ambulance and brought here. Initial CAT scan shows hemorrhage of unclear etiology in the brain, intracerebral bleed. Now the repeat MRI was done, that also shows watershed area and hemorrhage. Working diagnosis is rule out metastatic lesion in the brain that causes hemorrhage. The patient denies any chest pain, denies any shortness of breath, denies any palpitations. During the course of hospitalization, patient's one episode heart rate was 40, but could not find the telemetry strip. Admitting EKG is normal sinus. Cardiology consult was called for followup and evaluation. Patient denies any chest pain, denies any shortness of breath, denies any palpitation. PAST MEDICAL HISTORY: Significant as mentioned, hypertension, hyperlipidemia. PAST SURGICAL HISTORY: Significant for lumpectomy 23 years ago on the right breast. CURRENT MEDICATION: The patient is taking rosuvastatin 10 mg daily, Keppra 500 p.o. b.i.d., [place] 3, Evista, vitamin D3 and propranolol 10 mg p.o. b.i.d. ALLERGIES: NO KNOWN DRUG ALLERGY. RECENT CARDIAC WORKUP: As follows. The patient had an echocardiography done, 07/11/2018 that showed ejection fraction 58%, normal chamber size. Ejection fraction 58%. Trace aortic regurgitation, moderate mitral regurgitation, mild tricuspid regurgitation, RV systolic pressure 30.1. Patient has a stress test dated 07/20/2018 that shows fixed apical defect possibly secondary to breast attenuation. Ejection fraction 70%, no ischemia. The patient has a Holter monitor done dated 05/31/2018, Dr. Cr that shows normal sinus to sinus tachycardia. Lowest heart rate 31, maximum heart rate about 120. Runs of APCs noted full beat, longest RR is 3 seconds. No significant arrhythmia noted except as mentioned above. REVIEW OF SYSTEMS: As per HPI. PHYSICAL EXAMINATION: As follows: GENERAL: Height of the patient 5 feet 2 inches. Weight of the patient 130 pounds, body mass index 23.9 kg per m2. VITAL SIGNS: Temperature afebrile, heart rate 97, blood pressure 118/54. HEENT: PERRLA. Extraocular muscles intact. NECK: Supple. No carotid bruit or thyromegaly. CHEST: Clear to auscultation. HEART: S1 and S2 regular. ABDOMEN: Soft. EXTREMITIES: Clubbing and cyanosis negative. LABORATORY DATA: WBC 8.5, hemoglobin 12.4, hematocrit 39.0, platelet count 189. Chemistry shows sodium 139, potassium 3.6, chloride 100, carbon dioxide 29, anion gap 14, BUN 20, creatinine 0.8 as of 08/19/2018. Troponin remains slight at 0.01. Vitamin D3 50 and serum albumin 4.5, total protein 8.3, albumin-globulin ratio 1.2. EKG shows normal sinus at the rate of 76. Telemetry strip shows essentially normal sinus. It is reported that heart rate is 46, but I could not see the telemetry strip. It is set with certified technician, no significant arrhythmia noted except some block APCs noted. IMPRESSION: A 78-year-old female with past medical history significant for hypertension and hyperlipidemia with vitamin D deficiency admitted with near syncope and possibly intracerebral bleed. Etiology of the bleed is unclear, possibly hemorrhagic stroke. Repeat CAT scan shows include edema of the previous hemorrhage. The patient has a urinary tract infection as well. History of breast cancer many years ago, stressed as a lumpectomy 23 years ago. Though, the patient has a Holter shows some bradycardia and tachycardia, but is well-controlled on propranolol. Now the patient is off beta-mike. The patient at one point was on metoprolol succinate, but rate was not well controlled. Still heart rate was in 30s, was discontinued and started on propranolol by Dr. Cr. Recent echo shows no significant structural heart disease, except trace aortic regurgitation, [id number] mitral regurgitation, mild tricuspid regurgitation, right ventricular systolic pressure 30, preserved left ventricular function, ejection fraction 58%. Recent echo dated 07/19/2018 shows essentially normal myocardial perfusion study. No ischemia. RECOMMENDATION: We will monitor in telemetry. Continue neuro workup. We will follow with you. Get the lipid profile, TSH, hemoglobin A1c. We will follow with you. So far, it does not show any indication of pacemaker. We will monitor closely. If the patient needs pacemaker, we will proceed, but so far at this point, no hard evidence to put the pacemaker. We will follow closely with you. Thank you Dr. Cristi Navarrete for the opportunity in taking care of the patient Stacie Rivera. Alexander Demarco MD
--- NOTE | 2018-08-23 22:36 | PN ---
DATE: 08/23/2018 SUBJECTIVE: This 78-year-old female was examined on the cardiac mejía at the [facility] on the morning of 08/23/2018. This case was reviewed in detail with her nurse, Zelda Ibrahim and case therapist, Rosio Valle. The patient is receiving IV Decadron and oral Keppra under the direction of Dr. Simon from Neurology. She was found on this admission to have increasing edema of the brain status post a hemorrhagic stroke approximately 1 month ago. This was confirmed on brain MRI, and a chest, abdomen and pelvic CT as requested by Dr. Gay from Neurology was reviewed and shows no acute findings with no evidence of metastatic disease despite her history of breast cancer in the distant past. At present, I am awaiting followup evaluation by Neurology regarding their decision on any further medication adjustment and instructions for this patient, and I have also requested a consultation with Dr. Demarco regarding her history of tachybrady syndrome which prompted the discontinuation of her beta-mike which she stated was propranolol upon admission because of bradycardia at home. Of note, I did review her EKG tracings, and this morning, she was noted to have a pulse rate of 46, as a result her beta-mike remains on hold. Fortunately, there have been no episodes of sustained tachycardia. PHYSICAL EXAMINATION: GENERAL: At present, she is in a normal sinus rhythm. VITAL SIGNS: Temperature of 97.8, respirations 19, pulse 71, and blood pressure 118/54 with a pulse ox of 98% on room air. HEENT: Head: Normocephalic, atraumatic. Eyes: No icterus. Ears: Clear. Throat: Noninjected. NECK: Supple. HEART: Regular, S1, S2. No pathological rubs, murmurs or gallops. LUNGS: Clear. ABDOMEN: Soft. EXTREMITIES: No edema. SKIN: Without rash. NEUROLOGICAL: Intact. PSYCHOLOGICAL: Alert. VASCULAR: Legs warm to touch. LABORATORY DATA: White count 8400, hemoglobin 12.4, hematocrit 39, platelets 189,000. PT/INR 1.14, PTT 29.3. Sodium 139, K 3.6, chloride 100, bicarb 29, BUN 22, creatinine 0.8, random blood sugar 144, calcium 9.9, magnesium 2.1. Bilirubin 0.9, AST 25, ALT 9, alk phos 60. Troponin less than 0.01. Vitamin D level 50.1, normal. Influenza A and B serologies negative. Urine culture is growing E. coli sensitive to Bactrim. IMPRESSION: A 78-year-old female, admitted with dizziness, bradycardia, history of tachybrady syndrome causing the discontinuation of her beta-mike with persistent asymptomatic bradycardia and no evidence of tachycardia at present and comorbidities of Escherichia coli urinary tract infection, history of breast cancer in the distant past, chronic hypertension and a hemorrhagic brain stroke approximately 1 month ago, now with evidence of brain edema and hyperlipidemia. PLAN: The patient will continue on Bactrim, Evista, HydroDIURIL, Keppra and Lipitor. She remains on the cardiac mejía and has a consultation requested with Dr. Demarco from Cardiology. She will continue on a heart-healthy diet and additional diagnostic workup and testing will be entertained based on recommendations from Neurology and Cardiology. Greater than 35 minutes were spent in the care of this patient, discussion of her x-ray findings and discussion with nursing and case management. All questions were answered. Rosalba Colin MD [facility]DA[facility]
[2018-08-24 07:38] LABS: BASO # 0.01 K/mm3 (0.0-2.0); HEMOGLOBIN 13.9 g/dL (12.0-16.0); LYMPH # 2.2 (1.2-3.4); MEAN CELL VOLUME 84.1 fl (80.0-105.0); MEAN CORPUSCULAR HEMOGLOBIN 27.6 pg (25.0-35.0); MEAN CORPUSCULAR HGB CONC 32.9 g/dl (31.0-37.0); MONO # 1.1 (0.1-0.6); MONO % 4.8 % (1.0-6.0); RBC 5.03 10^6/uL (3.5-6.1); RED CELL DISTRIBUTION WIDTH 13.7 % (11.5-14.5); WHITE BLOOD COUNT 22.2 10^3/uL (4.5-11.0)
[2018-08-24] MEDS: Tmp-Smz 800 mg-160 mg DS Tab PO SCH ×2 (09:05→17:37)
[2018-08-24 09:35] LABS: ALB/GLOB RATIO 1.1 (1.1-1.8); ALBUMIN 4.5 g/dL (3.0-4.8); CALCIUM 10.1 mg/dL (8.4-10.5)
--- NOTE | 2018-08-24 12:14 | CP.PCM.PCO ---
Physician Communication Note - Physician Communication Note Physician Communication Note: Holter monitor today
[2018-08-24] MEDS ORDERED: DiphenhydrAMINE 50 mg/ml Inj IVP ONE (12:24)
[2018-08-24] MEDS ORDERED: MethylPREDNISolone 40 mg Vial IVP ONE (12:24)
--- NOTE | 2018-08-24 12:25 | CP.PCM.PN ---
Subjective - Date & Time of Evaluation Date of Evaluation: 08/24/18 Time of Evaluation: 12:21 - Subjective Subjective: PGY-1 Neurology Progress note for Dr. Gay Patient was seen and examined at bedside. No acute events overnight. She denies headaches, fevers, chills, shortness of breath, chest pain, abdominal pain, or any other complaints at this time. Objective - Vital Signs/Intake and Output Vital Signs (last 24 hours): Temp Pulse Resp BP Pulse Ox 97.9 F 77 20 115/60 97 08/24/18 06:00 08/24/18 09:08 08/24/18 06:00 08/24/18 09:08 08/24/18 06:00 - Medications Medications: Current Medications Atorvastatin Calcium (Lipitor) 40 mg PO DIN [facility] Last Admin: 08/23/18 17:29 Dose: 40 mg Hydrochlorothiazide (Hydrodiuril) 25 mg PO DAILY [facility] Last Admin: 08/24/18 09:06 Dose: 25 mg Levetiracetam (Keppra) 500 mg PO BID [facility] Last Admin: 08/24/18 09:05 Dose: 500 mg Raloxifene HCl (Evista) 60 mg PO DAILY [facility] Last Admin: 08/24/18 09:05 Dose: 60 mg Trimethoprim/Sulfamethoxazole (Bactrim Ds Tab) 1 tab PO BID [facility]; Protocol Last Admin: 08/24/18 09:05 Dose: 1 tab - Labs Labs: 08/24/18 07:25 08/24/18 07:25 PT 12.6 SECONDS (9.4-12.5) H 08/19/18 16:00 INR 1.14 08/19/18 16:00 APTT 29.3 Seconds (26.9-38.3) 08/19/18 16:00 - Additional Findings Additional findings: - Constitutional Appears: Not in distress - Head Exam Head Exam: ATRAUMATIC, NORMAL INSPECTION, NORMOCEPHALIC - Eye Exam Eye Exam: EOMI, Normal appearance, PERRL Pupil Exam: NORMAL ACCOMODATION, PERRL - ENT Exam ENT Exam: Mucous Membranes Moist, Normal Exam - Neck Exam Neck exam: Positive for: Normal Inspection - Respiratory Exam Respiratory Exam: Clear to Auscultation Bilateral, NORMAL BREATHING PATTERN - Cardiovascular Exam Cardiovascular Exam: REGULAR RHYTHM, +S1, +S2 - GI/Abdominal Exam GI & Abdominal Exam: Normal Bowel Sounds, Soft. absent: Tenderness - Extremities Exam Extremities exam: Positive for: normal inspection - Back Exam Back exam: NORMAL INSPECTION - Neurological Exam Neurological exam: Alert, CN II-XII Intact, Normal Gait, Oriented x3, Reflexes Normal Additional comments: Mild ptosis on the left side. Muscle strength 5/5 and sensations intact in all extremities. - Psychiatric Exam Psychiatric exam: Normal Affect, Normal Mood - Skin Skin Exam: Dry, Intact, Normal Color, Warm Assessment and Plan - Assessment and Plan (Free Text) Assessment: Patient is a 78 year old female with a history of right parietal occipital lobe intracerebral hemorrhage, presenting with generalized fatigue and malaise. Plan: - Continue to take Prednisone 40mg QD for 5 days - Continue to take Keppra 250mg BID - Follow up with Dr. Simon in his office in 2-4 weeks - Further recommendations as per Dr. Gay Disposition: Cleared for discharge from neurology's standpoint. Patient seen and case discussed with attending, Dr. Victor Hugo Lui, PGY-1
--- NOTE | 2018-08-24 12:40 | CARD ---
APPROVED REPORT Date of service: 08/24/2018 EKG Measurement Heart [id number] <Conclusion> Sinus bradycardia with marked sinus arrhythmia Otherwise normal ECG
--- NOTE | 2018-08-24 13:49 | PN ---
DATE: 08/24/2018 REASON FOR CONSULTATION AND FOLLOWUP: Bradycardia, on propranolol, cardiac evaluation, admitted with syncope, rule out metastatic lesion, intracranial hemorrhage, etiology unclear, rule out tachybrady syndrome. SUBJECTIVE: The patient denies any chest pain, shortness of breath, or any palpitation. is at bedside. OBJECTIVE: VITAL SIGNS: As follows, temperature afebrile, heart rate 77, blood pressure 115/62. HEENT: PERRLA. Extraocular muscles intact. NECK: Supple. No carotid bruit, no thyromegaly. CHEST: Clear to auscultation. HEART: S1 and S2 regular. ABDOMEN: Soft. EXTREMITIES: Clubbing and cyanosis negative. LABORATORY DATA: Blood workup as follows: WBC 22.2, hemoglobin 13.9, hematocrit 42.3, platelet count 236. Chemistry shows sodium 140, potassium 4.3, chloride 103, carbon dioxide 23, anion gap 18, BUN 30, creatinine 1.2. IMPRESSION: A 78-year-old female with past medical history significant for hypertension, hyperlipidemia, vitamin D deficiency, admitted with near syncope, possible intracerebral bleed, etiology is not clear for bleed. Bleed was mentioned in CAT scan as well as in MRI. Concern is rule out metastatic lesion that bled. The patient's earlier workup done in Dr. Cr's office, Holter was negative, started on propranolol. Now, the patient shows heart rate in telemetry normal sinus with atrial premature complexes. Lowest heart rate was 49. Dr. Colin is concerned about the tachybrady syndrome versus sick sinus syndrome. Recent echo on 07/09/2018 shows essentially normal chamber size, ejection fraction 58%, trace aortic regurgitation, mild mitral regurgitation, mild tricuspid regurgitation, RV systolic pressure 31%. The patient had a stress test on 07/20/2018 that shows fixed defect, apical ejection fraction 71%. The patient had a Holter dated 05/31/[address] Cr's office that shows normal sinus with sinus tachycardia, lowest heart rate of 31, maximum heart rate 120. The patient was started on propranolol, now which is on hold. Plan is to do the Holter to rule out any tachybrady syndrome. The patient is now being treated with steroid. History of hypertension, history of breast cancer in the past, history of lumpectomy 23 years ago, history of hemorrhagic brain stroke, etiology not clear. Now, the patient had edema of the brain, started steroid. RECOMMENDATIONS: We will start Holter monitor to monitor the heart rate as from the telemetry it shows that the patient does not need the pacemaker, but for the definite decision whether the patient needs pacemaker or not, we will put Holter and further recommendations made after the Holter. We will follow with you. The patient is off beta-mike. We will get a EKG today. We will follow with you. Thank you Dr. Colin for providing us the opportunity in taking care of the patient, Stacie Rivera. Alexander Demarco MD
--- NOTE | 2018-08-24 14:59 | PN ---
DATE: 08/24/2018 SUBJECTIVE: This 78-year-old female was examined at her bedside on the cardiac mejía at the [facility] on 08/24/2018. Nurse Brianna Lozano nurse practitioner, was present for the interview and the case was reviewed with Danni Hernandez, registered nurse. The patient was evaluated by Dr. Demarco who has recommended a Holter monitor be applied today. I did review her EKG strips. She still has episodes of asymptomatic bradycardia, but no evidence of sustained tachycardia. She has completed her IV Decadron as outlined by Dr. Simon from Neurology and I have asked Dr. Gay to reevaluate this patient to determine needed neurology outpatient followup and medication course and duration of treatment. At present, the patient is on p.o. Keppra without incident. PHYSICAL EXAMINATION: VITAL SIGNS: Temperature is 97.9, respirations 20, pulse 66, blood pressure 128/74, pulse ox 97%. alarm security or surveillance monitor shows normal sinus rhythm. HEENT: Head: Normocephalic, atraumatic. Eyes: No icterus. Ears: Clear. Throat: Noninjected. NECK: Supple. HEART: Regular S1, S2. LUNGS: Clear. ABDOMEN: Soft. EXTREMITIES: No edema. SKIN: Without rash. NEUROLOGICAL: Intact. PSYCHOLOGICAL: Alert and oriented x3. VASCULAR: Legs warm to touch. LABORATORY DATA: White count 22,200, hemoglobin 13.9, hematocrit 42.3, platelets 236,000. Sodium 140, K 4.3, chloride 103, bicarb 23, BUN 30, creatinine 1.2, random blood sugar 93. Calcium 10.1, phosphorous 3.1, magnesium 2.7. Bilirubin 0.5, AST 59, ALT 21, alk phos 83. Cholesterol 160, triglycerides 177, LDL 66, HDL 65. TSH normal 1.41. IMPRESSION: A 78-year-old female admitted with symptomatic bradycardia, dizziness, near syncope in the setting of beta-mike propranolol-induced bradycardia with a history of tachybrady syndrome and comorbidities of brain hemorrhage approximately 1 month ago with repeat brain study showing increasing brain edema for which the patient was seen by Neurology, given IV Decadron and replaced back on oral Keppra with comorbidities of hyperlipidemia, old breast cancer, history of hypertension and Escherichia coli urinary tract infection, acute. PLAN: The patient at present will wear a Holter. We will continue Bactrim p.o. b.i.d., Evista 60 mg p.o. daily, HydroDIURIL 25 mg p.o. daily, Keppra 500 mg b.i.d. and Lipitor 40 mg p.o. daily. As discussed with the patient and nursing, her elevated white blood cell count is most likely secondary to recent steroids and I will order a CBC for the a.m. for completeness sake. Based on her clinical progress and results of Holter and followup with Dr. Demarco from Cardiology and Dr. Gay from Neurology, disposition planning will be entertained. Greater than 35 minutes was spent in the care management discussion of this patient with herself, nursing, nurse practitioner and co-consultants. All questions were answered. Rosalba Colin MD MTDAly
[2018-08-24 23:35] VITALS: RESP 20
[2018-08-25 06:16] VITALS: O2SAT 94
[2018-08-25 07:06] LABS: HEMOGLOBIN 13.4 g/dL (12.0-16.0); MEAN CELL VOLUME 84.2 fl (80.0-105.0); MEAN CORPUSCULAR HEMOGLOBIN 27.2 pg (25.0-35.0); MEAN CORPUSCULAR HGB CONC 32.3 g/dl (31.0-37.0); MEAN PLATELET VOLUME 11.6 fl (7.0-11.0); RBC 4.93 10^6/uL (3.5-6.1); RED CELL DISTRIBUTION WIDTH 13.8 % (11.5-14.5); WHITE BLOOD COUNT 10.3 10^3/uL (4.5-11.0)
[2018-08-25] MEDS: Tmp-Smz 800 mg-160 mg DS Tab PO SCH (09:18)
[2018-08-25 12:05] VITALS: BP 131/61; PULSE 94; TEMP 97.9
--- NOTE | 2018-08-25 14:54 | PN ---
DATE: 08/25/2018 REASON FOR CONSULTATION AND FOLLOWUP: Bradycardia, was on propranolol, cardiac evaluation, admitted with syncope, rule out metastatic lesion, intracranial hemorrhage, etiology not clear, rule out tachybrady syndrome. SUBJECTIVE: The patient denies any chest pain, shortness of breath, or any palpitation. Feels frustrated. Wanted to go home. PHYSICAL EXAMINATION: GENERAL: Not in apparent distress, but very anxious to go home. VITAL SIGNS: Temperature afebrile, heart rate 52, blood pressure 106/58. HEENT: PERRLA. Extraocular muscles intact. NECK: Supple. No carotid bruit, no thyromegaly. CHEST: Clear to auscultation. HEART: S1 and S2 regular. ABDOMEN: Soft. EXTREMITIES: Clubbing and cyanosis negative. LABORATORY DATA: Blood workup as follows: WBC 10.3, hemoglobin 13.4, hematocrit 41.5, platelet count 221. Chemistry shows sodium 140, potassium 4.2, chloride 103, carbon dioxide 23, anion gap 18, BUN 30, and creatinine 1.2. Telemetry shows normal sinus. IMPRESSION: A 78-year-old female with past medical history significant for hypertension, hyperlipidemia, vitamin D deficiency, admitted with near-syncope, possible intracerebral bleed, etiology not clear. Bleed was mentioned in CAT scan, later MRI has bleed. Concern is to rule out metastatic lesion that bled. The patient had a Holter monitor done in Dr. Cr's office which showed some tachycardia, the propranolol started on the patient with bradycardia, so is on hold. Lowest heart rate was 49 on admission, but no further episode of bradyarrhythmia noted. Last echo on 07/09/2018, essentially normal chamber size, ejection fraction 58%, trace aortic regurgitation, mild mitral regurgitation, mild tricuspid regurgitation, right ventricular systolic pressure 31 mmHg. The patient had a stress test on 07/10/2018 that with fixed defect, no reversible ischemia. The patient will repeat Holter because of concern of the tachy-radha syndrome. The patient is wearing Holter. So far, telemetry did not show any significant tachy-radha syndrome. RECOMMENDATIONS: Follow up Holter, off beta-mike. Neuro workup in progress. Will follow with you. After the Holter is completed, the patient can be discharged home. Thank you Dr. Colni for providing us the opportunity in taking care of the patient, Stacie Rivera. Alexander Demarco MD
--- NOTE | 2018-08-26 21:49 | DS ---
HISTORY OF PRESENT ILLNESS: This 78-year-old female was seen at her bedside on the morning of , 08/25/2018 and prepared for discharge. FINAL DIAGNOSES: Left brain hemorrhage approximately 1 month ago with persistent brain edema noted on repeat CT and MRI of the brain, also with comorbidities of old breast cancer, dizziness improved, bradycardia resolved, and hyperlipidemia. DISPOSITION: Home. CONSULTANTS: Dr. Demarco from Cardiology, Dr. Saravanan Simon and Dr. Blackwell from Neurology. DISCHARGE MEDICATIONS: Prednisone 40 mg p.o. daily #5 no refill, vitamin D 2000 units p.o. daily, Keppra 250 mg p.o. b.i.d., Evista 60 mg p.o. daily, Crestor 10 mg p.o. daily. FOLLOWUP: The patient was advised to follow up with Dr. Simon in [address] Demarco from Cardiology HOSPITAL COURSE: This 78-year-old female was admitted to my service after complaining of dizziness and bradycardia secondary to outpatient propranolol therapy which was withheld. The patient was noted to have asymptomatic bradycardia that improved with the discontinuation of propranolol and no evidence of sustained tachycardia. Because of complaints of dizziness, she had scans of her head including CT and MRI that showed persistent brain edema for which consultation with Dr. Simon and Dr. Gay was obtained. Their plan was to give the patient IV Decadron and oral prednisone and reinstitute her oral Keppra for seizure prevention. As a precaution, she underwent chest, abdomen and pelvic CT to rule out any focus including metastatic cancer to explain her brain hemorrhage. No acute findings and no evidence of metastatic disease were noted. At the time of her discharge, she had completed Holter monitor that will be reviewed by Dr. Demarco and vital signs showed temperature of 97.9, respirations 20, pulse 94 and blood pressure 131/61 with a pulse ox of 97%. The patient is discharged to home. She is on no beta blockers at the present time. She is aware that should she have any evidence of tachybrady syndrome, she may need a pacemaker and then beta blockade in her future. She is clearly aware of this finding and in agreement with it as well. Greater than 35 minutes were spent in the discharge management of this patient including outlining of instructions medication and review of labs and x-rays with herself and nurse, Anu Phan and discharge instructions to follow up with Dr. Demarco and Dr. Simon. All questions were answered. Rosalba Colin MD
== END 2018-08-25 13:08 | disposition home or self-care (01) | DRG 64 ==
LOC: ED 14:22 → ERH 17:30 → 2RSO 23:18
PROVIDERS: ADMIT Internal Medicine; ATTEND Internal Medicine
DX: I61.9 Nontraumatic intracerebral hemorrhage, unspecified (principal); G93.6 Cerebral edema; N39.0 Urinary tract infection, site not specified; B96.20 Unspecified Escherichia coli [E. coli] as the cause of diseases classified elsewhere; I08.3 Combined rheumatic disorders of mitral, aortic and tricuspid valves; I10 Essential (primary) hypertension; E78.5 Hyperlipidemia, unspecified; R00.1 Bradycardia, unspecified; E78.00 Pure hypercholesterolemia, unspecified; E55.9 Vitamin D deficiency, unspecified; Z85.3 Personal history of malignant neoplasm of breast

== ENCOUNTER 2018-09-20 07:58 | Outpatient (CLI) | payer MEDICARE | END 2018-09-20 07:59 | disposition home or self-care (01) | LOC: RAD 07:58 ==

== ENCOUNTER 2018-10-13 14:55 | Observation (INO) | payer MEDICARE ==
[2018-10-13 14:56] VITALS: BMI 24.7
[2018-10-13] MEDS ORDERED: Sodium Chloride 0.9% 1,000 ML IV STA (15:36)
--- NOTE | 2018-10-13 15:37 | ED PDOC ---
Arrival/HPI - General Chief Complaint: Dizziness/Lightheaded Time Seen by Provider: 10/13/18 15:19 Historian: Patient - History of Present Illness Narrative History of Present Illness (Text): 10/13/18 15:33 78 year old female, whose past medical history includes HTN, HLD, prior spontaneous intracranial hemorrhage of unknown etiology 15 y ago, R breast cancer s/p lumpectomy in remission x 17 years, presents to the ED for evaluation of dizziness since prior to arrival. Patient states she was having a good time with her friend at home when she experienced an episode of dizziness/lightheadedness, described as feeling like passing out, with palpitations, prompting her to present to the ED for evaluation. Patient denies any loss of consciousness or syncopal episode prior to arrival. Patient states similar episode in the past secondary to anemia and hypertension medication, which was later discontinued at the time. Patient denies any other associated somatic complaints. Patient denies any fevers, chills, headache, chest pain, shortness of breath, dyspnea on exertion, cough, abdominal pain, nausea, vomiting, diarrhea, back pain, neck pain, urinary or bowel symptoms or any other complaints. Patient had recent admission or symptomatic bradycardia thought secondary to propranolol use and had holter monitor by Dr. Demarco. PMD: Dr. Renteria Director Heart: Dr. Cr 10/13/18 15:59 10/13/18 16:53 10/13/18 18:04 Time/Duration: Prior to Arrival Symptom Onset: Gradual Symptom Course: Unchanged Activities at Onset: Light Context: Home Past Medical History - Provider Review Nursing Documentation Reviewed: Yes - Infectious Disease Hx of Infectious Diseases: None - Reproductive Menopause: Yes - Cardiac Hx Cardiac Disorders: Yes Hx Hypertension: Yes - Pulmonary Hx Respiratory Disorders: No Hx Asthma: No Hx Bronchitis: No Hx Chronic Obstructive Pulmonary Disease (COPD): No Hx Emphysema: No Hx Pneumonia: No Hx Respiratory Aspiration: No Hx Respiratory Tract Infection: No Hx Sleep Apnea: No Hx Tuberculosis: No - Neurological Hx Seizures: Yes - HEENT Hx HEENT Disorder: No - Renal Hx Renal Disorder: No - Endocrine/Metabolic Hx Endocrine Disorders: No - Hematological/Oncological Hx Cancer: Yes Hx Unexplained Bleeding: Yes - Integumentary Hx Dermatological Disorder: No - Musculoskeletal/Rheumatological Hx Falls: No - Gastrointestinal Hx Gastrointestinal Disorders: No - Genitourinary/Gynecological Hx Genitourinary Disorders: No Hx Reproductive Disorders: No - Psychiatric Hx Emotional Abuse: No Hx Physical Abuse: No Hx Substance Use: No - Surgical History Hx Cardiac Catheterization: No Hx Coronary Stent: No - Anesthesia Hx Anesthesia Reactions: No Hx Malignant Hyperthermia: No - Suicidal Assessment Feels Threatened In Home Enviroment: No Family/Social History - Physician Review Nursing Documentation Reviewed: Yes Family/Social History: Unknown Family HX Smoking Status: Never Smoked Hx Alcohol Use: No Hx Substance Use: No Allergies/Home Meds Allergies/Adverse Reactions: Allergies No Known Allergies Allergy (Verified 08/06/18 20:46) Home Medications: Home Meds Medication Instructions Recorded Confirmed Cholecalciferol (Vitamin D3) 2,000 units PO DAILY 12/23/17 10/13/18 [Vitamin D3] Raloxifene [Evista] 60 mg PO DAILY 12/23/17 10/13/18 Rosuvastatin Calcium [Crestor] 10 mg PO QOTHERDAY 12/23/17 10/13/18 Lkhpc-3-Spaf Ethyl Esters [OMEGA 3] 500 mg PO DAILY 07/20/18 10/13/18 Hydrochlothiazide 12 mg PO DAILY 10/13/18 10/13/18 Levetiracetam [Keppra] 250 mg PO BID 10/13/18 10/13/18 Review of Systems - Review of Systems Constitutional: absent: Fevers Eyes: absent: Vision Changes Respiratory: absent: SOB, Cough Cardiovascular: absent: Chest Pain Gastrointestinal: absent: Abdominal Pain, Constipation, Diarrhea, Nausea, V omiting Genitourinary Female: absent: Dysuria, Urine Output Changes Musculoskeletal: absent: Back Pain, Neck Pain Skin: absent: Rash Neurological: Dizziness. absent: Headache, Focal Weakness, Gait Changes, Speech Changes, Facial Droop Endocrine: absent: Diaphoresis Psychiatric: absent: Depression Physical Exam Vital Signs Reviewed: Yes Temperature: Afebrile Blood Pressure: Normal Pulse: Regular Respiratory Rate: Normal Appearance: Positive for: Well-Appearing, Non-Toxic, Other (Anxious appearing) Pain Distress: None Mental Status: Positive for: Alert and Oriented X 3 - Systems Exam Head: Present: Atraumatic, Normocephalic Pupils: Present: PERRL Extroacular Muscles: Present: EOMI Conjunctiva: Present: Normal Neck: Present: Normal Range of Motion Respiratory/Chest: Present: Clear to Auscultation, Good Air Exchange. No: Respiratory Distress, Accessory Muscle Use Cardiovascular: Present: Normal S1, S2, Tachycardic. No: Murmurs Abdomen: No: Tenderness, Distention, Peritoneal Signs Upper Extremity: Present: Normal Inspection. No: Cyanosis, Edema Lower Extremity: Present: Normal Inspection. No: Edema Neurological: Present: GCS=15, Speech Normal Skin: Present: Warm, Dry, Normal Color. No: Rashes Psychiatric: Present: Alert, Oriented x 3, Anxious Medical Decision Making ED Course and Treatment: 10/13/18 15:35 Impression: 78 year old female presents to the ED for evaluation of dizziness since prior to arrival. Plan: -- Labs -- Chest X-ray -- IV Fluids -- Reassess and disposition Prior Visits: Notes and results from previous visits were reviewed. Progress Notes: 10/13/18 15:44 EKG reviewed, shows NSR @99 bpm, no acute ST/T wave changes. Unchanged from prior EKG performed on 08/24/18. Chart review shows holter monitor placed on 08/24/[address] Demarco. Stress test performed on 07/20/18 was normal. 10/13/18 16:[address] Colin, who is aware and agrees with ED management plan, accepts patient admission under her service. Requests Dr. Demarco on consult for cardiology. 10/13/18 16:48 Chest X-ray reviewed by radiologist, shows no active disease. 10/13/18 16:57 CT of head reviewed by radiologist, shows: There is focal atrophy and ecephalomalacia at the site of previous hemorrhage in the right parietal lobe. There is some chronic hemosiderin deposition. There is no new area of hemorrhage. No acute intracranial findings. 10/13/18 18:05 - Scribe Statement The provider has reviewed the documentation as recorded by the [facility]. All medical record entries made by the [facility] were at my direction and personally dictated by me. I have reviewed the chart and agree that the record accurately reflects my personal performance of the history, physical exam, medical decision making, and the department course for this patient. I have also personally directed, reviewed, and agree with the discharge instructions and disposition. Disposition/Present on Arrival - Present on Arrival Any Indicators Present on Arrival: No History of DVT/PE: No History of Uncontrolled Diabetes: No Urinary Catheter: No History of Decub. Ulcer: No History Surgical Site Infection Following: None - Disposition Have Diagnosis and Disposition been Completed?: Yes Diagnosis: Near syncope, Palpitations Disposition: HOSPITALIZED Disposition Time: 16:45 Patient Plan: Observation Condition: FAIR
[2018-10-13 16:19] LABS: BASO # 0.02 K/mm3 (0.0-2.0); BASO % 0.2 % (0.0-3.0); EOS # 0.1 (0.0-0.7); EOS % 1.1 % (1.5-5.0); HEMOGLOBIN 12.9 g/dL (12.0-16.0); LYMPH # 1.5 (1.2-3.4); LYMPH % 15.2 % (22.0-35.0); MEAN CELL VOLUME 85.7 fl (80.0-105.0); MEAN CORPUSCULAR HEMOGLOBIN 27.5 pg (25.0-35.0); MEAN CORPUSCULAR HGB CONC 32.1 g/dl (31.0-37.0); MEAN PLATELET VOLUME 11.9 fl (7.0-11.0); MONO # 0.7 (0.1-0.6); MONO % 6.6 % (1.0-6.0); RBC 4.69 10^6/uL (3.5-6.1); RED CELL DISTRIBUTION WIDTH 13.4 % (11.5-14.5); WHITE BLOOD COUNT 9.9 10^3/uL (4.5-11.0)
[2018-10-13 16:30] LABS: INR 1.09; PARTIAL THROMBOPLASTIN TIME 31.8 Seconds (26.9-38.3); PROTHROMBIN TIME 12.1 SECONDS (9.4-12.5)
[2018-10-13 16:31] LABS: ALB/GLOB RATIO 1.2 (1.1-1.8); ALBUMIN 4.1 g/dL (3.0-4.8); ALT/SGPT 20 U/L (7-56); AST/SGOT 28 U/L (14-36); BLOOD UREA NITROGEN 19 mg/dL (7-21); CALCIUM 9.3 mg/dL (8.4-10.5); GFR NON-AFRICAN AMERICAN > 60
--- NOTE | 2018-10-13 16:35 | CT ---
Date of service: 10/13/2018 PROCEDURE: CT HEAD WITHOUT CONTRAST. HISTORY: near syncope, hx of brain hemorrhage COMPARISON: 08/19/2018 TECHNIQUE: Axial computed tomography images were obtained through the head/brain without intravenous contrast. Radiation dose: Total exam DLP = 759.8 mGy-cm. This CT exam was performed using one or more of the following dose reduction techniques: Automated exposure control, adjustment of the mA and/or kV according to patient size, and/or use of iterative reconstruction technique. FINDINGS: HEMORRHAGE: There is focal atrophy and encephalomalacia at the site of previous hemorrhage in the right parietal lobe. There is some chronic hemosiderin deposition. There is no new area of hemorrhage. BRAIN: No mass effect or edema. No acute intracranial findings VENTRICLES: Unremarkable. No hydrocephalus. CALVARIUM: Unremarkable. PARANASAL SINUSES: Unremarkable as visualized. No significant inflammatory changes. MASTOID AIR CELLS: Unremarkable as visualized. No inflammatory changes. OTHER FINDINGS: None. IMPRESSION: There is focal atrophy and encephalomalacia at the site of previous hemorrhage in the right parietal lobe. There is some chronic hemosiderin deposition. There is no new area of hemorrhage. No acute intracranial findings.
[2018-10-13 16:37] LABS: B-TYPE NATRIURETIC PEPTIDE 152 pg/mL (0-450); TROPONIN I < 0.01 ng/mL
[2018-10-13 16:41] LABS: FREE T4 1.08 ng/dL (0.78-2.19)
--- NOTE | 2018-10-13 16:42 | RAD ---
Date of service: 10/13/2018 HISTORY: near syncope COMPARISON: 08/19/2018 TECHNIQUE: 1 view obtained. FINDINGS: LUNGS: No active pulmonary disease. PLEURA: No significant pleural effusion identified, no pneumothorax apparent. CARDIOVASCULAR: No aortic atherosclerotic calcification present. Normal cardiac size. No pulmonary vascular congestion. OSSEOUS STRUCTURES: No significant abnormalities. VISUALIZED UPPER ABDOMEN: Normal. OTHER FINDINGS: None. IMPRESSION: No active disease.
--- NOTE | 2018-10-13 17:41 | CARD ---
APPROVED REPORT Date of service: 10/13/2018 EKG Measurement Heart [id number] <Conclusion> Normal sinus rhythm Cannot rule out Anterior infarct, age undetermined Abnormal ECG
[2018-10-13] MEDS ORDERED: Influenza Vaccine 60 mcg/0.5 mL SYR (4YR UP) IM ONE (23:11)
[2018-10-13] MEDS ORDERED: Pneumococcal 23-Valent Vaccine IM ONE (23:11)
[2018-10-14 03:24] VITALS: RESP 18
[2018-10-14 06:27] VITALS: BP 116/61; TEMP 98; O2SAT 97
[2018-10-14] MEDS ORDERED: Cholecalciferol 1,000 INTLU TAB PO SCH (10:00)
[2018-10-14 11:02] LABS: BLOOD UREA NITROGEN 16 mg/dL (7-21); CALCIUM 9.5 mg/dL (8.4-10.5); GFR NON-AFRICAN AMERICAN > 60
--- NOTE | 2018-10-14 12:04 | DS ---
DATE OF EVALUATION; 10/14/2018. FINAL DIAGNOSES: Palpitations and lightheadedness. The patient was cleared for discharge by Dr. Alexander Demarco from Cardiology. Nursing will clarify discharge instructions with Dr. Demarco and the timing of her loop recorder for outpatient monitoring of cardiac issues under his direction. DISCHARGE DIET: Heart healthy. DISCHARGE MEDICATIONS: Crestor 10 mg p.o. daily, Evista 60 mg p.o. daily, fish oil 500 mg p.o. daily, Keppra 250 mg p.o. b.i.d., hydrochlorothiazide 12.5 mg p.o. daily and vitamin D 2000 units p.o. daily. HOSPITAL COURSE: This is a 78-year-old female who presented to the [facility] emergency room complaining of lightheadedness, palpitations and dizziness with near syncope. She was admitted to the cardiac mejía where she was observed overnight to be in a normal sinus rhythm with no significant bradycardia or tachycardia. The patient was seen on the morning of discharge by Dr. Sree Demarco, who reportedly cleared this patient for discharge. I will have the nurse practitioner clarify his discharge instructions, orders and timing of a loop recorder for outpatient monitoring of potential arrhythmia. At the time of my dictation and interview, the patient was in a normal sinus rhythm on monitoring coordinator. She was denying any fever, chills, chest pain or shortness of breath. VITAL SIGNS: Temperature 98, respirations 18, pulse 63 and blood pressure 116/61 with a pulse ox of 97%. The patient was cleared for discharge to home, will be monitored by Dr. Sree Demarco as an outpatient and has been advised for any change in signs and symptoms to present directly to the [facility] ER. Greater than 35 minutes was spent in the care management, review of labs, orders, x-rays, discussion of medication and clarifying discharge instructions with nursing staff, who will discuss this with Dr. Demarco from Cardiology. All questions were answered. Rosalba Colin MD DONNA
[2018-10-14 16:14] VITALS: PULSE 83
--- NOTE | 2018-10-14 16:27 | HP ---
DATE OF EVALUATION: 10/13/2018 HISTORY OF PRESENT ILLNESS: This 78-year-old female presented to the [facility] emergency room on the afternoon of October. Her case was reviewed in detail with emergency room physician Dr. Krystal Johns medical physician. Cleopatra Rivera is a 78-year-old female. She has a past medical history of chronic hypertension, hyperlipidemia and had a spontaneous intracranial hemorrhage of unclear etiology in the past several months. She also has a distant history of right breast cancer status post lumpectomy and under oncological follow up with Dr. Seymour, which has been in remission for many years. The patient was at a friend's home earlier on the day of admission when she experienced lightheadedness, dizziness and felt to have palpitations. She has a questionable history of tachybrady syndrome in the past. On a previous admission, her beta-mike was withheld upon the advice of Dr. Demarco. She had a unremarkable stress test with him in the recent past and was advised to come to the emergency room for further evaluation of his symptomatology. ALLERGIES: THE PATIENT DENIES ANY ALLERGIES TO MEDICATIONS. SOCIAL HISTORY: Is a nondrinker, nonsmoker and non IV drug misuser. OUTPATIENT MEDICATIONS: Include Crestor 10 mg p.o. daily, Evista 60 mg p.o. daily, Keppra 250 mg p.o. b.i.d., hydrochlorothiazide 12.5 mg p.o. daily and vitamin D 2000 units p.o. daily. REVIEW OF SYSTEMS: CONSTITUTIONAL: She denied fever, chills. HEAD: No headache or seizures. EYES: No change in visual acuity. EAR: No hearing loss. THROAT: No swallowing difficulty. NECK: No stiffness. CARDIAC: Chronic hypertension, hyperlipidemia and palpitations. PULMONARY: No cough. No hemoptysis. GI: No hematemesis. No melena. : No dysuria. SKIN: No rash. VASCULAR: No claudication. PSYCHOLOGICAL: Chronic anxiety. NEUROLOGICAL: History of a spontaneous intracranial hemorrhage for which she follows with Dr. Simon, who has placed the patient on prophylactic Keppra and advised no anticoagulation at present. FAMILY HISTORY: Noncontributory. She is a retired homemaker. PHYSICAL EXAMINATION VITAL SIGNS: At the time of the emergency room evaluation she was noted to have a temperature of 97.9, respirations 18, pulse 87 and blood pressure 137/69 with a pulse ox of 97%. HEAD: Normocephalic and atraumatic. EYES: No icterus. EARS: Clear. THROAT: Noninjected. NECK: Supple. HEART: S1 and S2. LUNGS: Clear. ABDOMEN: Soft. EXTREMITIES: No edema. SKIN: Without rash. NEUROLOGICAL: Intact. PSYCHOLOGICAL: Alert and oriented x3. VASCULAR: Legs warm to touch. LABORATORY DATA: White count 9900, hemoglobin 12.9, hematocrit 40.2 and platelets 206,000. PT/INR 1.09 and PTT 31.8. Sodium 141, potassium 3.5, chloride 105, bicarb 27, BUN 19, creatinine 0.7, random blood sugar 137, calcium is 9.3, phosphorous 2.9, magnesium 2.1, bilirubin 0.6, AST 28, ALT 20, and alk phos 60 with a troponin less than 0.01. Free T4 was normal at 1.08. TSH was normal at 2.06. EKG was reviewed. It showed normal sinus rhythm with nonspecific ST-T wave changes. Chest x-ray was reviewed, it showed no active pulmonary disease, no infiltrate, no pneumonia, no congestive heart failure, no pleural effusion and no pneumothorax. Head CT was reviewed. It showed focal atrophy and encephalomalacia at the site of her previous hemorrhage in the right parietal lobe. There was some chronic to hemosiderin deposition, but no new areas of hemorrhage and no acute intracranial findings. IMPRESSION: This is a 78-year-old female with palpitations, lightheadedness, history of possible tachybrady syndrome which prompted the discontinuation of her beta-mike by Dr. Demarco from Cardiology in the recent past with comorbidities of distant history of breast cancer, hyperlipidemia, hypertension and spontaneous intracranial hemorrhage on seizure prophylaxis. PLAN: At present is to admit this patient to the cardiac unit. She will have medications outlined, including Keppra, Lipitor, hydrochlorothiazide, Tylenol and vitamin D. She has been placed on a heart healthy diet. She will be evaluated by Dr. Demarco from Cardiology and based on his recommendations additional diagnostic workup and testing will be entertained. Greater than 60 minutes was spent in the care, coordination of care, discussion of this case with Dr. Johns, emergency room medical physician and outlining of orders with Lucy Ibrahim, registered nurse. All questions were answered. Rosalba Colin MD DONNA
--- NOTE | 2018-10-14 18:27 | CON ---
DATE: 10/14/2018 CONSULT SERVICE: Cardiology. REASON FOR EVALUATION: Near syncope, dizziness and lightheadedness. BRIEF CLINICAL HISTORY: This is a 78-year-old female with past medical history significant for hypertension, hyperlipidemia, arrhythmia, who was complaining of palpitation, was on propranolol, admitted two weeks ago with palpitation, found to be hemorrhage, initially thought to be metastatic lesion in the brain, but later on turned out to be it is hemorrhage, admitted yesterday again with a feeling of dizziness, also complaining of some choking sensation in the throat as well as giddiness, but denies any chest pain, denies any feeling of loss of conscious. PAST MEDICAL HISTORY: Significant for history of hypertension, hyperlipidemia, spontaneous intracranial bleed 6 to 8 weeks ago, history of bradycardia, history of tachycardia, was on propranolol at one point. History of multiple Holter done, did not show any significant indication for pacemaker. PAST SURGICAL HISTORY: Significant for lumpectomy 23 years ago on the right breast. CURRENT MEDICATIONS: The patient is taking Crestor 10 mg daily, Evista 60 mg daily, [place] 500 mg, Keppra 250 mg, hydrochlorothiazide 12.5 mg daily, and vitamin D3. ALLERGIES: NO KNOWN DRUG ALLERGY. RECENT CARDIAC WORKUP: As follows; the patient had an echocardiography on 07/11/2018 that showed ejection fraction 58%, normal chamber size. Trace aortic regurgitation, moderate mitral regurgitation, mild tricuspid regurgitation, RV systolic pressure 30. The patient has a stress test dated 07/20/2018 that shows fixed apical defect possibly secondary to a breast attenuation, ejection fraction 70%. The patient has a Holter twice one dated 05/31/2018, that shows normal sinus to sinus tachycardia. Lowest heart rate 45, maximum heart rate about 120. Runs of APCs noted, longest RR is 3 seconds. No significant arrhythmia noted except as mentioned above. The patient had a repeat Holter monitor done while the patient was in [facility] dated 08/24/2012 that shows the lowest heart rate 45 at 05:07 p.m. and average heart rate 70, the maximum heart rate is 138. REVIEW OF SYSTEMS: As per HPI. PHYSICAL EXAMINATION: As follows; GENERAL: Height of the patient 5 feet 2 inches. Weight of the patient 135 pounds. Body mass index 24.7 kg per m2. VITAL SIGNS: Temperature afebrile, heart rate 60, blood pressure 106/61. HEENT: PERRLA. Extraocular muscles intact. NECK: Supple. No carotid bruit or thyromegaly. CHEST: Clear to auscultation. HEART: S1 and S2 regular. ABDOMEN: Soft. EXTREMITIES: Clubbing and cyanosis, negative. LABORATORY DATA: Blood workup as follows; WBC 9.9, hemoglobin 12.9, hematocrit 40.2, platelet count 206. Chemistry shows sodium 141, potassium 3.5, chloride 105, carbon dioxide 23, anion gap of 13, BUN 19, creatinine 0.7. Troponin remains negative 0.01. IMPRESSION AND PLAN: A 78-year-old female with a past medical history of hypertension, hyperlipidemia, vitamin D deficiency, admitted with near syncope and feel dizziness and giddiness. Last time, the patient also admitted with similar symptoms and found to be intracerebral bleed without spontaneous, no evidence of arrhythmia noted, multiple times Holter was done, but no significant arrhythmia except lowest heart rate is 45, maximum heart rate is 130. Recent stress test dated 07/10/2018, was negative for ischemia. Recent echo dated 07/09/2018, essentially normal chamber size with ejection fraction 58%, trace aortic regurgitation, mild mitral regurgitation, mild tricuspid regurgitation noted. In view of recurrent syncope suggest loop recorder, we will schedule the patient for loop recorder on Wednesday at 07:30. Discussed with the patient and we will also discussed with the family. We will resumed the medication, continue monitor in telemetry, we will follow with you. SO FAR NO EVIDENCE OF HARD EVIDENCE OF PUT THE PACEMAKER, so we will get the loop recorder and see if the patient needs a pacemaker or not, because the Holter monitor is only for 24 hours, we do not know what is happening behind the 24 hours window. So to get any hard evidence before we put the pacemaker, we will put loop recorder and if shows significant bradycardia or symptomatic bradycardia or tachycardia, we will put the pacemaker and put high doses of beta-mike. We will repeat the blood workup. Yesterday the patient had low potassium, so we will repeat today. We will repeat potassium as well as phosphatase as well as SMA-7. We will keep n.p.o. after 12 midnight Wednesday for loop recorder on Wednesday. We will also discuss with the family. We will follow with you. Thank you Dr. Colin for providing us the opportunity in taking care of the patient, Stacie Rivera. Alexander Demarco MD
== END 2018-10-14 15:20 | disposition home or self-care (01) ==
LOC: ED 14:55 → ERH 16:43 → 2RSO 18:39
PROVIDERS: ADMIT Internal Medicine; ATTEND Internal Medicine
DX: R55 Syncope and collapse (principal); R00.2 Palpitations; E78.5 Hyperlipidemia, unspecified; I10 Essential (primary) hypertension; Z85.3 Personal history of malignant neoplasm of breast; E55.9 Vitamin D deficiency, unspecified
CPT/HCPCS: 36415; 70450; 71045; 80048; 80053; 82550; 83615; 83735; 83880; 84100; 84439; 84443; 84484; 85025; 85610; 85730; 93005; 96360; 99285; G0378; J7030

== ENCOUNTER 2018-10-17 06:20 | Day surgery (SDC) | payer MEDICARE ==
[2018-10-14 16:45] VITALS: BMI 23.9
--- NOTE | 2018-10-15 01:53 | HP ---
DATE OF EXAM: 10/14/2018 REASON FOR ADMISSION: Implantation of loop recorder. HISTORY OF PRESENT ILLNESS: This is a 78-year-old female with a past medical history significant for hypertension, hyperlipidemia, arrhythmia, recently who had admitted here after a syncopal episode found to be intractable bleed, initial shows suspicious for malignancy, but later on shows watershed area and hemorrhage four weeks ago. The patient admitted again on 10/13/2018, with lightheadedness and dizziness. PAST MEDICAL HISTORY: Significant for history of hypertension, hyperlipidemia, spontaneous intracerebral bleed as mentioned above, history of breast cancer with lumpectomy many years ago, history of bradycardia. The patient has been worked up before and Holter monitor done in Dr. Cr's office recently in early August and metoprolol was changed to propranolol, who recently admitted with syncope on 08/19/2018, secondary to intracerebral bleed. Past history significant for hypertension and hyperlipidemia. PAST SURGICAL HISTORY: Significant for lumpectomy 23 years ago of the right breast. PREVIOUS CARDIAC WORKUP: As follows; the patient had a Holter monitor twice done. Last Holter here in the [facility] was done on 08/24/2018, that showed sinus arrhythmia with sinus brachycardia. sinus tachycardia, lowest heart rate was 45, maximum heart rate was 145, longest RR 1.7 seconds, slowest heart rate at 05:07 p.m. at rate of 45 and fastest heart rate was 06:55 a.m. at 138, average heart rate was 70, date of the Holter monitor was 08/24/2018. The patient had last echo dated 07/09/2018, that essentially normal chamber size, ejection fraction 58%, trace aortic regurgitation, mild mitral regurgitation, mild tricuspid regurgitation, right ventricular systolic pressure 31. The patient also had stress test done dated 07/10/2018, that shows fixed defect, no reversible ischemia. On last admission, the patient's telemetry did not show any significant tachybrady syndrome on 08/2018. On that admission, the patient's CAT scan initially shows suspicious of intracerebral bleed versus rule out metastasis disease. Later on the MRI confirmed that the patient has an intracerebral bleed and the patient was discharged home off beta-mike after the last Holter completed. SOCIAL HISTORY: Denies any smoking. Denies any history of alcohol abuse. CURRENT MEDICATIONS: The patient at home was taking turmeric one capsule daily, Crestor 10 mg daily, Evista 60 mg daily, hydrochlorothiazide 12 mg daily and vitamin D3. ALLERGIES: NO KNOWN DRUG ALLERGIES. REVIEW OF SYSTEMS: As per HPI. PHYSICAL EXAMINATION GENERAL: Height of the patient 5 feet 2 inches, weight of the patient 131 pounds, body mass index 24.1 kg/m2. VITAL SIGNS: Temperature afebrile. Heart rate 83, blood pressure 106/61. HEENT: PERRLA. Extraocular muscle intact. NECK: Supple. No carotid bruits or thyromegaly. CHEST: Clear to auscultation. HEART: S1 and S2 regular. ABDOMEN: Soft. EXTREMITIES: Clubbing and cyanosis, negative. LABORATORY DATA: WBC 9.9, hemoglobin 12.9, hematocrit 40.2, platelet count 206 as of 10/13/2018. Coagulation workup as of 10/13/2018, shows a PT/INR 12.1 and INR 1.0, PTT 31.8. Chemistry shows sodium 140, potassium 3.7, chloride 106, carbon 26, anion gap of 11, BUN 16, creatinine 0.8. Troponin remains flat. EKG on admission showed normal sinus, poor RR progression of unknown duration. IMPRESSION AND PLAN: This is a 78-year-old female with past medical history significant for intracerebral bleed, hypertension, hyperlipidemia, admitted with dizziness and headache. Prior to that, the patient admitted with a near syncope possibly secondary to intracerebral bleed and no any hard evidence for put the pacemaker at this time, so best thing is suggested a loop recorder, so the patient admitted here for the loop recorder to rule out any tachy or bradyarrhythmia. We will proceed for loop recorder. Further recommendation after the loop recorder. I will follow with you. Risks, benefits, and alternatives discussed with the patient. The patient agreed to proceed for loop recorder. Thank you Dr. Colin for providing us the opportunity in taking care of the patient, Stacie Rivera. Alexander Demarco MD
[2018-10-17 06:54] VITALS: RESP 18; O2SAT 97
[2018-10-17] MEDS ORDERED: Lidocaine PF 2% (5 ml) Inj (For Cardiac Arrhy) ONE (07:19)
[2018-10-17] MEDS ORDERED: Sodium Chloride 0.9% 1,000 ML IV SCH (08:15)
[2018-10-17 08:55] VITALS: BP 119/53; PULSE 81; TEMP 98.2
--- NOTE | 2018-10-17 11:09 | CARDCATH ---
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 PROCEDURE PERFORMED: Implantation of loop recorder (LINQ) from [employer]. INDICATION FOR THE PROCEDURE: 1. Recurrent syncope. 2. Sick sinus syndrome. 3. Tachybrady syndrome. 4. Dizziness. 5. Lightheadedness. 6. Multiple admissions to the ER. SCHEDULING: Elective. TREE TRIMMER: Alexander Demarco MD VENEER DRIER TAILER: ERICA Moses. TYPE OF ANESTHESIA USED: Local lidocaine, no sedation used. BRIEF CLINICAL HISTORY: This is a 78-year-old female with past medical history of hypertension, hyperlipidemia, history of recurrent syncope recently admitted with intracerebellar bleed. The patient says that she feels dizzy and palpitation.. The patient has multiple times Holter monitor done, in Dr. Cr's office as well as here. The lowest heart rate is 50 and maximum heart rate is 107, but the patient says that few palpitations feels that she is going to pass out. The patient is off beta-mike and admitted here for the loop recorder to found out any paroxysmal atrial fibrillation. The patient is recently admitted with intracerebellar bleed on the previous admission. The patient's recent stress is normal, recent echo essentially normal. No significant structural heart disease or no ischemia dated 07/2018. PROCEDURE PERFORMED: Loop recorder implantation. TECHNIQUE: The patient was prepped and draped in the sterile standard fashion left side of the chest was prepped and local anesthesia was given at fourth intercostal spaces 1.5 cm to 2 cm away from the midsternal line and then with BP knife, loop recorder pocket was created and the loop recorder was injected (LINQ) from [employer] and the puncture site was closed with a Dermabond. The patient tolerated the procedure well and returned to the floor in stable condition. Before leaving loop recorder care as well as education was given in detail to the patient as well as son and arrangement has made for transtelephone and continues admission with Dr. Rose's office at [facility]. The patient's relevant information has been faxed to Dr. Rose and connected for transtelephonic pacemaker at [facility]. We will follow as outpatient in two weeks and Dr. Colin, in one week. Thank you Dr. Rosalba Colin, for providing us the opportunity in taking care of patient, Stacie Rivera. Alexander Demarco MD MTDAly
--- NOTE | 2018-10-17 23:40 | DS ---
BRIEF CLINICAL HISTORY: This is a 78-year-old female with past medical history significant for recurrent syncope. The patient admitted for loop recorder implantation to rule out tachybrady syndrome, sick sinus syndrome and paroxysmal atrial fibrillation. The patient underwent implantation of loop recorder (LINQ) without any complication. The patient is on the way home, is being discharged and has a followup in [address] Demarco and with Dr. Seymour in 1 week. DISCHARGE MEDICATIONS: Include resumption of all her previous medications that include Crestor 10 mg daily, Evista 60 mg daily, hydrochlorothiazide 12.5 mg daily, Keppra 500 mg in the morning, 250 mg at night, [place] 3 and turmeric that the patient started taking and Vitamin D3 as before. FINAL DIAGNOSES: Recurrent syncope, rule out tachybrady syndrome and rule out paroxysmal atrial fibrillation. PRINCIPLE PROCEDURE DONE: This admission include implantation of loop recorder from [employer] LINQ. Thank you Dr. Demarco. Signing off of the patient Stacie Rivera. Alexander Demarco MD cc: Rosalba Colin MD.
== END 2018-10-17 09:00 | disposition home or self-care (01) ==
LOC: CATH 06:20 → EDSTATUS 07:30 → CATH 09:00
PROVIDERS: ATTEND Internal Medicine Cardiovascular Disease
DX: I49.5 Sick sinus syndrome (principal); R55 Syncope and collapse; I10 Essential (primary) hypertension; E78.5 Hyperlipidemia, unspecified; Z85.3 Personal history of malignant neoplasm of breast
CPT/HCPCS: 33285; C1764; J7030; J7040

== ENCOUNTER 2018-11-29 07:33 | Outpatient (CLI) | payer MEDICARE | END 2018-11-29 07:34 | disposition home or self-care (01) | LOC: RAD 07:33 | DX: M54.5 Low back pain (principal); I62.9 Nontraumatic intracranial hemorrhage, unspecified ==